=== PATIENT | female | born 1945 | race Caucasian/White ===

== ENCOUNTER 2018-01-13 11:21 | Inpatient (IN) | payer OTHER ==
[2018-01-13] MEDS ORDERED: SODIUM CHLORIDE 0.9% 1000 ML INFUS.BAG IV ONE (11:42)
[2018-01-13] MEDS ORDERED: PANTOPRAZOLE SODIUM 40 MG VIAL ONE (11:52)
[2018-01-13] MEDS: PANTOPRAZOLE SODIUM 80 MG in SODIUM CHLORIDE 100 ML IVPB ONE ×2 (11:54→21:06)
[2018-01-13] MEDS ORDERED: OCTREOTIDE ACETATE 100 MCG/1 ML ONE (11:57)
[2018-01-13] MEDS ORDERED: SODIUM CHLORIDE 250 ML IV STA (12:00)
[2018-01-13] MEDS: OCTREOTIDE ACETATE 50 MCG/1 ML - 1 ML VIAL IVPUSH ONE ×2 (12:02→21:06)
--- NOTE | 2018-01-13 12:08 | PDOC ---
History of Present Illness <Tomasa Davis - Last Filed: 01/13/18 13:15> - General History Source: Patient Exam Limitations: No Limitations - History of Present Illness Initial Comments: 01/13/18 12:08 The patient is a 72F with a PMH of COPD, mitral valve regurgitation, aortic stenosis, and HTN, who presents to the ER with complaints of lightheadedness. The patient is with her grandson's daughter who helps translate. The patient states that she felt lightheaded when she woke up today, similar to an episode 3 -4 months ago where she syncopized. She denies any syncope and near syncope. She denies CP, SOB, palpitations, nausea, and vomiting. <Elliot hCo - Last Filed: 01/14/18 12:15> - General Chief Complaint: Lightheaded Stated Complaint: Lightheaded Time Seen by Provider: 01/13/18 11:30 Past History <Tomasa Davis - Last Filed: 01/13/18 13:15> - Past Medical History Cardiac Disorders: Yes (CAD non obstructive, aortic stenosis) COPD: Yes HTN: Yes Hypercholesterolemia: Yes - Immunization History Immunization Up to Date: No - Suicide/Smoking/Psychosocial Hx Smoking History: Never smoked Have you smoked in the past 12 months: No Information on smoking cessation initiated: No Hx Alcohol Use: No Drug/Substance Use Hx: No Substance Use Type: None <Elliot Cho - Last Filed: 01/14/18 12:15> - Past Medical History Allergies/Adverse Reactions: Allergies Allergy/AdvReac Type Severity Reaction Status Date / Time No Known Allergies Allergy Verified 01/13/18 11:45 Home Medications: Ambulatory Orders Albuterol Sulfate [Proair Respiclick] 90 mcg IH ASDIR 01/13/18 Clonidine HCl [Clonidine HCl ER] 0.1 mg PO DAILY 01/13/18 Fluticasone/Salmeterol [Advair 250-50 Diskus] 1 each IH BID 01/13/18 Meloxicam 15 mg PO DAILY 01/13/18 Nifedipine [Procardia Xl] 30 mg PO DAILY 01/13/18 Aspirin [ASA -] 81 mg PO DAILY 01/14/18 Review of Systems - Review of Systems Able to Perform ROS?: Yes Comments:: 01/13/18 12:20 GENERAL/CONSTITUTIONAL: Positive for weakness and fatigue. No fever or chills. HEAD, EYES, EARS, NOSE AND THROAT: No change in vision. No ear pain or discharge. No sore throat. CARDIOVASCULAR: Positive for lightheadedness. No chest pain or palpitations. RESPIRATORY: No cough, wheezing, shortness of breath, or hemoptysis. GASTROINTESTINAL: No nausea, vomiting, diarrhea, constipation, or abdominal pain. GENITOURINARY: No dysuria, frequency, hematuria, or change in urination. MUSCULOSKELETAL: No joint or muscle swelling or pain. No neck or back pain. SKIN: No rash or lesions. NEUROLOGIC: No headache, numbness, tingling, focal weakness, loss of consciousness, or change in strength/sensation. ENDOCRINE: No increased thirst. No abnormal weight change. HEMATOLOGIC/LYMPHATIC: No anemia, easy bleeding, or history of blood clots. ALLERGIC/IMMUNOLOGIC: No hives or skin allergy. Is the patient limited Nigerien proficient: No <Elliot Cho - Last Filed: 01/14/18 12:15> *Physical Exam - Vital Signs Last Vital Signs Temp Pulse Resp BP Pulse Ox 99.3 F 107 H 16 104/60 100 01/13/18 11:30 01/13/18 11:30 01/13/18 11:30 01/13/18 11:30 01/13/18 11:30 <Tomasa Davis - Last Filed: 01/13/18 13:15> - Vital Signs Last Vital Signs Temp Pulse Resp BP Pulse Ox 99.3 F 107 H 16 104/60 100 01/13/18 11:30 01/13/18 11:30 01/13/18 11:30 01/13/18 11:30 01/13/18 11:30 - Physical Exam Comments: 01/13/18 12:21 GENERAL: Well developed, well nourished. Awake and alert. No acute distress. Pale HEENT: Normocephalic, atraumatic. Hearing grossly normal. Moist mucous membranes. PERRLA, EOMI. Mild conjunctival pallor. Sclera are non-icteric. NECK: Supple. Full ROM. No JVD. CARDIOVASCULAR: Regular rate and rhythm. Systolic murmur appreciated. PULMONARY: No evidence of respiratory distress. Lungs clear to auscultation bilaterally. No wheezing, rales or rhonchi. ABDOMINAL: Soft. Non-tender. Non-distended. No rebound or guarding. GENITOURINARY: No CVA tenderness bilaterally. MUSCULOSKELETAL: Normal range of motion at all joints. No bony deformities or tenderness. EXTREMITIES: No cyanosis. No clubbing. No edema. No calf tenderness or swelling. SKIN: Warm and dry. Normal capillary refill. No rashes. No jaundice. NEUROLOGICAL: Alert, awake, appropriate. Cranial nerves 2-12 intact. Normal speech. Gait is normal without ataxia. PSYCHIATRIC: Cooperative. Good eye contact. Appropriate mood and affect. <Elliot Cho - Last Filed: 01/14/18 12:15> ED Treatment Course - LABORATORY CBC & Chemistry Diagram: 01/13/18 11:50 01/13/18 12:05 - ADDITIONAL ORDERS Additional order review: Laboratory Results 01/13/18 01/13/18 01/13/18 12:10 12:05 12:05 PT with INR INR PTT (Actin FS) VBG pH 7.32 POC VBG pCO2 49.9 POC VBG pO2 32.7 Mixed VBG HCO3 24.8 Sodium 144 Potassium 4.4 Chloride 109 H Carbon Dioxide 27 Anion Gap 8 BUN 60 H Creatinine 0.8 Creat Clearance w eGFR > 60 Random Glucose 117 H Lactic Acid Calcium 7.9 L Magnesium 1.9 Total Bilirubin 0.3 AST 19 ALT 16 Alkaline Phosphatase 71 Creatine Kinase 77 Troponin I 0.02 Total Protein 5.3 L Albumin 2.9 L Stool Occult Blood Positive Crossmatch 01/13/18 01/13/18 01/13/18 12:05 11:56 11:50 PT with INR INR PTT (Actin FS) 28.9 VBG pH POC VBG pCO2 POC VBG pO2 Mixed VBG HCO3 Sodium Potassium Chloride Carbon Dioxide Anion Gap BUN Creatinine Creat Clearance w eGFR Random Glucose Lactic Acid 2.3 H* Calcium Magnesium Total Bilirubin AST ALT Alkaline Phosphatase Creatine Kinase Troponin I Total Protein Albumin Stool Occult Blood Crossmatch See Detail 01/13/18 11:50 PT with INR 12.90 INR 1.14 H PTT (Actin FS) VBG pH POC VBG pCO2 POC VBG pO2 Mixed VBG HCO3 Sodium Potassium Chloride Carbon Dioxide Anion Gap BUN Creatinine Creat Clearance w eGFR Random Glucose Lactic Acid Calcium Magnesium Total Bilirubin AST ALT Alkaline Phosphatase Creatine Kinase Troponin I Total Protein Albumin Stool Occult Blood Crossmatch 01/13/18 11:50 RBC 2.72 L MCV 86.1 MCHC 32.8 RDW 15.6 MPV 9.7 Neutrophils % 64.6 Lymphocytes % 22.9 Monocytes % 9.0 Eosinophils % 2.7 Basophils % 0.8 - Medications Given in the ED: ED Medications Discontinued Medications Generic Name Dose Route Start Last Admin Trade Name Freq PRN Reason Stop Dose Admin Pantoprazole Sodium 80 mg/ 100 mls @ 100 mls/hr 01/13/18 12:15 01/13/18 11:54 Sodium Chloride IVPB 01/13/18 13:14 200 mls/hr ONCE ONE Administration Sodium Chloride 250 mls @ 250 mls/hr 01/13/18 12:00 01/13/18 12:26 Normal Saline - IV 01/13/18 12:59 Not Given ASDIR STA Octreotide Acetate 50 mcg 01/13/18 12:15 01/13/18 12:02 Sandostatin - IVPUSH 01/13/18 12:16 50 mcg ONCE ONE Administration Sodium Chloride 1,000 ml 01/13/18 11:42 01/13/18 11:54 Normal Saline - IV 01/13/18 11:43 1,000 ml ONCE ONE Administration - Consult/PCP Case discussed with consulting physician: Emily Blue (Placed call with her office. Awaiting call back ) <Tomasa Davis - Last Filed: 01/13/18 13:15> - LABORATORY CBC & Chemistry Diagram: 01/14/18 05:30 01/13/18 12:05 - RADIOLOGY Radiology Studies Ordered: Category Date Time Status CHEST X-RAY PORTABLE* [RAD] Stat Radiology 01/13/18 11:42 Ordered - Medications Given in the ED: ED Medications Discontinued Medications Generic Name Dose Route Start Last Admin Trade Name Freq PRN Reason Stop Dose Admin Sodium Chloride 1,000 ml 01/13/18 11:42 01/13/18 11:54 Normal Saline - IV 01/13/18 11:43 1,000 ml ONCE ONE Administration <Elliot Cho - Last Filed: 01/14/18 12:15> Medical Decision Making - Medical Decision Making 01/13/18 12:21 The patient is a 72F with a PMH of HTN, COPD, mitral valve regurg, and aortic stenosis who presents to the ER for lightheadedness. Prior to my evaluation, she vomited dark red blood. She denies any melanotic stool. The patient has a low grade fever and is tachycardic, concerning for sepsis. On review of the patient's medication list, she has been taking meloxicam qD for 2 months for R shoulder pain. She is also on plavix but is not sure why. Concern for UGIB. Will give protonix and octreotide with fluids. Pt is hemodynamically stable. Pending labs and imaging. 01/13/18 13:09 H/H 7.7/23.5. Will give 1 unit. Stool occult +. Ordered [address] Blue paged. 01/13/18 13:57 Dr. Blue paged x 2. I have endorsed the patient to Dr. Zapata for admission. 01/13/18 14:46 I have spoken to Dr. Goldsmith, covering for Dr. Blue, who wants to scope the pt today. Will place NPO order. <Elliot Cho - Last Filed: 01/14/18 12:15> *DC/Admit/Observation/Transfer <Tomasa Davis - Last Filed: 01/13/18 13:15> - Discharge Dispostion Decision to Admit order: Yes <Elliot Cho - Last Filed: 01/14/18 12:15> Diagnosis at time of Disposition: Upper GI bleed - Discharge Dispostion Condition at time of disposition: Guarded
[2018-01-13 12:25] LABS: BASO % 0.8 % (0-2.0); EOS % 2.7 % (0-4.5); HEMATOCRIT 23.5 % (32.4-45.2); HEMOGLOBIN 7.7 GM/dL (10.7-15.3); LYMPH % 22.9 % (8-40); MCH 28.2 pg (25.7-33.7); MCHC 32.8 g/dl (32.0-36.0); MEAN CELL VOLUME 86.1 fl (80-96); MEAN PLT VOLUME 9.7 fl (7.5-11.1); NEUT % 64.6 % (42.8-82.8); PLATELET COUNT 315 K/MM3 (134-434); RBC 2.72 M/mm3 (3.60-5.2); RDW 15.6 % (11.6-15.6); WHITE BLOOD COUNT 7.3 K/mm3 (4.0-10.0)
[2018-01-13 12:27] LABS: VENOUS PC02 49.9 mmHg (38-52); VENOUS PH 7.32 (7.32-7.42); VENOUS PO2 32.7 mmHg (28-48)
[2018-01-13 12:43] LABS: INR 1.14 (0.83-1.09); PROTHROMBIN TIME (PATIENT) 12.9 SEC (9.7-13.0)
--- NOTE | 2018-01-13 12:44 | PDOC ---
Attending Attestation - Resident Resident Name: Rohit Fernandes - ED Attending Attestation I have performed the following: I have examined & evaluated the patient, The case was reviewed & discussed with the resident, I agree w/resident's findings & plan, Exceptions are as noted - HPI HPI: 01/13/18 12:39 72 years old PES medical history significant for COPD mitral valve regurg aortic stenosis hypertension presents with dizziness lightheadedness. Upon arrival to the emergency department patient had an episode of coffee- ground emesis. Symptoms are persistent concent moderate severity exacerbating or relieving factors. ROS: A complete review of 10 out of 10 review of systems is taken and is negative apart from what is previously mentioned below and in the HPI. - Physicial Exam PE: 01/13/18 12:39 Vitals: Triage Vital signs reviewed General Appearance: no acute distress, well nourished well developed, Head: Atraumatic, Neck: Supple;No Nucal rigidity Chest Wall: Nontender Cardiac: Regular rate and rhythym, Lungs: Clear to auscultation bilateral, good air movement bilaterally, Abdomen: Soft, non distended, normal bowel sounds, non tender to palpation Extremities: Full range of motion to all extremities, no cyanosis, clubbing, or edema Skin: Warm and dry, no rashes or lesions, no rash, no petechiae Psych: normal mood, normal affect - Medical Decision Making 01/13/18 12:42 72 years old history examination concerning for upper GI bleed Labs and Protonix ordered Patient noted to be anemic 1 unit PRBCs ordered GI consulted We'll admit to medicine for further management. Heart Score/ECG Review - ECG Impressions Comment:: 01/13/18 12:40 EKG performed at 1137 demonstrates sinus tachycardia [address] elevations or T- wave inversions. Interpreted by me.
[2018-01-13 13:05] LABS: ALBUMIN 2.9 g/dl (3.4-5.0); ANION GAP 8 MMOL/L (8-16); BILIRUBIN,TOTAL 0.3 mg/dL (0.2-1.0); BLOOD UREA NITROGEN 60 mg/dL (7-18); CALCIUM 7.9 mg/dL (8.5-10.1); CHLORIDE 109 mmol/L (98-107); CO2 27 mmol/L (21-32); CREATININE 0.8 mg/dL (0.55-1.3); GLUCOSE,RANDOM 117 mg/dL (74-106); MAGNESIUM 1.9 mg/dL (1.8-2.4); POTASSIUM 4.4 mmol/L (3.5-5.1); SGOT/AST 19 U/L (15-37); SGPT/ALT 16 U/L (13-61); SODIUM 144 mmol/L (136-145); TOT PROT 5.3 g/dl (6.4-8.2)
[2018-01-13 13:08] LABS: ALK PHOS 71 U/L (45-117)
--- NOTE | 2018-01-13 14:29 | EKG ---
Test Reason : Blood Pressure : / mmHG Vent. Rate : 109 BPM Atrial Rate : 109 BPM P-R Int : 126 ms QRS Dur : 108 ms QT Int : 372 ms P-R-T Axes : 059 040 042 degrees QTc Int : 500 ms SINUS TACHYCARDIA INCOMPLETE RIGHT BUNDLE BRANCH BLOCK BORDERLINE ECG NO PREVIOUS ECGS AVAILABLE Confirmed by AGATHA MCGILL MD ([id number]) on 01/13/2018 2:28:49 PM Referred By: Confirmed By:AGATHA MCGILL MD
[2018-01-13] MEDS ORDERED: EPINEPHrine 1:10,000 (P-F SYR) 1 MG/10 ML DISP.SYRIN ONE ×2 (15:04)
--- NOTE | 2018-01-13 16:10 | CON.GI ---
Consult Consult Specialty:: GI Reason for Consultation:: Witnessed hematemesis while in ED - History of Present Illness History of Present Illness: Chart reviewed. ED assessment noted. Medical history noted. - History Source History Provided By: Patient, Family Member, Medical Record - Alcohol/Substance Use Hx Alcohol Use: No - Smoking History Smoking history: Never smoked Have you smoked in the past 12 months: No Home Medications - Allergies Allergies/Adverse Reactions: Allergies Allergy/AdvReac Type Severity Reaction Status Date / Time No Known Allergies Allergy Verified 01/13/18 11:45 - Home Medications Home Medications: Ambulatory Orders Albuterol Sulfate [Proair Respiclick] 90 mcg IH ASDIR 01/13/18 Clonidine HCl [Clonidine HCl ER] 0.1 mg PO DAILY 01/13/18 Fluticasone/Salmeterol [Advair 250-50 Diskus] 1 each IH BID 01/13/18 Meloxicam 15 mg PO DAILY 01/13/18 Nifedipine [Procardia Xl] 30 mg PO DAILY 01/13/18 Family Disease History - Family Disease History Family History: Unremarkable Review of Systems Findings/Remarks: as per HPI, ED, H&P Physical Exam-GI Vital Signs: Vital Signs Temperature 99.3 F 01/13/18 11:30 Pulse Rate 107 H 01/13/18 11:30 Respiratory Rate 16 01/13/18 11:30 Blood Pressure 104/60 01/13/18 11:30 O2 Sat by Pulse Oximetry (%) 100 01/13/18 11:30 Constitutional: Yes: Well Nourished, No Distress, Calm, Pallor Eyes: Yes: Conjunctiva Clear HENT: Yes: Atraumatic Neck: Yes: Supple Cardiovascular: Yes: Regular Rate and Rhythm Respiratory: Yes: Regular Gastrointestinal Inspection: No: Ascites, Distention ...Auscultate: Yes: Normoactive Bowel Sounds ...Palpate: Yes: Soft. No: Firm/Rigid, Guarding, Mass, Tenderness, Tenderness, Epigastium, Tenderness, Rebound Neurological: Yes: Alert, Oriented Labs: CBC, BMP 01/13/18 11:50 01/13/18 12:05 INR, PTT INR 1.14 (0.83-1.09) H 01/13/18 11:50 Laboratory Last Values WBC 7.3 K/mm3 (4.0-10.0) 01/13/18 11:50 RBC 2.72 M/mm3 (3.60-5.2) L 01/13/18 11:50 Hgb 7.7 GM/dL (10.7-15.3) L 01/13/18 11:50 Hct 23.5 % (32.4-45.2) L 01/13/18 11:50 MCV 86.1 fl (80-96) 01/13/18 11:50 MCH 28.2 pg (25.7-33.7) 01/13/18 11:50 MCHC 32.8 g/dl (32.0-36.0) 01/13/18 11:50 RDW 15.6 % (11.6-15.6) 01/13/18 11:50 Plt Count 315 K/MM3 (134-434) 01/13/18 11:50 MPV 9.7 fl (7.5-11.1) 01/13/18 11:50 Absolute Neuts (auto) 4.7 K/mm3 (1.5-8.0) 01/13/18 11:50 Neutrophils % 64.6 % (42.8-82.8) 01/13/18 11:50 Lymphocytes % 22.9 % (8-40) 01/13/18 11:50 Monocytes % 9.0 % (3.8-10.2) 01/13/18 11:50 Eosinophils % 2.7 % (0-4.5) 01/13/18 11:50 Basophils % 0.8 % (0-2.0) 01/13/18 11:50 Nucleated RBC % 0 % (0-0) 01/13/18 11:50 PT with INR 12.90 SEC (9.7-13.0) 01/13/18 11:50 INR 1.14 (0.83-1.09) H 01/13/18 11:50 PTT (Actin FS) 28.9 SECONDS (25.2-36.5) 01/13/18 11:50 VBG pH 7.32 (7.32-7.42) 01/13/18 12:10 POC VBG pCO2 49.9 mmHg (38-52) 01/13/18 12:10 POC VBG pO2 32.7 mmHg (28-48) 01/13/18 12:10 Mixed VBG HCO3 24.8 meq/L (19-25) 01/13/18 12:10 Sodium 144 mmol/L (136-145) 01/13/18 12:05 Potassium 4.4 mmol/L (3.5-5.1) 01/13/18 12:05 Chloride 109 mmol/L (98-107) H 01/13/18 12:05 Carbon Dioxide 27 mmol/L (21-32) 01/13/18 12:05 Anion Gap 8 MMOL/L (8-16) 01/13/18 12:05 BUN 60 mg/dL (7-18) H 01/13/18 12:05 Creatinine 0.8 mg/dL (0.55-1.3) 01/13/18 12:05 Creat Clearance w eGFR > 60 (>60) 01/13/18 12:05 Random Glucose 117 mg/dL (74-106) H 01/13/18 12:05 Lactic Acid 0.9 mmol/L (0.4-2.0) 01/13/18 14:30 Calcium 7.9 mg/dL (8.5-10.1) L 01/13/18 12:05 Magnesium 1.9 mg/dL (1.8-2.4) 01/13/18 12:05 Total Bilirubin 0.3 mg/dL (0.2-1.0) 01/13/18 12:05 AST 19 U/L (15-37) 01/13/18 12:05 ALT 16 U/L (13-61) 01/13/18 12:05 Alkaline Phosphatase 71 U/L (45-117) 01/13/18 12:05 Creatine Kinase 77 IU/L (26-192) 01/13/18 12:05 Troponin I 0.02 ng/ml (0.00-0.05) 01/13/18 12:05 Total Protein 5.3 g/dl (6.4-8.2) L 01/13/18 12:05 Albumin 2.9 g/dl (3.4-5.0) L 01/13/18 12:05 Stool Occult Blood Positive (NEGATIVE) 01/13/18 12:05 Blood Type O POSITIVE 01/13/18 12:05 Antibody Screen Negative 01/13/18 12:05 Crossmatch See Detail 01/13/18 12:05 Problem List - Problems (1) Nausea & vomiting Code(s): R11.2 - NAUSEA WITH VOMITING, UNSPECIFIED (2) Hematemesis Code(s): K92.0 - HEMATEMESIS (3) NSAID long-term use 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 Tachycardic on admission with hypochromic, microcytic anemia however w/o reports of melena,hematochezia, fever, odynophagia , dysphagia, or dyspepsia. No prior episodes of the same. No documented hx of PUD, gastritis, esopahgitis. Never had EGD. EGD was performed this afternoon and the following was found: ESOPHAGUS: Three non-bleeding, round and shallow ulcers ranging between 3-7mm in size with a red spots were found at the gastroesophageal junction. esophagitis. The ulcers were not consisted with Jarad lesions. There were no no evidence of esophageal varices, or significant esophagitis. STOMACH: The mucosa of the stomach appeared normal. Significant amount of clotted blood was found in the fundus and relocated to otherwise normal- appearing proximal small bowel. No lesions, or gastritis were noted in the fundus, or the rest of the stomach. Retroflexed views in the stomach revealed no abnormalities. No biopsies taken this time. DUODENUM: The duodenal mucosa showed no abnormalities in the bulb and second portion of the duodenum. Recommend: ICU x 24 hrs Stop NSAIDs Carafate liquid 1 gm po qid Protonix PO BID x 15 days, then QD x 30 days Soft diet starting tomorrow if no signs of ongoing GI bleeding noted. CBC in AM
--- NOTE | 2018-01-13 17:45 | HP ---
Admitting History and Physical - Primary Care Physician PCP: Juli Zapata - Admission History of Present Illness: A 72F with the above chronic medical issues and NSAID use was admitted with c/o nausea and vomiting blood. Tachycardic on admission with hypochromic, microcytic anemia. PMH of COPD, mitral valve regurgitation, aortic stenosis, and HTN, who presents to the ER with complaints of lightheadedness. The patient is with her grandson' s daughter who helps translate. The patient states that she felt lightheaded when she woke up today, similar to an episode 3-4 months ago where she syncopized. She denies any syncope and near syncope. She denies CP, SOB, palpitations, nausea, and vomiting. - Past Medical History Cardiovascular: Yes: HTN Pulmonary: Yes: COPD - Smoking History Smoking history: Never smoked Have you smoked in the past 12 months: No - Alcohol/Substance Use Hx Alcohol Use: No Home Medications - Allergies Allergies/Adverse Reactions: Allergies Allergy/AdvReac Type Severity Reaction Status Date / Time No Known Allergies Allergy Verified 01/13/18 11:45 - Home Medications Home Medications: Ambulatory Orders Albuterol Sulfate [Proair Respiclick] 90 mcg IH ASDIR 01/13/18 Clonidine HCl [Clonidine HCl ER] 0.1 mg PO DAILY 01/13/18 Fluticasone/Salmeterol [Advair 250-50 Diskus] 1 each IH BID 01/13/18 Nifedipine [Procardia Xl] 30 mg PO DAILY 01/13/18 Aspirin [ASA -] 81 mg PO DAILY 01/14/18 Pantoprazole Sodium [Protonix] 40 mg PO DAILY #30 tablet. 01/14/18 Sucralfate Oral Suspension [Carafate Oral Suspension -] 1 gm PO QID #100 ml Physical Examination Vital Signs: Vital Signs Temperature 97.8 F 01/13/18 16:58 Pulse Rate 95 H 01/13/18 16:58 Respiratory Rate 20 01/13/18 16:58 Blood Pressure 157/94 01/13/18 16:58 O2 Sat by Pulse Oximetry (%) 100 01/13/18 16:58 Constitutional: Yes: No Distress HENT: Yes: Atraumatic Neck: Yes: Supple Cardiovascular: Yes: Regular Rate and Rhythm Respiratory: Yes: CTA Bilaterally Gastrointestinal: Yes: Normal Bowel Sounds Extremities: Yes: WNL Labs: CBC, BMP 01/13/18 11:50 01/13/18 12:05 Problem List - Problems (1) Hematemesis Assessment/Plan: monitor h/h 2 u prbc go consult npo protonix Code(s): K92.0 - HEMATEMESIS (2) NSAID long-term use Assessment/Plan: hold Code(s): Z79.1 - MCFP (CURRENT) USE OF NON-STEROIDAL NON-INFLAM (NSAID) (3) Upper GI bleed Assessment/Plan: resolved had egd report reviewed Code(s): K92.2 - GASTROINTESTINAL HEMORRHAGE, UNSPECIFIED Assessment/Plan Laboratory Tests 01/13/18 01/13/18 01/13/18 11:50 11:50 11:50 WBC 7.3 RBC 2.72 L Hgb 7.7 L Hct 23.5 L MCV 86.1 MCH 28.2 MCHC 32.8 RDW 15.6 Plt Count 315 MPV 9.7 Absolute Neuts (auto) 4.7 Neutrophils % 64.6 Lymphocytes % 22.9 Monocytes % 9.0 Eosinophils % 2.7 Basophils % 0.8 Nucleated RBC % 0 PT with INR 12.90 INR 1.14 H PTT (Actin FS) VBG pH POC VBG pCO2 POC VBG pO2 Mixed VBG HCO3 Sodium Potassium Chloride Carbon Dioxide Anion Gap BUN Creatinine Creat Clearance w eGFR Random Glucose Lactic Acid Calcium Magnesium Total Bilirubin AST ALT Alkaline Phosphatase Creatine Kinase Troponin I Total Protein Albumin Stool Occult Blood Blood Type O POSITIVE Antibody Screen Crossmatch 01/13/18 01/13/18 01/13/18 11:50 11:56 12:05 WBC RBC Hgb Hct MCV MCH MCHC RDW Plt Count MPV Absolute Neuts (auto) Neutrophils % Lymphocytes % Monocytes % Eosinophils % Basophils % Nucleated RBC % PT with INR INR PTT (Actin FS) 28.9 VBG pH POC VBG pCO2 POC VBG pO2 Mixed VBG HCO3 Sodium Potassium Chloride Carbon Dioxide Anion Gap BUN Creatinine Creat Clearance w eGFR Random Glucose Lactic Acid 2.3 H* Calcium Magnesium Total Bilirubin AST ALT Alkaline Phosphatase Creatine Kinase Troponin I Total Protein Albumin Stool Occult Blood Blood Type O POSITIVE Antibody Screen Negative Crossmatch See Detail 01/13/18 01/13/18 01/13/18 12:05 12:05 12:10 WBC RBC Hgb Hct MCV MCH MCHC RDW Plt Count MPV Absolute Neuts (auto) Neutrophils % Lymphocytes % Monocytes % Eosinophils % Basophils % Nucleated RBC % PT with INR INR PTT (Actin FS) VBG pH 7.32 POC VBG pCO2 49.9 POC VBG pO2 32.7 Mixed VBG HCO3 24.8 Sodium 144 Potassium 4.4 Chloride 109 H Carbon Dioxide 27 Anion Gap 8 BUN 60 H Creatinine 0.8 Creat Clearance w eGFR > 60 Random Glucose 117 H Lactic Acid Calcium 7.9 L Magnesium 1.9 Total Bilirubin 0.3 AST 19 ALT 16 Alkaline Phosphatase 71 Creatine Kinase 77 Troponin I 0.02 Total Protein 5.3 L Albumin 2.9 L Stool Occult Blood Positive Blood Type Antibody Screen Crossmatch 01/13/18 14:30 WBC RBC Hgb Hct MCV MCH MCHC RDW Plt Count MPV Absolute Neuts (auto) Neutrophils % Lymphocytes % Monocytes % Eosinophils % Basophils % Nucleated RBC % PT with INR INR PTT (Actin FS) VBG pH POC VBG pCO2 POC VBG pO2 Mixed VBG HCO3 Sodium Potassium Chloride Carbon Dioxide Anion Gap BUN Creatinine Creat Clearance w eGFR Random Glucose Lactic Acid 0.9 Calcium Magnesium Total Bilirubin AST ALT Alkaline Phosphatase Creatine Kinase Troponin I Total Protein Albumin Stool Occult Blood Blood Type Antibody Screen Crossmatch Active Medications Generic Name Dose Route Start Last Admin Trade Name Freq PRN Reason Stop Dose Admin Pantoprazole Sodium 40 mg 01/13/18 22:00 Protonix - PO BID YOEL Sucralfate 1 gm 01/13/18 18:00 Carafate Oral Suspension - PO QID YOEL Active Medications Generic Name Dose Route Start Last Admin Trade Name Freq PRN Reason Stop Dose Admin Sodium Chloride 1,000 mls @ 75 mls/hr 01/13/18 19:00 01/13/18 19:07 Normal Saline - IV 75 mls/hr ASDIR YOEL Administration Non-Formulary Medication 90 mcg 01/13/18 19:30 Albuterol Sulfate [Proair Respiclick] IH ASDIR YOEL Non-Formulary Medication 1 each 01/13/18 22:00 Fluticasone/Salmeterol [Advair 250-50 Diskus] IH BID YOEL Pantoprazole Sodium 40 mg 01/13/18 22:00 Protonix - PO BID YOEL Sucralfate 1 gm 01/13/18 18:00 01/13/18 21:06 Carafate Oral Suspension - PO Not Given QID YOEL cc time 60 min
[2018-01-13 18:05] VITALS: BMI 57.4
--- NOTE | 2018-01-13 18:21 | CONSULT ---
Consultation: REQUESTING PROVIDER: Dr. Goldsmith CONSULT REQUEST: We have been asked to medically evaluate this patient for Dr. Zapata. HISTORY OF PRESENT ILLNESS:. 72 y.o. F w/ PMHx. of COPD(not on home O2), HTN, MR , , chronic NSAID use presents to the ED with dizziness, lightheadedness, nausea and vomiting. Upon evaluation in the ED Pt. had witnessed hematemesis. Pt. had a prior episodes of syncope 3-4 months ago and noted that today felt similar to the prior time. Pt. presents to the ICU receiving 1 unit pRBCs. Pt. at this time denies nausea, vomiting, dizziness, chest pain, shortness of breath or abdominal pain. REVIEW OF SYSTEMS: CONSTITUTIONAL: Absent: fever, chills, diaphoresis CARDIOVASCULAR: Absent: chest pain, syncope, palpitations, lightheadedness, peripheral edema RESPIRATORY: Absent: cough, shortness of breath GASTROINTESTINAL:Absent: abdominal pain, abdominal distension, nausea, vomiting , diarrhea, constipation NEUROLOGIC: Absent: headache, focal weakness or paresthesias, dizziness PHYSICAL EXAMINATION Vital Signs - 24 hr 01/13/18 01/13/18 01/13/18 11:30 13:57 16:07 Temperature 99.3 F 98.6 F 97.8 F Pulse Rate 107 H 95 H 95 H Respiratory 16 20 20 Rate Blood Pressure 104/60 157/94 125/67 O2 Sat by Pulse 100 100 Oximetry (%) 01/13/18 01/13/18 01/13/18 16:22 16:37 16:58 Temperature 97.8 F Pulse Rate 93 H 92 H 95 H Respiratory 20 20 20 Rate Blood Pressure 149/76 162/83 157/94 O2 Sat by Pulse 100 100 100 Oximetry (%) GENERAL: Awake, alert, and fully oriented, in no acute distress. EYES:extraocular movements grossly intact, sclera anicteric, conjunctiva clear. EARS, NOSE, THROAT: Ears normal, nares patent, oropharynx clear without exudates. Moist mucous membranes. LUNGS: Breath sounds equal, clear to auscultation bilaterally. No wheezes, and no crackles. No accessory muscle use. Limited d/t loudness of systolic murmur. HEART: Regular rate and rhythm, normal S1 and S2 with systolic murmur ABDOMEN: Soft, nontender, not distended, normoactive bowel sounds, no guarding, no rebound. UPPER EXTREMITIES: warm, well-perfused. No cyanosis. No clubbing. Cap refill <2 seconds. No peripheral edema. LOWER EXTREMITIES: 2+ dorsal pedal pulses, warm, well-perfused. No calf tenderness. No peripheral edema. NEUROLOGICAL: Normal speech. PSYCHIATRIC: Cooperative. Good eye contact. Appropriate mood and affect. SKIN: Warm, dry, normal turgor. Laboratory Results - last 24 hr 01/13/18 01/13/18 01/13/18 11:50 11:50 11:50 WBC 7.3 RBC 2.72 L Hgb 7.7 L Hct 23.5 L MCV 86.1 MCH 28.2 MCHC 32.8 RDW 15.6 Plt Count 315 MPV 9.7 Absolute Neuts (auto) 4.7 Neutrophils % 64.6 Lymphocytes % 22.9 Monocytes % 9.0 Eosinophils % 2.7 Basophils % 0.8 Nucleated RBC % 0 PT with INR 12.90 INR 1.14 H PTT (Actin FS) VBG pH POC VBG pCO2 POC VBG pO2 Mixed VBG HCO3 Sodium Potassium Chloride Carbon Dioxide Anion Gap BUN Creatinine Creat Clearance w eGFR Random Glucose Lactic Acid Calcium Magnesium Total Bilirubin AST ALT Alkaline Phosphatase Creatine Kinase Troponin I Total Protein Albumin Stool Occult Blood Blood Type O POSITIVE Antibody Screen Crossmatch 01/13/18 01/13/18 01/13/18 11:50 11:56 12:05 WBC RBC Hgb Hct MCV MCH MCHC RDW Plt Count MPV Absolute Neuts (auto) Neutrophils % Lymphocytes % Monocytes % Eosinophils % Basophils % Nucleated RBC % PT with INR INR PTT (Actin FS) 28.9 VBG pH POC VBG pCO2 POC VBG pO2 Mixed VBG HCO3 Sodium Potassium Chloride Carbon Dioxide Anion Gap BUN Creatinine Creat Clearance w eGFR Random Glucose Lactic Acid 2.3 H* Calcium Magnesium Total Bilirubin AST ALT Alkaline Phosphatase Creatine Kinase Troponin I Total Protein Albumin Stool Occult Blood Blood Type O POSITIVE Antibody Screen Negative Crossmatch See Detail 01/13/18 01/13/18 01/13/18 12:05 12:05 12:10 WBC RBC Hgb Hct MCV MCH MCHC RDW Plt Count MPV Absolute Neuts (auto) Neutrophils % Lymphocytes % Monocytes % Eosinophils % Basophils % Nucleated RBC % PT with INR INR PTT (Actin FS) VBG pH 7.32 POC VBG pCO2 49.9 POC VBG pO2 32.7 Mixed VBG HCO3 24.8 Sodium 144 Potassium 4.4 Chloride 109 H Carbon Dioxide 27 Anion Gap 8 BUN 60 H Creatinine 0.8 Creat Clearance w eGFR > 60 Random Glucose 117 H Lactic Acid Calcium 7.9 L Magnesium 1.9 Total Bilirubin 0.3 AST 19 ALT 16 Alkaline Phosphatase 71 Creatine Kinase 77 Troponin I 0.02 Total Protein 5.3 L Albumin 2.9 L Stool Occult Blood Positive Blood Type Antibody Screen Crossmatch 01/13/18 14:30 WBC RBC Hgb Hct MCV MCH MCHC RDW Plt Count MPV Absolute Neuts (auto) Neutrophils % Lymphocytes % Monocytes % Eosinophils % Basophils % Nucleated RBC % PT with INR INR PTT (Actin FS) VBG pH POC VBG pCO2 POC VBG pO2 Mixed VBG HCO3 Sodium Potassium Chloride Carbon Dioxide Anion Gap BUN Creatinine Creat Clearance w eGFR Random Glucose Lactic Acid 0.9 Calcium Magnesium Total Bilirubin AST ALT Alkaline Phosphatase Creatine Kinase Troponin I Total Protein Albumin Stool Occult Blood Blood Type Antibody Screen Crossmatch Active Medications Current Medications Pantoprazole Sodium (Protonix -) 40 mg PO BID YOEL Sucralfate (Carafate Oral Suspension -) 1 gm PO QID YOEL ASSESSMENT/PLAN: 72 y.o. F w/ PMHx. of COPD(not on home O2), HTN, MR, , chronic NSAID use presents to the ED with dizziness, lightheadedness, nausea and vomiting. Pt. had witnessed hematemesis in the ED and was sent for EGD. #Gastroenterology -Upper GI Bleed GI consult(Dr. Goldsmith) appreciated EGD- showed 3 non-bleeding round shallow ulcers 3-7mm in size w/ red spots of GE junction, esophagitis, significant clotted blood in fundus that was relocated to duodenum. No pathology seen in stomach or duodenum. No biopsies taken. Received 1 unit pRBC f/u CBC ordered post transfusion FOBT+ NPO Protonix BID x 14 days and then QID x 30days Sucralfate 1 gm PO QID #Pulmonary -COPD Resume Advair 250-50 diskus Resume Proair respiclick #Cardiovascular -HTN resume home medication in the AM( Clonidine 0.1mg ER, Nifedipine 30 mg ER) Hold Meloxicam # F/E/N -NPO---> soft diet in the AM if bleeding has stopped -NS @ 75ml/hr Dispo: ICU for 24hr monitoring We will continue to follow the patient. Thank you for this consultative opportunity. Visit type - Emergency Visit Emergency Visit: Yes ED Registration Date: 01/13/18 Care time: The patient presented to the Emergency Department on the above date and was hospitalized for further evaluation of their emergent condition. - New Patient This patient is new to me today: Yes Date on this admission: 01/13/18 - Critical Care Critical Care patient: No
[2018-01-13] MEDS ORDERED: SODIUM CHLORIDE 1,000 ML IV SCH (19:00)
[2018-01-13] MEDS ORDERED: PATIENT'S OWN MEDICATION (NON-FORMULARY) (Albuterol Sulfate [Proair Respiclick] 90 MCG) IH SCH (19:30)
[2018-01-13 19:33] LABS: HEMATOCRIT 26.6 % (32.4-45.2); HEMOGLOBIN 8.7 GM/dL (10.7-15.3); MCH 28.2 pg (25.7-33.7); MCHC 32.7 g/dl (32.0-36.0); MEAN CELL VOLUME 86.1 fl (80-96); MEAN PLT VOLUME 9.5 fl (7.5-11.1); PLATELET COUNT 246 K/MM3 (134-434); RDW 15.8 % (11.6-15.6); WHITE BLOOD COUNT 11.1 K/mm3 (4.0-10.0)
[2018-01-13 20:33] LABS: URINE APPEARANCE CLEAR; URINE BILIRUBIN NEGATIVE (<2.0 mg/dL); URINE COLOR LTYELLOW; URINE GLUCOSE (UA) NEGATIVE (NEGATIVE); URINE KETONE NEGATIVE (NEGATIVE); URINE LEUK ESTERASE NEGATIVE (NEGATIVE); URINE NITRITE NEGATIVE (NEGATIVE); URINE PROTEIN NEGATIVE (NEGATIVE); URINE UROBILINOGEN NEGATIVE mg/dL (0.2-1.0)
[2018-01-13] MEDS: SUCRALFATE 1 GM/10 ML UNIT DOSE CUPS PO SCH ×2 (21:06→21:13)
[2018-01-13] MEDS: PANTOPRAZOLE 40 MG TABLET (FP) PO SCH (21:12)
[2018-01-14 06:12] LABS: BASO % 0.2 % (0-2.0); HEMATOCRIT 22.3 % (32.4-45.2); HEMOGLOBIN 7.6 GM/dL (10.7-15.3); LYMPH % 9.1 % (8-40); MCH 28.7 pg (25.7-33.7); MCHC 33.9 g/dl (32.0-36.0); MEAN CELL VOLUME 84.8 fl (80-96); MEAN PLT VOLUME 9.6 fl (7.5-11.1); MONO % 5.6 % (3.8-10.2); NEUT % 85.1 % (42.8-82.8); PLATELET COUNT 232 K/MM3 (134-434); RBC 2.63 M/mm3 (3.60-5.2); RDW 15.4 % (11.6-15.6); WHITE BLOOD COUNT 9.2 K/mm3 (4.0-10.0)
[2018-01-14] MEDS ORDERED: ALBUTEROL SO4 0.083% IH SOL 2.5 MG/3 ML VIAL.NEB. NEB ONE (08:00)
[2018-01-14] MEDS ORDERED: PT OWN MED DRAWER 7, Y5N ONE ×3 (08:32→21:55)
--- NOTE | 2018-01-14 08:38 | PN ---
Progress Note (short form) - Note Progress Note: Anesthesia Post op Pt seen and examined S:Alert and awake O: Vital Signs Temperature 98.9 F 01/14/18 06:00 Pulse Rate 115 H 01/14/18 08:00 Respiratory Rate 14 01/14/18 08:00 Blood Pressure 144/82 01/14/18 08:00 O2 Sat by Pulse Oximetry (%) 100 01/13/18 19:52 CBC, BMP 01/14/18 05:30 01/13/18 12:05 A/P Current Active Problems Hematemesis (Acute) NSAID long-term use (Acute) Nausea & vomiting (Acute) Upper GI bleed (Acute) s/p EGD Guarded condition Continue current care Francis Nova MD
[2018-01-14] MEDS ORDERED: PATIENT'S OWN MEDICATION (NON-FORMULARY) (Clonidine Hcl [Clonidine Hcl Er] 0.1 MG) PO SCH (10:00)
[2018-01-14] MEDS ORDERED: BUDESONIDE/FORMETEROL FUMARATE 80/4.5 mcg INHALER IH SCH (10:00)
[2018-01-14] MEDS: SUCRALFATE 1 GM/10 ML UNIT DOSE CUPS PO SCH ×4 (10:02→21:58)
[2018-01-14] MEDS: PANTOPRAZOLE 40 MG TABLET (FP) PO SCH ×2 (10:02→21:57)
--- NOTE | 2018-01-14 12:24 | PN ---
Physical Exam: SUBJECTIVE: Patient seen and examined. Pt. had 1 non-bloody bowel movement. Pt. sleeps with 2 pillows at home. Pt. endorses difficulty breathing. Pt. denies chest pain, abdominal pain, nausea, vomiting, or hematemesis at this time. OBJECTIVE: Vital Signs Period Temp Pulse Resp BP Sys/[place] Pulse Ox Last 24 Hr 97.8 F-99.3 F 92-124 14-25 125-162/66-94 100-100 GENERAL: The patient is awake, alert, and in moderate respiratory distress. EYES: PERRL, sclera anicteric, conjunctiva clear. No ptosis. ENT: Ears normal, nares patent, oropharynx clear without exudates, moist mucous membranes. NECK: Trachea midline, accessory muscle use observed here LUNGS: diffuse wheezes, prolonged expiration, accessory muscle use. HEART: Regular rate and rhythm, S1, S2 with loud systolic murmur ABDOMEN: Soft, nontender, nondistended, normoactive bowel sounds, no guarding, no rebound EXTREMITIES: 1+ right radial pulse, 1+ b/l dorsal pedal pulses warm, well- perfused, no edema, no calf tendernessm 2< sec capillary refill time. NEUROLOGICAL: Normal speech, gait not observed. PSYCH: Normal mood, normal affect. SKIN: Warm, dry, normal turgor, no rashes or lesions noted Laboratory Results - last 24 hr 01/13/18 01/13/18 01/13/18 11:50 11:50 11:50 WBC 7.3 RBC 2.72 L Hgb 7.7 L Hct 23.5 L MCV 86.1 MCH 28.2 MCHC 32.8 RDW 15.6 Plt Count 315 MPV 9.7 Absolute Neuts (auto) 4.7 Neutrophils % 64.6 Lymphocytes % 22.9 Monocytes % 9.0 Eosinophils % 2.7 Basophils % 0.8 Nucleated RBC % 0 PT with INR 12.90 INR 1.14 H PTT (Actin FS) VBG pH POC VBG pCO2 POC VBG pO2 Mixed VBG HCO3 Sodium Potassium Chloride Carbon Dioxide Anion Gap BUN Creatinine Creat Clearance w eGFR Random Glucose Lactic Acid Calcium Magnesium Total Bilirubin AST ALT Alkaline Phosphatase Creatine Kinase Troponin I Total Protein Albumin Urine Color Urine Appearance Urine pH Ur Specific [place] Urine Protein Urine Glucose (UA) Urine Ketones Urine Blood Urine Nitrite Urine Bilirubin Urine Urobilinogen Ur Leukocyte Esterase Blood Type O POSITIVE Antibody Screen Crossmatch 01/13/18 01/13/18 01/13/18 11:50 11:56 12:05 WBC RBC Hgb Hct MCV MCH MCHC RDW Plt Count MPV Absolute Neuts (auto) Neutrophils % Lymphocytes % Monocytes % Eosinophils % Basophils % Nucleated RBC % PT with INR INR PTT (Actin FS) 28.9 VBG pH POC VBG pCO2 POC VBG pO2 Mixed VBG HCO3 Sodium Potassium Chloride Carbon Dioxide Anion Gap BUN Creatinine Creat Clearance w eGFR Random Glucose Lactic Acid 2.3 H* Calcium Magnesium Total Bilirubin AST ALT Alkaline Phosphatase Creatine Kinase Troponin I Total Protein Albumin Urine Color Urine Appearance Urine pH Ur Specific [place] Urine Protein Urine Glucose (UA) Urine Ketones Urine Blood Urine Nitrite Urine Bilirubin Urine Urobilinogen Ur Leukocyte Esterase Blood Type O POSITIVE Antibody Screen Negative Crossmatch See Detail 01/13/18 01/13/18 01/13/18 12:05 12:10 14:30 WBC RBC Hgb Hct MCV MCH MCHC RDW Plt Count MPV Absolute Neuts (auto) Neutrophils % Lymphocytes % Monocytes % Eosinophils % Basophils % Nucleated RBC % PT with INR INR PTT (Actin FS) VBG pH 7.32 POC VBG pCO2 49.9 POC VBG pO2 32.7 Mixed VBG HCO3 24.8 Sodium 144 Potassium 4.4 Chloride 109 H Carbon Dioxide 27 Anion Gap 8 BUN 60 H Creatinine 0.8 Creat Clearance w eGFR > 60 Random Glucose 117 H Lactic Acid 0.9 Calcium 7.9 L Magnesium 1.9 Total Bilirubin 0.3 AST 19 ALT 16 Alkaline Phosphatase 71 Creatine Kinase 77 Troponin I 0.02 Total Protein 5.3 L Albumin 2.9 L Urine Color Urine Appearance Urine pH Ur Specific [place] Urine Protein Urine Glucose (UA) Urine Ketones Urine Blood Urine Nitrite Urine Bilirubin Urine Urobilinogen Ur Leukocyte Esterase Blood Type Antibody Screen Crossmatch 01/13/18 01/13/18 01/14/18 19:00 19:49 05:30 WBC 11.1 H 9.2 RBC 3.10 L 2.63 L Hgb 8.7 L 7.6 L Hct 26.6 L 22.3 L D MCV 86.1 84.8 MCH 28.2 28.7 MCHC 32.7 33.9 RDW 15.8 H 15.4 Plt Count 246 D 232 MPV 9.5 9.6 Absolute Neuts (auto) 7.8 Neutrophils % 85.1 H D Lymphocytes % 9.1 D Monocytes % 5.6 Eosinophils % 0.0 D Basophils % 0.2 Nucleated RBC % 0 PT with INR INR PTT (Actin FS) VBG pH POC VBG pCO2 POC VBG pO2 Mixed VBG HCO3 Sodium Potassium Chloride Carbon Dioxide Anion Gap BUN Creatinine Creat Clearance w eGFR Random Glucose Lactic Acid Calcium Magnesium Total Bilirubin AST ALT Alkaline Phosphatase Creatine Kinase Troponin I Total Protein Albumin Urine Color Ltyellow Urine Appearance Clear Urine pH 5.0 Ur Specific [place] 1.016 Urine Protein Negative Urine Glucose (UA) Negative Urine Ketones Negative Urine Blood Negative Urine Nitrite Negative Urine Bilirubin Negative Urine Urobilinogen Negative Ur Leukocyte Esterase Negative Blood Type Antibody Screen Crossmatch Active Medications Current Medications Budesonide/Formoterol Fumarate (Symbicort 80/4.5mcg -) 2 puff IH BID YOEL Sodium Chloride (Normal Saline -) 1,000 mls @ 75 mls/hr IV ASDIR [facility] Last Admin: 01/13/18 19:07 Dose: 75 mls/hr Non-Formulary Medication (Albuterol Sulfate [Proair Respiclick]) 90 mcg IH ASDIR [facility] Non-Formulary Medication (Clonidine Hcl [Clonidine Hcl Er]) 0.1 mg PO DAILY YOEL Pantoprazole Sodium (Protonix -) 40 mg PO BID [facility] Last Admin: 01/14/18 10:02 Dose: 40 mg Sucralfate (Carafate Oral Suspension -) 1 gm PO QID [facility] Last Admin: 01/14/18 10:02 Dose: 1 gm ASSESSMENT/PLAN: 72 y.o. F w/ PMHx. of COPD(not on home O2), HTN, MR, , chronic NSAID use presents to the ED with dizziness, lightheadedness, nausea and vomiting. Pt. had witnessed hematemesis in the ED and was sent for EGD. #Gastroenterology -Upper GI Bleed GI consult(Dr. Goldsmith) appreciated EGD- showed 3 non-bleeding round shallow ulcers 3-7mm in size w/ red spots of GE junction, esophagitis, significant clotted blood in fundus that was relocated to duodenum. No pathology seen in stomach or duodenum. No biopsies taken. Received 2nd unit pRBC in the AM- HgB was 7.6( Of note post transfusion CBC did have an adequate response to 8.7, however in the AM it dropped to 7.6) CBC ordered post transfusion FOBT+ NPO Protonix BID x 14 days and then QID x 30days Sucralfate 1 gm PO QID #Pulmonary -COPD Resume Advair 250-50 diskus Resume Proair respiclick Duonebs PRN #Cardiovascular -HTN resume home medication in the AM( Clonidine 0.1mg ER, Nifedipine 30 mg ER) Hold Meloxicam -Anemia 2/2 acute blood loss given 2 units of pRBCs monitor H/H f/u post transfusion CBC @ 14:30 # F/E/N -NPO---> soft diet in the AM if bleeding has stopped -NS @ 75ml/hr Dispo: ICU for 24hr monitoring We will continue to follow the patient. Thank you for this consultative opportunity.
--- NOTE | 2018-01-14 12:27 | PN ---
Teaching Attending Note Name of Resident: Juan David English ATTENDING PHYSICIAN STATEMENT I saw and evaluated the patient. I reviewed the resident's note and discussed the case with the resident. I agree with the resident's findings and plan as documented. SUBJECTIVE: Pt seen and examined in the ICU. s/p EGD showing esophagitis and esophageal ulcers. Receiving PRBC transusion this AM. Feels better today. Denies shortness of breath or chest pain. OBJECTIVE: Vital Signs Period Temp Pulse Resp BP Sys/[place] Pulse Ox Last 24 Hr 97.8 F-99.3 F 92-124 14-25 125-162/66-94 100-100 Intake & Output 01/11/18 01/12/18 01/13/18 01/14/18 23:59 23:59 23:59 23:59 Intake Total 800 900 Balance 800 900 Weight 133.4 kg 59.931 kg Gen: mildly tachypneic at rest Heart: tachycardic, +systolic murmur Lung: decreased breath sounds at the bases Abd: soft, nontender Ext: no edema CBC, BMP 01/14/18 05:30 01/13/18 12:05 Active Medications Budesonide/Formoterol Fumarate (Symbicort 80/4.5mcg -) 2 puff IH BID YOEL Sodium Chloride (Normal Saline -) 1,000 mls @ 75 mls/hr IV [facility]IR [facility] Last Admin: 01/13/18 19:07 Dose: 75 mls/hr Non-Formulary Medication (Albuterol Sulfate [Proair Respiclick]) 90 mcg IH [facility] Non-Formulary Medication (Clonidine Hcl [Clonidine Hcl Er]) 0.1 mg PO DAILY YOEL Pantoprazole Sodium (Protonix -) 40 mg PO BID [facility] Last Admin: 01/14/18 10:02 Dose: 40 mg Sucralfate (Carafate Oral Suspension -) 1 gm PO QID [facility] Last Admin: 01/14/18 10:02 Dose: 1 gm ASSESSMENT AND PLAN: Upper GI Bleed Esophagitis/Esophageal Ulcers Chronic NSAID use COPD Mitral Regurgitation Aortic Stenosis HTN - monitor H/H - transfuse as needed - protonix BID - sucralfate - EKG - echocardiogram - O2 as needed - inhaled bronchodilators - continue IVF - PO per GI - DVT prophylaxis
[2018-01-14] MEDS ORDERED: SODIUM CHLORIDE 1,000 ML IV SCH (15:13)
[2018-01-14] MEDS ORDERED: PATIENT'S OWN MEDICATION (NON-FORMULARY) (Albuterol Sulfate [Proair Respiclick] 90 MCG) IH SCH (15:13)
[2018-01-14 15:47] LABS: BASO % 0.4 % (0-2.0); EOS % 0.2 % (0-4.5); HEMATOCRIT 26.6 % (32.4-45.2); HEMOGLOBIN 8.9 GM/dL (10.7-15.3); MCH 28.1 pg (25.7-33.7); MCHC 33.5 g/dl (32.0-36.0); MEAN CELL VOLUME 83.9 fl (80-96); MONO % 10.6 % (3.8-10.2); NEUT % 74.8 % (42.8-82.8); PLATELET COUNT 239 K/MM3 (134-434); RBC 3.18 M/mm3 (3.60-5.2); RDW 16.3 % (11.6-15.6); WHITE BLOOD COUNT 9.9 K/mm3 (4.0-10.0)
--- NOTE | 2018-01-14 16:16 | EKG ---
Test Reason : Blood Pressure : / mmHG Vent. Rate : 112 BPM Atrial Rate : 112 BPM P-R Int : 144 ms QRS Dur : 114 ms QT Int : 354 ms P-R-T Axes : 061 038 046 degrees QTc Int : 483 ms SINUS TACHYCARDIA INCOMPLETE RIGHT BUNDLE BRANCH BLOCK BORDERLINE ECG WHEN COMPARED WITH ECG OF 13-JAN-2018 11:37, NO SIGNIFICANT CHANGE WAS FOUND Confirmed by Albino Hughes ([id number]) on 01/14/2018 4:16:34 PM Referred By: Soraya FLORES Confirmed By:Albino Hughes
[2018-01-14] MEDS ORDERED: SUCRALFATE 1 GM/10 ML UNIT DOSE CUPS PO SCH (18:00)
--- NOTE | 2018-01-14 18:00 | PN ---
Progress Note, Physician History of Present Illness: doing well - Current Medication List Current Medications: Active Medications Budesonide/Formoterol Fumarate (Symbicort 80/4.5mcg -) 2 puff IH BID YOEL Sodium Chloride (Normal Saline -) 1,000 mls @ 75 mls/hr IV ASDIR [facility] Last Admin: 01/14/18 17:03 Dose: 75 mls/hr Non-Formulary Medication (Albuterol Sulfate [Proair Respiclick]) 90 mcg IH ASDIR [facility] Non-Formulary Medication (Clonidine Hcl [Clonidine Hcl Er]) 0.1 mg PO DAILY YOEL Pantoprazole Sodium (Protonix -) 40 mg PO BID YOEL Sucralfate (Carafate Oral Suspension -) 1 gm PO ACHS YOEL Last Admin: 01/14/18 16:57 Dose: 1 gm - Objective Vital Signs: Vital Signs Temperature 98.4 F 01/14/18 16:10 Pulse Rate 108 H 01/14/18 16:10 Respiratory Rate 20 01/14/18 16:10 Blood Pressure 150/89 01/14/18 16:10 O2 Sat by Pulse Oximetry (%) 97 01/14/18 09:00 Constitutional: Yes: No Distress HENT: Yes: Atraumatic Neck: Yes: Supple Cardiovascular: Yes: Regular Rate and Rhythm Respiratory: Yes: CTA Bilaterally Gastrointestinal: Yes: Normal Bowel Sounds Extremities: Yes: WNL Neurological: Yes: Alert, Oriented Labs: CBC, BMP 01/14/18 15:15 01/13/18 12:05 INR, PTT INR 1.14 (0.83-1.09) H 01/13/18 11:50 Problem List - Problems (1) Hematemesis Assessment/Plan: no more endoscopy report reviewed Code(s): K92.0 - HEMATEMESIS (2) NSAID long-term use Code(s): Z79.1 - MCC (CURRENT) USE OF NON-STEROIDAL NON-INFLAM (NSAID) (3) Upper GI bleed Assessment/Plan: resolved Code(s): K92.2 - GASTROINTESTINAL HEMORRHAGE, UNSPECIFIED Assessment/Plan will start soft diet h/h stable dc planning
--- NOTE | 2018-01-14 18:38 | DS ---
Physical Examination Vital Signs: Vital Signs Temperature 98.4 F 01/14/18 16:10 Pulse Rate 108 H 01/14/18 16:10 Respiratory Rate 20 01/14/18 16:10 Blood Pressure 150/89 01/14/18 16:10 O2 Sat by Pulse Oximetry (%) 97 01/14/18 09:00 Labs: CBC, BMP 01/14/18 15:15 01/13/18 12:05 Discharge Summary Reason For Visit: UPPER GASTROINTESTINAL HEMORRHAGE Current Active Problems Esophageal ulcer with bleeding (Acute) Esophagitis (Acute) Hematemesis (Acute) NSAID long-term use (Acute) Nausea & vomiting (Acute) Upper GI bleed (Acute) Condition: Guarded - Instructions - Home Medications Comprehensive Discharge Medication List: Ambulatory Orders Albuterol Sulfate [Proair Respiclick] 90 mcg IH ASDIR 01/13/18 Clonidine HCl [Clonidine HCl ER] 0.1 mg PO DAILY 01/13/18 Fluticasone/Salmeterol [Advair 250-50 Diskus] 1 each IH BID 01/13/18 Nifedipine [Procardia Xl] 30 mg PO DAILY 01/13/18 Aspirin [ASA -] 81 mg PO DAILY 01/14/18 Pantoprazole Sodium [Protonix] 40 mg PO DAILY #30 tablet. 01/14/18 Sucralfate Oral Suspension [Carafate Oral Suspension -] 1 gm PO QID #100 ml co home
[2018-01-14] MEDS: BUDESONIDE/FORMETEROL FUMARATE 80/4.5 mcg INHALER IH SCH (21:59)
[2018-01-15] MEDS ORDERED: PT OWN MED DRAWER 7, Y5N ONE ×3 (05:55→07:18)
[2018-01-15] MEDS: SUCRALFATE 1 GM/10 ML UNIT DOSE CUPS PO SCH ×2 (06:02→13:23)
[2018-01-15] MEDS: BUDESONIDE/FORMETEROL FUMARATE 80/4.5 mcg INHALER IH SCH ×2 (07:20→09:13)
[2018-01-15 07:51] LABS: BASO % 0.5 % (0-2.0); EOS % 2.1 % (0-4.5); HEMATOCRIT 25.6 % (32.4-45.2); HEMOGLOBIN 8.5 GM/dL (10.7-15.3); LYMPH % 16.9 % (8-40); MCH 27.9 pg (25.7-33.7); MEAN CELL VOLUME 84.5 fl (80-96); MEAN PLT VOLUME 8.9 fl (7.5-11.1); MONO % 9.1 % (3.8-10.2); NEUT % 71.4 % (42.8-82.8); PLATELET COUNT 226 K/MM3 (134-434); RBC 3.03 M/mm3 (3.60-5.2); RDW 16.7 % (11.6-15.6); WHITE BLOOD COUNT 8.7 K/mm3 (4.0-10.0)
[2018-01-15 08:13] LABS: ALBUMIN 2.9 g/dl (3.4-5.0); ANION GAP 7 MMOL/L (8-16); BLOOD UREA NITROGEN 22 mg/dL (7-18); CALCIUM 7.7 mg/dL (8.5-10.1); CHLORIDE 114 mmol/L (98-107); CO2 25 mmol/L (21-32); CREATININE 0.7 mg/dL (0.55-1.3); GLUCOSE,RANDOM 96 mg/dL (74-106); POTASSIUM 3.5 mmol/L (3.5-5.1); SGOT/AST 22 U/L (15-37); SGPT/ALT 17 U/L (13-61); SODIUM 146 mmol/L (136-145)
[2018-01-15 08:15] LABS: ALK PHOS 62 U/L (45-117); BILIRUBIN,TOTAL 0.5 mg/dL (0.2-1); TOT PROT 5.3 g/dl (6.4-8.2)
[2018-01-15] MEDS: PANTOPRAZOLE 40 MG TABLET (FP) PO SCH (09:13)
[2018-01-15] MEDS ORDERED: PATIENT'S OWN MEDICATION (NON-FORMULARY) (Clonidine Hcl [Clonidine Hcl Er] 0.1 MG) PO SCH (10:00)
--- NOTE | 2018-01-15 11:51 | PN ---
Progress Note (short form) - Note Progress Note: Comfortable. No acute events. No stigmata of ongoing GI bleeding. No dysohagia, odynophagia, dyspepsia, melena. HGB remains stable. Continue current GI care. Discussed with the PT and her daughter Problem List - Problems (1) Nausea & vomiting Code(s): R11.2 - NAUSEA WITH VOMITING, UNSPECIFIED (2) Hematemesis Code(s): K92.0 - HEMATEMESIS (3) NSAID long-term use Code(s): Z79.1 - [employer] (CURRENT) USE OF NON-STEROIDAL NON-INFLAM (NSAID)
[2018-01-15 14:37] VITALS: BP 129/75; PULSE 106; TEMP 99.2
--- NOTE | 2018-01-15 15:54 | DS ---
Physical Examination Vital Signs: Vital Signs Temperature 99.2 F 01/15/18 14:35 Pulse Rate 106 H 01/15/18 14:35 Respiratory Rate 20 01/15/18 14:35 Blood Pressure 129/75 01/15/18 14:35 O2 Sat by Pulse Oximetry (%) 97 01/15/18 09:00 Constitutional: Yes: No Distress HENT: Yes: Atraumatic Neck: Yes: Supple Cardiovascular: Yes: Regular Rate and Rhythm Respiratory: Yes: CTA Bilaterally Gastrointestinal: Yes: Normal Bowel Sounds Extremities: Yes: WNL Neurological: Yes: Alert, Oriented Labs: CBC, BMP 01/15/18 07:10 01/15/18 07:10 Discharge Summary Reason For Visit: UPPER GASTROINTESTINAL HEMORRHAGE Current Active Problems Esophageal ulcer with bleeding (Acute) Esophagitis (Acute) Hematemesis (Acute) NSAID long-term use (Acute) Nausea & vomiting (Acute) Upper GI bleed (Acute) Condition: Guarded - Instructions Referrals: Moses Ponce MD [Staff Physician] - Juli Zapata MD [Staff Physician] - Elliot Fernando MD [Staff Physician] - - Home Medications Comprehensive Discharge Medication List: Ambulatory Orders Albuterol Sulfate [Proair Respiclick] 90 mcg IH ASDIR 01/13/18 Clonidine HCl [Clonidine HCl ER] 0.1 mg PO DAILY 01/13/18 Fluticasone/Salmeterol [Advair 250-50 Diskus] 1 each IH BID 01/13/18 Nifedipine [Procardia Xl] 30 mg PO DAILY 01/13/18 Aspirin [ASA -] 81 mg PO DAILY 01/14/18 Pantoprazole Sodium [Protonix] 40 mg PO DAILY #30 tablet. 01/14/18 Sucralfate Oral Suspension [Carafate Oral Suspension -] 1 gm PO QID #100 ml oh home
== END 2018-01-15 16:35 | disposition home or self-care (01) | DRG 381 ==
LOC: JER 11:21 → INTOOBSV 13:57 → UNDOADMOB 13:57 → JERBED 13:57 → JICU 17:03 → JERBED 17:03 → JICU 18:33 → OBSVTOIN 01-14 12:00 → J8W 01-14 15:55
PROVIDERS: ADMIT Internal Medicine; ATTEND Internal Medicine
PROC: 30233N1 Transfusion of Nonautologous Red Blood Cells into Peripheral Vein, Percutaneous Approach (ICD-10-PCS; 2018-01-13)
PROC: 0DJ08ZZ Inspection of Upper Intestinal Tract, Via Natural or Artificial Opening Endoscopic (ICD-10-PCS; principal; 2018-01-13 14:45)
DX: K22.11 Ulcer of esophagus with bleeding (principal); D62 Acute posthemorrhagic anemia; J44.9 Chronic obstructive pulmonary disease, unspecified; I34.0 Nonrheumatic mitral (valve) insufficiency; I35.0 Nonrheumatic aortic (valve) stenosis; I10 Essential (primary) hypertension; D64.9 Anemia, unspecified; Z79.1 Long term (current) use of non-steroidal anti-inflammatories (NSAID)
CPT/HCPCS: 36415; 36430; 71045-TC-FY; 80053; 81003; 82272; 82550; 82803; 83605; 83735; 84484; 85025; 85027; 85610; 85730; 86850; 86900; 86901; 86922; 87040; 87086; 93005; 93010; 94640; 99284-25; G0378; J7030; P9038; P9058

== ENCOUNTER 2018-01-23 11:36 | Emergency (ER) | payer OTHER ==
[2018-01-23 12:00] VITALS: BP 152/87; PULSE 101; BMI 23.4
[2018-01-23] MEDS ORDERED: ALBUTEROL SO4 2.5/IPRATROPIUM 0.5 INH SOL 3 ML VIAL.NEB. NEB ONE ×2 (12:30→13:18)
--- NOTE | 2018-01-23 12:52 | PDOC ---
History of Present Illness - General Chief Complaint: Back Pain Stated Complaint: LOW BACK PAIN Time Seen by Provider: 01/23/18 11:45 History Source: Family (daughter) Exam Limitations: Language Barrier - History of Present Illness Initial Comments: 01/23/18 12:53 *pt is Lao speaking only. Daughter translated Pt is a 72yo f with PMH of asthma, PUD, htn, aortic stenosis, mvp presenting to ED with 1 day history of lower back pain. Yesterday pt was sitting down and when she got up she felt the pain across her lower back. Pain is only in the lower back, stronger on the sides, does not radiate 9/10 relieved with sitting, worse with standing or laying down. Daughter gave pt extra strength Tylenol but it did not help. Pt feels short of breath due to the pain and is experiencing hot flashes. Denies fever, urinary retention, urinary incontinence, bowel incontinence, numbness/tingling in the groin, Past History - Past Medical History Allergies/Adverse Reactions: Allergies Allergy/AdvReac Type Severity Reaction Status Date / Time No Known Allergies Allergy Verified 01/13/18 11:45 Home Medications: Ambulatory Orders Albuterol Sulfate Inhaler - [Ventolin Hfa Inhaler -] 1 - 2 inh PO Q4H 01/23/18 Clonidine HCl 0.1 mg PO DAILY 01/23/18 Nifedipine ER [Procardia Xl -] 30 mg PO DAILY 01/23/18 Pantoprazole Sodium [Protonix] 40 mg PO DAILY 01/23/18 Anemia: No Asthma: Yes Cancer: No Cardiac Disorders: Yes (CAD non obstructive, aortic stenosis) COPD: Yes HTN: Yes Hypercholesterolemia: Yes - Immunization History Immunization Up to Date: No - Suicide/Smoking/Psychosocial Hx Smoking History: Former smoker Have you smoked in the past 12 months: No Information on smoking cessation initiated: No Hx Alcohol Use: No Drug/Substance Use Hx: No Substance Use Type: None *Physical Exam - Vital Signs Last Vital Signs Temp Pulse Resp BP Pulse Ox 99.1 F 101 H 20 152/87 97 01/23/18 11:42 01/23/18 11:42 01/23/18 11:42 01/23/18 11:42 01/23/18 11:42 ED Treatment Course - LABORATORY CBC & Chemistry Diagram: 01/23/18 12:53 01/23/18 12:53 - RADIOLOGY Radiology Studies Ordered: Category Date Time Status CHEST X-RAY PORTABLE* [RAD] Stat Radiology 01/23/18 12:07 Taken Medical Decision Making - Medical Decision Making 01/23/18 13:02 Rectal 99.6 *DC/Admit/Observation/Transfer Diagnosis at time of Disposition: Back pain Qualifiers: Back pain location: low back pain Chronicity: acute Back pain laterality: bilateral Sciatica presence: without sciatica Qualified Code(s): M54.5 - Low back pain - Discharge Dispostion Disposition: HOME Condition at time of disposition: Improved Decision to Admit order: No - Referrals Referrals: Lula Moore MD [Primary Care Provider] - - Patient Instructions Printed Discharge Instructions: DI for Low Back Pain Additional Instructions: You were seen here today for lower back pain. The lab tests and CT scan was normal. Please follow up with Dr. Moore for further evaluation. And make an apppointment with Dr. Fernando within the next few days. I recommend making an appointment within a week. Try to rest your back, do not lift heavy objects. You have a prescription for tramadol, a pain medication at your pharmacy. Please come back to the emergency room if: your pain gets worse, you develop pain in your legs, you have urinary or bowel incontinence, you develop fever, you develop chest pain, you feel more short of breath, or if any new concerning symptom develops. Thank you Print Language: THAI - Post Discharge Activity
[2018-01-23 12:58] VITALS: TEMP 99.4
[2018-01-23] MEDS ORDERED: ACETAMINOPHEN 500 MG TABLET (FP) PO ONE (13:01)
[2018-01-23 13:05] LABS: BASO % 0.9 % (0-2.0); EOS % 1.4 % (0-4.5); HEMATOCRIT 25.4 % (32.4-45.2); HEMOGLOBIN 8.3 GM/dL (10.7-15.3); MCH 27.8 pg (25.7-33.7); MCHC 32.4 g/dl (32.0-36.0); MEAN CELL VOLUME 85.9 fl (80-96); MEAN PLT VOLUME 8.5 fl (7.5-11.1); MONO % 6.6 % (3.8-10.2); NEUT % 85.1 % (42.8-82.8); PLATELET COUNT 505 K/MM3 (134-434); RBC 2.96 M/mm3 (3.60-5.2); RDW 16.2 % (11.6-15.6); WHITE BLOOD COUNT 9.8 K/mm3 (4.0-10.0)
[2018-01-23 13:12] LABS: VENOUS PC02 46.7 mmHg (38-52); VENOUS PH 7.37 (7.32-7.42); VENOUS PO2 27.9 mmHg (28-48)
[2018-01-23 13:22] LABS: INR 1.09 (0.83-1.09); PROTHROMBIN TIME (PATIENT) 12.3 SEC (9.7-13.0)
[2018-01-23 13:24] LABS: ACTIVATED PTT 25.2 SECONDS (25.2-36.5)
[2018-01-23 13:43] LABS: ALK PHOS 95 U/L (45-117); ANION GAP 7 MMOL/L (8-16); BILIRUBIN,TOTAL 0.3 mg/dL (0.2-1); BLOOD UREA NITROGEN 11 mg/dL (7-18); CALCIUM 8.2 mg/dL (8.5-10.1); CHLORIDE 107 mmol/L (98-107); CO2 26 mmol/L (21-32); CREATININE 0.8 mg/dL (0.55-1.3); GLUCOSE,RANDOM 150 mg/dL (74-106); POTASSIUM 4.4 mmol/L (3.5-5.1); SGOT/AST 20 U/L (15-37); SGPT/ALT 17 U/L (13-61); SODIUM 140 mmol/L (136-145); TOT PROT 6.2 g/dl (6.4-8.2)
[2018-01-23] MEDS ORDERED: ACETAMINOPHEN 1000 MG/100 ML VIAL (NON FORMULARY) IVPB ONE (14:23)
--- NOTE | 2018-01-23 14:29 | EKG ---
Test Reason : Blood Pressure : / mmHG Vent. Rate : 099 BPM Atrial Rate : 099 BPM P-R Int : 130 ms QRS Dur : 114 ms QT Int : 392 ms P-R-T Axes : 047 007 037 degrees QTc Int : 503 ms SINUS RHYTHM WITH PREMATURE ATRIAL COMPLEXES INCOMPLETE RIGHT BUNDLE BRANCH BLOCK PROLONGED QT ABNORMAL ECG WHEN COMPARED WITH ECG OF 14-JAN-2018 11:43, PREMATURE ATRIAL COMPLEXES ARE NOW PRESENT Confirmed by LEROY RICHARDSON MD ([id number]) on 01/23/2018 2:29:13 PM Referred By: Confirmed By:LEROY RICHARDSON MD
[2018-01-23] MEDS ORDERED: SODIUM CHLORIDE 1,000 ML IV STA (14:32)
[2018-01-23 14:53] LABS: URINE APPEARANCE CLEAR; URINE BILIRUBIN NEGATIVE (<2.0 mg/dL); URINE GLUCOSE (UA) NEGATIVE (NEGATIVE); URINE KETONE NEGATIVE (NEGATIVE); URINE LEUK ESTERASE TRACE (NEGATIVE); URINE NITRITE NEGATIVE (NEGATIVE); URINE PROTEIN NEGATIVE (NEGATIVE)
[2018-01-23 14:56] LABS: URINE COLOR DK YELLOW
[2018-01-23 14:58] LABS: EPI CELLS RARE /HPF (FEW); URINE HYALINE CAST 1 /lpf; URINE MUCUS RARE
--- NOTE | 2018-01-23 15:31 | PDOC ---
Attending Attestation - HPI HPI: 01/23/18 15:36 The patient is a 72 year old female, with a significant PMH of asthma, peptic ulcer disease, aortic stenosis, mitral valve prolapse, who presents to the emergency department with lower back pain for one day. The patient denies any recent injuries or trauma. The patient states the lower back pain began after standing up from sitting down yesterday. The patient states the lower back pain is rated 9/10, non radiating, worsened while standing and alleviated while sitting. The patient states she has taken extra strength Tylenol for the pain with minimal relief. The patient denies any recent numbness, weakness or loss of sensation. Denies any recent bowel or bladder incontinence. The patent endorses shortness of breath secondary to the lower back pain. The patient denies chest pain,headache and dizziness. Denies fever, chills, nausea, vomit, diarrhea and constipation. Denies dysuria, frequency, urgency and hematuria. Allergies: NKA - Physicial Exam PE: 01/23/18 15:36 Vitals: Triage vital signs reviewed General Appearance: No acute distress, well nourished, well developed Head: Atraumatic Neck: Supple; No nuchal rigidity Chest Wall: Nontender Cardiac: Regular rate and rhythm, no murmurs, no rubs, no gallops Lungs: Clear to auscultation bilateral, good air movement bilaterally Abdomen: (+) Mild suprapubic discomfort. No rebound or guarding. Soft, nondistended, normal bowel sounds. Back: (+) Tenderness to palpation lower back. Rectal: Exam deferred Extremities: Full range of motion to all extremities, no cyanosis, clubbing, or edema Skin: Warm and dry, no rashes or lesions, no rash, no petechiae Neuro: AOX3; Cranial Nerves 2-12 grossly intact, Strength intact to all extremities, Sensation intact to all extremities. Psych: Normal mood, normal affect - Medical Decision Making 01/23/18 15:38 Patient is a 72 year old female, with history of asthma, peptic ulcer disease, aortic stenosis, mitral valve prolapse, presents to the emergency department with lower back pain for one day. Plan: Labs/ Blood work, Meds, EKG, Abdomen and Pelvis CT. <Hugo Gonzalez - Last Filed: 01/23/18 15:35> - Resident Resident Name: Elaina Murillo - ED Attending Attestation I have performed the following: I have examined & evaluated the patient, The case was reviewed & discussed with the resident, I agree w/resident's findings & plan, Exceptions are as noted - Medical Decision Making Well appearing no apparent distress dyspnea on exertion but known aortic stenosis is scheduled follow-up with cardiology for possible aortic valve replacement EKG is nonischemic troponin negative chest x-ray immunopathology patient feels better after pain medication we'll discharge home a short course of tramadol she 'll follow-up with cardiology in 2-3 days she'll return to emergency department for severe worsening symptoms or for any concerns. CT with no acute findings. <Moe Vaz - Last Filed: 01/23/18 18:09> Heart Score/ECG Review - ECG Impressions Comment:: 01/23/18 18:09 EKG performed at 1217 demonstrates sinus rhythm no ST elevations complete right bundle-branch block. <Moe Vaz - Last Filed: 01/23/18 18:09> Attestations - Attestations 01/23/18 15:38 Documentation prepared by Hugo Gonzalez, acting as medical device sales representative for Moe Vaz MD. <Hugo Gonzalez - Last Filed: 01/23/18 15:35>
== END 2018-01-23 18:46 | disposition home or self-care (01) ==
LOC: JER 11:36
PROC: 3E0F7GC Introduction of Other Therapeutic Substance into Respiratory Tract, Via Natural or Artificial Opening (ICD-10-PCS; principal; 2018-01-23)
PROC: 3E0337Z Introduction of Electrolytic and Water Balance Substance into Peripheral Vein, Percutaneous Approach (ICD-10-PCS; 2018-01-23)
PROC: 3E033NZ Introduction of Analgesics, Hypnotics, Sedatives into Peripheral Vein, Percutaneous Approach (ICD-10-PCS; 2018-01-23)
DX: M54.5 Low back pain (principal); J45.909 Unspecified asthma, uncomplicated; J44.9 Chronic obstructive pulmonary disease, unspecified; I10 Essential (primary) hypertension; E78.00 Pure hypercholesterolemia, unspecified; I35.0 Nonrheumatic aortic (valve) stenosis
CPT/HCPCS: 36415; 71045-TC-FY; 74177-TC; 80053; 81003; 81015; 82550; 82803; 83605; 84484; 85025; 85610; 85730; 87086; 93005; 93010; 99283-25; J0131; J7030; J7620

== ENCOUNTER 2018-02-18 12:55 | Inpatient (IN) | payer OTHER ==
[2018-02-18 15:16] LABS: BASO % 0.5 % (0-2.0); EOS % 0.1 % (0-4.5); HEMATOCRIT 26.3 % (32.4-45.2); HEMOGLOBIN 8.3 GM/dL (10.7-15.3); LYMPH % 1.7 % (8-40); MCH 24.9 pg (25.7-33.7); MCHC 31.7 g/dl (32.0-36.0); MEAN CELL VOLUME 78.7 fl (80-96); MEAN PLT VOLUME 7.9 fl (7.5-11.1); MONO % 2.8 % (3.8-10.2); NEUT % 94.9 % (42.8-82.8); PLATELET COUNT 426 K/MM3 (134-434); RBC 3.34 M/mm3 (3.60-5.2); RDW 18.2 % (11.6-15.6); WHITE BLOOD COUNT 12.4 K/mm3 (4.0-10.0)
[2018-02-18] MEDS ORDERED: methylPREDNISolone NA SUCC 125 MG/2 ML VIAL IVPUSH ONE (15:19)
[2018-02-18] MEDS ORDERED: ALBUTEROL SO4 2.5/IPRATROPIUM 0.5 INH SOL 3 ML VIAL.NEB. NEB ONE ×4 (15:47→21:04)
[2018-02-18 15:50] LABS: URINE APPEARANCE CLEAR; URINE BILIRUBIN NEGATIVE (<2.0 mg/dL); URINE COLOR LTYELLOW; URINE GLUCOSE (UA) NEGATIVE (NEGATIVE); URINE KETONE NEGATIVE (NEGATIVE); URINE LEUK ESTERASE 2+ (NEGATIVE); URINE NITRITE NEGATIVE (NEGATIVE); URINE PROTEIN NEGATIVE (NEGATIVE); URINE UROBILINOGEN NEGATIVE mg/dL (0.2-1.0)
[2018-02-18] MEDS: ALBUTEROL SO4 2.5/IPRATROPIUM 0.5 INH SOL 3 ML VIAL.NEB. NEB SCH ×4 (15:50→21:19)
[2018-02-18 16:04] LABS: EPI CELLS RARE /HPF (FEW)
[2018-02-18] MEDS ORDERED: SODIUM CHLORIDE 0.9% 500 ML INFUS.BAG IV ONE (16:10)
[2018-02-18] MEDS ORDERED: AZITHROMYCIN 500 MG TABLET PO ONE (16:10)
[2018-02-18] MEDS ORDERED: CEFTRIAXONE 1,000 MG in DEXTROSE 5%-WATER - 50 ML IVPB ONE (16:10)
--- NOTE | 2018-02-18 16:11 | PDOC ---
History of Present Illness - General History Source: Patient Exam Limitations: No Limitations - History of Present Illness Initial Comments: 02/18/18 17:12 Giuliana Spears is a 72-year-old female, with a significant PMH of asthma, CHF, COPD , CAD, peptic ulcer disease, aortic stenosis, mitral valve prolapse presenting with hypertension x 3 days, a/w nonproductive cough and wheezing. SBPs in 150s, up to 170s. Patient states she has been using her asthma medications with no relief of her symptoms. No f/c, n/v/d, constipation, urinary sx. No leg swelling. Allergies: NKA Social History: None reported. Surgical History: None reported. <Naty Brewster - Last Filed: 02/18/18 17:39> - General History Source: Patient Exam Limitations: No Limitations - History of Present Illness Initial Comments: Telisma setswana interpretation utilized. 02/18/18 19:53 <Ramya Key - Last Filed: 02/18/18 19:53> - General Chief Complaint: Shortness of Breath Stated Complaint: ASTHMA Time Seen by Provider: 02/18/18 13:38 Past History <Naty Brewster - Last Filed: 02/18/18 17:39> - Past Medical History Anemia: No Asthma: Yes Cancer: No Cardiac Disorders: Yes (CAD non obstructive, aortic stenosis) COPD: Yes CHF: Yes HTN: Yes Hypercholesterolemia: Yes - Immunization History Immunization Up to Date: No - Suicide/Smoking/Psychosocial Hx Smoking History: Unknown if ever smoked Have you smoked in the past 12 months: No Information on smoking cessation initiated: No Hx Alcohol Use: No Drug/Substance Use Hx: No Substance Use Type: None <Ramya Key - Last Filed: 02/18/18 19:53> - Past Medical History Allergies/Adverse Reactions: Allergies Allergy/AdvReac Type Severity Reaction Status Date / Time No Known Allergies Allergy Verified 02/18/18 13:28 Home Medications: Ambulatory Orders Albuterol Sulfate Inhaler - [Ventolin Hfa Inhaler -] 1 - 2 inh PO Q4H 01/23/18 Clonidine HCl 0.1 mg PO DAILY 01/23/18 Pantoprazole Sodium [Protonix] 40 mg PO DAILY 01/23/18 Budesonide/Formeterol Fumarate [SYMBICORT 160/4.5mcg -] 1 inh PO DAILY 02/18/18 Verapamil HCl [Verapamil ER] 240 mg PO DAILY 02/18/18 Review of Systems - Review of Systems Able to Perform ROS?: Yes Comments:: 02/18/18 17:13 GENERAL/CONSTITUTIONAL: No fever or chills. No weakness. no sweats. HEAD, EYES, EARS, NOSE AND THROAT: No change in vision or hearing. No ear pain or discharge. No sore throat or mouth pain. No difficulty swallowing. No congestion. CARDIOVASCULAR: No chest pain or palpitations, syncope or edema. RESPIRATORY: (+)Shortness of breath and wheezing. No cough, or hemoptysis. GASTROINTESTINAL No nausea/vomiting. No diarrhea or constipation. No bloody stools. GENITOURINARY: No hematuria, dysuria, frequency, urgency or other changes. MUSCULOSKELETAL: No joint or muscle swelling or pain. No neck or back pain. SKIN: No rash or changes in skin color or lesions. NEUROLOGIC: No headache, vertigo, loss of consciousness, or change in strength/ sensation. No gait instability. HEMATOLOGIC/LYMPHATIC: No anemia, easy bruising/bleeding, or history of blood clots. ALLERGIC/IMMUNOLOGIC: No allergies All other systems reviewed and negative, or as documented in HPI. <Naty Brewster - Last Filed: 02/18/18 17:39> *Physical Exam - Vital Signs Last Vital Signs Temp Pulse Resp BP Pulse Ox 98.2 F 97 H 16 155/93 100 02/18/18 13:26 02/18/18 13:26 02/18/18 13:26 02/18/18 13:26 02/18/18 13:26 - Physical Exam Comments: 02/18/18 17:13 General: Well appearing, awake and alert, NAD. HEENT: NCAT, PERRL, EOMI, clear conjunctiva, anicteric, moist mucus membranes, clear oropharynx, no oral lesions.. Neck: neck supple, FROM, no JVD. Resp: (+)Diffusely wheezing. No respiratory distress CVS: RRR, no murmurs, 2+ peripheral pulses throughout, no peripheral edema Abdomen: soft, NTND, no peritoneal signs. Back: nontender, normal inspection and ROM MSK: no edema, RETANA x4, ROM intact. No clubbing or cyanosis. normal bulk and tone. No calf tenderness. Neuro: alert, oriented appropriately; no focal neurologic deficits Skin: warm and well perfused, cap refill <2 sec, normal color <Herrera Brewsterie - Last Filed: 02/18/18 17:39> - Vital Signs Last Vital Signs Temp Pulse Resp BP Pulse Ox 98.2 F 97 H 16 155/93 100 02/18/18 13:26 02/18/18 13:26 02/18/18 13:26 02/18/18 13:26 02/18/18 13:26 <Ramya Key - Last Filed: 02/18/18 19:53> Heart Score/ECG Review - ECG Impressions Normal ECG: Yes Comment:: 02/18/18 17:54 EKG normal sinus rhythm, no interval abnormalities, narrow QRS, ST and T wave segments and morphology normal. Nonspecific T wave abnormalities, PACs present <Ramya Key - Last Filed: 02/18/18 19:53> ED Treatment Course - LABORATORY CBC & Chemistry Diagram: 02/18/18 15:07 02/18/18 15:07 - ADDITIONAL ORDERS Additional order review: Laboratory Results 02/18/18 02/18/18 15:40 15:07 Sodium 140 Potassium 3.8 Chloride 105 Carbon Dioxide 28 Anion Gap 7 L BUN 23 H Creatinine 0.9 Creat Clearance w eGFR > 60 Random Glucose 116 H Calcium 8.8 Total Bilirubin 0.3 AST 37 ALT 61 Alkaline Phosphatase 110 Creatine Kinase 64 Troponin I < 0.02 B-Natriuretic Peptide 2870.3 H Total Protein 6.6 Albumin 3.6 Urine Color Ltyellow Urine Appearance Clear Urine pH 6.0 Ur Specific Roach 1.009 L Urine Protein Negative Urine Glucose (UA) Negative Urine Ketones Negative Urine Blood Negative Urine Nitrite Negative Urine Bilirubin Negative Urine Urobilinogen Negative Ur Leukocyte Esterase 2+ H Urine WBC (Auto) 10 Urine RBC (Auto) 1 Ur Epithelial Cells Rare 02/18/18 15:07 RBC 3.34 L MCV 78.7 L MCHC 31.7 L RDW 18.2 H MPV 7.9 Neutrophils % 94.9 H Lymphocytes % 1.7 L D Monocytes % 2.8 L Eosinophils % 0.1 D Basophils % 0.5 - Medications Given in the ED: ED Medications Discontinued Medications Generic Name Dose Route Start Last Admin Trade Name Freq PRN Reason Stop Dose Admin Albuterol/Ipratropium 1 amp 02/18/18 15:30 02/18/18 15:56 Duoneb - NEB 02/18/18 16:16 1 amp Q15M YOEL Administration Methylprednisolone Sodium Succinate 125 mg 02/18/18 15:19 02/18/18 15:23 Solu-Medrol - IVPUSH 02/18/18 15:20 Not Given ONCE ONE <Naty Brewster - Last Filed: 02/18/18 17:39> - LABORATORY CBC & Chemistry Diagram: 02/18/18 15:07 02/18/18 15:07 - ADDITIONAL ORDERS Additional order review: Laboratory Results 02/18/18 02/18/18 15:40 15:07 WBC 12.4 H RBC 3.34 L Hgb 8.3 L Hct 26.3 L MCV 78.7 L MCH 24.9 L D MCHC 31.7 L RDW 18.2 H Plt Count 426 MPV 7.9 Absolute Neuts (auto) 11.8 H Total Counted 100 Neutrophils % 94.9 H Neutrophils % (Manual) 97.0 H* Band Neutrophils % 0.0 Lymphocytes % 1.7 L D Lymphocytes % (Manual) 3.0 L Monocytes % 2.8 L Eosinophils % 0.1 D Basophils % 0.5 Nucleated RBC % 0 Urine Color Ltyellow Urine Appearance Clear Urine pH 6.0 Ur Specific Roach 1.009 L Urine Protein Negative Urine Glucose (UA) Negative Urine Ketones Negative Urine Blood Negative Urine Nitrite Negative Urine Bilirubin Negative Urine Urobilinogen Negative Ur Leukocyte Esterase 2+ H Urine WBC (Auto) 10 Urine RBC (Auto) 1 Ur Epithelial Cells Rare 02/18/18 15:07 RBC 3.34 L MCV 78.7 L MCHC 31.7 L RDW 18.2 H MPV 7.9 Neutrophils % 94.9 H Lymphocytes % 1.7 L D Monocytes % 2.8 L Eosinophils % 0.1 D Basophils % 0.5 - Medications Given in the ED: ED Medications Discontinued Medications Generic Name Dose Route Start Last Admin Trade Name Jane PRN Reason Stop Dose Admin Methylprednisolone Sodium Succinate 125 mg 02/18/18 15:19 02/18/18 15:23 Solu-Medrol - IVPUSH 02/18/18 15:20 Not Given ONCE ONE <Ramya Key - Last Filed: 02/18/18 19:53> Medical Decision Making - Medical Decision Making 02/18/18 17:39 Dr. Espinoza was paged and notified via phone service. <Naty Brewster - Last Filed: 02/18/18 17:39> - Medical Decision Making 02/18/18 16:11 Giuliana Spears is a 72-year-old female, with a significant PMH of asthma, peptic ulcer disease, aortic stenosis, mitral valve prolapse presenting with hypertension x 3 days, a/w nonproductive cough. SBPs in 150s, up to 170s. did receive dexamethasone and duonebs x 2 in the field. No f/c, n/v/d, constipation, urinary sx. No leg swelling. Vital signs with +tachycardia, no fevers, normotensive and normal sats. HR improved with treatments and hydration Diff diagnosis includes asthma exacerbation, pneumonia, pleurisy, pericarditis, myocarditis, URI, viral syndrome, dehydration, bronchitis, electrolyte/ metabolic derangements. labs and lytes remarkable for leukcytosis, changed from prior, with neutrophilic shift. did get large dose of steroids [employer], so possible etiology CXR without focal infiltrate, interstitial markings noted. Influenza swab_negative for both strains IV ceftriaxone and azithromycin for CAP coverage. UA incidentally with +WBCs, leuk esterase, no UTI sx, but ceftriaxone covers. EKG normal sinus rhythm, no interval abnormalities, narrow QRS, ST and T wave segments and morphology normal. Nonspecific T wave abnormalities, PACs present remains comfortable, NAD. on supp O2 for comfort, improved pulm cs with Dr. Ponce, will follow pmd Dr. Garcia, thus admit to hospitalist for further care, respiratory support, nebs and abx, continued supportive care. 02/18/18 19:52 <Ramya Key - Last Filed: 02/18/18 19:53> *DC/Admit/Observation/Transfer - Attestations Scribe Attestion: 02/18/18 17:14 Documentation prepared by Naty Brewster, acting as manager of medical for Ramya Key MD. <Naty Brewster - Last Filed: 02/18/18 17:39> - Discharge Dispostion Decision to Admit order: Yes Decision to Admit order Date/Time: 02/18/18 17:16 Decision to Admit Order Category Date Time Status Decision to Admit to Hospital Routine Admission 02/18/18 17:15 Ordered <Ramya Key - Last Filed: 02/18/18 19:53> Diagnosis at time of Disposition: Asthma exacerbation, Pneumonia - Discharge Dispostion Condition at time of disposition: Guarded
[2018-02-18 16:14] LABS: ALBUMIN 3.6 g/dl (3.4-5.0); ALK PHOS 110 U/L (45-117); ANION GAP 7 MMOL/L (8-16); BILIRUBIN,TOTAL 0.3 mg/dL (0.2-1); BLOOD UREA NITROGEN 23 mg/dL (7-18); CALCIUM 8.8 mg/dL (8.5-10.1); CHLORIDE 105 mmol/L (98-107); CO2 28 mmol/L (21-32); CREATININE 0.9 mg/dL (0.55-1.3); GLUCOSE,RANDOM 116 mg/dL (74-106); N-TERMINAL BNP 2870.3 pg/ml (5-125); POTASSIUM 3.8 mmol/L (3.5-5.1); SGOT/AST 37 U/L (15-37); SGPT/ALT 61 U/L (13-61); SODIUM 140 mmol/L (136-145); TOT PROT 6.6 g/dl (6.4-8.2)
[2018-02-18] MEDS ORDERED: CEFTRIAXONE 1 GM/50 ML BAG ONE (16:41)
--- NOTE | 2018-02-18 17:49 | HP ---
CHIEF COMPLAINT: HTN and SOB PCP: [facility] HISTORY OF PRESENT ILLNESS: 72-year-old female, with a significant PMH of asthma, CHF, COPD, CAD, peptic ulcer disease, aortic stenosis, mitral valve prolapse presenting with hypertension x 3 days, a/w nonproductive cough and wheezing. SBPs in 150s, up to 170s. Patient states she has been using her asthma medications with no relief of her symptoms. she reports productive cough of white and then green sputum , table spoon in amount . No f/c, n/v/d, constipation, denies urinary sx. No leg swelling. ER course was notable for: (1)CBC, CMP (2)DUOneb , ABX (3) CXR Recent Travel:denies PAST MEDICAL HISTORY: HTN, Asthma , COPD, , MVP, PUD , CHF, CAD PAST SURGICAL HISTORY: R eye cataract, Cholecystectomy , Hysterectomy 30 years ago Social History: Smokin PPD as teenage Alcohol:denies Drugs: denies Family History: Mother with HTN and bladder cancer diedt at age 83 . Allergies No Known Allergies Allergy (Verified 02/18/18 13:28) HOME MEDICATIONS: Home Medications Medication Instructions Recorded Albuterol Sulfate Inhaler - 1 - 2 inh PO Q4H 01/23/18 [Ventolin Hfa Inhaler -] Clonidine HCl 0.1 mg PO DAILY 01/23/18 Pantoprazole Sodium [Protonix] 40 mg PO DAILY 01/23/18 Budesonide/Formeterol Fumarate 1 inh PO DAILY 02/18/18 [SYMBICORT 160/4.5mcg -] Verapamil HCl [Verapamil ER] 240 mg PO DAILY 02/18/18 REVIEW OF SYSTEMS SOB, Cough productive , Anxiety , palpitation, PHYSICAL EXAMINATION Vital Signs - 24 hr 02/18/18 13:26 Temperature 98.2 F Pulse Rate 97 H Respiratory 16 Rate Blood Pressure 155/93 O2 Sat by Pulse 100 Oximetry (%) GENERAL: AAOx3 in NAD HEAD: NC/AT EYES: EOMI, Conjunctiva clear, sclera anicteric ENT: moist mucous membrane NECK: Supple, no JVD LUNGS: diffuse B/ inspiratory and expiratory wheezing with poor inspiratory effort , no crackles no accessory muscle use. HEART:Sinus tachy ,, normal s1, s2, murmur no M/R/G ABDOMEN: Soft, ND, NT, +BS 4 Q, no CVA Tenderness LOWER EXTREMITIES: no edema, +2DP pulse, NEUROLOGICAL: No focal deficit. Normal speech. gait not observed. PSYCHIATRIC: Cooperative. Good eye contact. Appropriate mood and affect. SKIN: Warm, dry, Laboratory Results - last 24 hr 02/18/18 02/18/18 02/18/18 15:07 15:07 15:40 WBC 12.4 H RBC 3.34 L Hgb 8.3 L Hct 26.3 L MCV 78.7 L MCH 24.9 L D MCHC 31.7 L RDW 18.2 H Plt Count 426 MPV 7.9 Absolute Neuts (auto) 11.8 H Total Counted 100 Neutrophils % 94.9 H Neutrophils % (Manual) 97.0 H* Band Neutrophils % 0.0 Lymphocytes % 1.7 L D Lymphocytes % (Manual) 3.0 L Monocytes % 2.8 L Eosinophils % 0.1 D Basophils % 0.5 Nucleated RBC % 0 Sodium 140 Potassium 3.8 Chloride 105 Carbon Dioxide 28 Anion Gap 7 L BUN 23 H Creatinine 0.9 Creat Clearance w eGFR > 60 Random Glucose 116 H Calcium 8.8 Total Bilirubin 0.3 AST 37 ALT 61 Alkaline Phosphatase 110 Creatine Kinase 64 Troponin I < 0.02 B-Natriuretic Peptide 2870.3 H Total Protein 6.6 Albumin 3.6 Urine Color Ltyellow Urine Appearance Clear Urine pH 6.0 Ur Specific [place] 1.009 L Urine Protein Negative Urine Glucose (UA) Negative Urine Ketones Negative Urine Blood Negative Urine Nitrite Negative Urine Bilirubin Negative Urine Urobilinogen Negative Ur Leukocyte Esterase 2+ H Urine WBC (Auto) 10 Urine RBC (Auto) 1 Ur Epithelial Cells Rare CBC, BMP 02/18/18 15:07 02/18/18 15:07 ASSESSMENT/PLAN: 72 year old white female with pmhx of COPD/Asthma, , CAD, CHF presented with 3 days history of uncontrolled HTN , SOB and productive cough was admitted to obs for asthma exacerbation. #Acute asthma exacerbation * CXR with no acute pathology * ABG pending * DUO neb scheduled and PRN * ABX ceftriaxone and azithromycin * Solu metrol * Insentive spirometry * daily PEF * repeat lab in Am # HTN * 155/93 , monitor * cotine home meds verapamil #Anemia * recent admission for Upper GI bleed * monitor H/H * transfuse if hgb below 7 #CHF * no signs of exacerbation, stable #/MVP * stable, F/U put pt #FEN * F: oral * E: monitor * N: low sodium diet #Proph * DVTS: Hep SQ #Dispo * Admit to obs Visit type - Emergency Visit Emergency Visit: Yes ED Registration Date: 02/18/18 Care time: The patient presented to the Emergency Department on the above date and was hospitalized for further evaluation of their emergent condition. - New Patient This patient is new to me today: Yes Date on this admission: 02/18/18 - Critical Care Critical Care patient: No
[2018-02-18 17:54] LABS: VENOUS PC02 35.9 mmHg (38-52); VENOUS PH 7.46 (7.32-7.42); VENOUS PO2 55.4 mmHg (28-48)
[2018-02-18] MEDS ORDERED: ALBUTEROL SO4 2.5/IPRATROPIUM 0.5 INH SOL 3 ML VIAL.NEB. NEB PRN (18:33)
--- NOTE | 2018-02-18 18:38 | PN ---
Teaching Attending Note Name of Resident: Tj Sutherland ATTENDING PHYSICIAN STATEMENT I saw and evaluated the patient. I reviewed the resident's note and discussed the case with the resident. I agree with the resident's findings and plan as documented. SUBJECTIVE:72yo F [facility] iwth COPD not on home O2, UGI bleed, CHF, CAD, , MVP and HTN presented to the ER with cough and wheezing. states it started several days ago with productive cough of yellow sputum and for the past 2 days has been non productive. assoc with difficulty breathing and unable to ambulate because of dyspnea. never been hospitalized or had a flare of her COPD in the past. Unclear if she has had formal PFT testing in the past. states her grandchild is currently sick with similar symptoms. they do not go to school or daycare. denies CP, Fever, chills, N/V/C/D, dysuria, urinary frequency only recent change to her medications was verapamil dose was increased. claims compliance to inhalers and medications. OBJECTIVE: Last Vital Signs Temp Pulse Resp BP Pulse Ox 98.2 F 92 H 24 H 132/71 94 L 02/18/18 13:26 02/18/18 16:45 02/18/18 16:45 02/18/18 16:45 02/18/18 18:14 General NAD CV S1 S2 RRR + murmur no rub/gallop Lungs diffuse wheezing, decreased breath sounds. poor inspiratory effort abdomen soft NT/ND no suprapubic tenderness/pain extremities no pedal edema ASSESSMENT AND PLAN: 72yo F [facility] iwth COPD not on home O2, UGI bleed, CHF, CAD, , MVP and HTN presented to the ER with cough and wheezing and was admitted for acute COPD exacerbation 1. Acute COPD exacerbation-medicine admission. saturating 96% on RA. will start solumedrol 40mg Q6H, azithromycin, ceftriaoxone, nebs RTC and prn. cont inhlaers. pulmonary consulted. will need formal PFT outpatient. Flu swab negative 2. +UA- is not symptomatic. does not require treatment 3. Anemia- Hgb stable from previous admission. check iron studies. no indication for transfusion. 4. UGI bleed- due to gastric ulcers. cont PPI while on steroids 5. CHF- no signs of volume overload. not on lasix 6. 7. MVP 8. HTN- controlled. cont home medications 9. DVT ppx- lovenox
--- NOTE | 2018-02-18 20:10 | PN ---
Progress Note (short form) - Note Progress Note: PULMONARY 'CONSULTATION DICTATED 02/18/18 IMP ACUTE RESPIRATORY DISTRESS ACUTE ASTHMA/COPD EXACERBATION LIKELY SECONDARY TO URI AORTIC STENOSIS HTN CHF ASHD PLAN IV STEROIDS INHALED BRONCHODILATORS SUPPLEMENTAL O2 ABX SPUTUM C+S ECHO DAILY PEAK FLOW DR WHALEN Problem List - Problems (1) Asthma exacerbation Code(s): J45.901 - UNSPECIFIED ASTHMA WITH (ACUTE) EXACERBATION (2) Aortic stenosis Code(s): I35.0 - NONRHEUMATIC AORTIC (VALVE) STENOSIS (3) H/O: GI bleed Code(s): Z87.19 - PERSONAL HISTORY OF OTHER DISEASES OF THE DIGESTIVE SYSTEM (4) MVP (mitral valve prolapse) Code(s): I34.1 - NONRHEUMATIC MITRAL (VALVE) PROLAPSE (5) Asthma-COPD overlap syndrome Code(s): J44.9 - CHRONIC OBSTRUCTIVE PULMONARY DISEASE, UNSPECIFIED
--- NOTE | 2018-02-18 20:32 | CONS ---
DATE OF CONSULTATION: 02/18/2018 PULMONARY CONSULTATION REFERRING PHYSICIAN: Dr. Key HISTORY OF PRESENT ILLNESS: The patient is a 72-year-old female known to me from previous office visits with past medical history of chronic asthma,copd. congestive heart failure, ASHD, peptic ulcer disease, aortic stenosis, mitral valve prolapse, as well as hypertension, admitted to [facility] with increasing shortness of breath, cough, bronchospasm, and systolic blood pressures between 150 and 170s. Patient states she recently had been having some URI symptoms. She has been using her asthma inhalers without any significant improvement, at which time she presented to the emergency room. In the ER she is noted to have increased moderate respiratory distress. She was treated with inhaled bronchodilators and steroids with some clinical improvement. She denies any chest pain, palpitations. She denies any nausea, vomiting, or diaphoresis. Denies hemoptysis. She has h/o smoking quit 30yrs ago. There is no history of occupational exposures to chemicals or fumes. She is born in the [place] and moved to the [place] greater than 30 years ago. PAST MEDICAL HISTORY: Again includes asthma, hypertension, CHF, ASHD, peptic ulcer disease, and aortic stenosis, mitral valve prolapse. REVIEW OF SYSTEMS: Positive shortness of breath. Positive cough. Positive wheezing. No fever, no chills, no hemoptysis, no chest pain, no palpitations, no abdominal pain. MEDICATION: Prior to admission include albuterol, clonidine, pantoprazole, Symbicort 160/4.5, and verapamil. CURRENT MEDICATIONS: Include Symbicort 160/4.5, Solu-Medrol 40 q.6, Zithromax, ceftriaxone, Lovenox, DuoNeb, Calan, Catapres, and pantoprazole. PHYSICAL EXAMINATION: GENERAL: The patient is an elderly female, awake and alert, mildly dyspneic but in no acute distress. VITAL SIGNS: She is currently afebrile. Blood pressure is 132/71, respiratory rate 24, and O2 saturation is 94% on 2 L. HEENT: Normocephalic, atraumatic. NECK: Supple. HEART: Regular S1, S2. CHEST: Diffuse bilateral wheezes. ABDOMEN: Soft, bowel sounds positive. EXTREMITIES: No cyanosis, edema. LABORATORY: WBC 12.4, hemoglobin 8.3, hematocrit 26.3, with a platelet count of 426,000. There are 97 polys and lymphs 3 and 2 monocytes. BNP is 2870. BUN 23 , creatinine 0.9. Chest x-ray reveals mildly cardiomegaly, increased interstitial markings bilaterally. IMPRESSION: 1. Acute respiratory distress secondary to acute asthma,copd exacerbation probably secondary to upper respiratory infection. 2. Possible mild congestive heart failure as noted by mild elevated BNP. 3. Aortic stenosis. 4. Hypertension. PLAN: Continue IV steroids and inhaled bronchodilators. Supplemental O2. Follow up chest x-ray. Monitor peak flow. Echocardiogram. Monitor blood pressure. YO WHALEN M.D. [id number] MTDD
[2018-02-18] MEDS ORDERED: methylPREDNISolone NA SUCC 40 MG/1 ML VIAL ONE (21:04)
[2018-02-18] MEDS: methylPREDNISolone NA SUCC 40 MG/1 ML VIAL IVPUSH SCH (21:18)
[2018-02-18] MEDS ORDERED: methylPREDNISolone NA SUCC 40 MG/1 ML VIAL IVPUSH SCH (22:00)
[2018-02-19] MEDS: methylPREDNISolone NA SUCC 40 MG/1 ML VIAL IVPUSH SCH ×4 (03:09→20:55)
[2018-02-19] MEDS ORDERED: methylPREDNISolone NA SUCC 40 MG/1 ML VIAL ONE (03:11)
[2018-02-19 06:52] LABS: HEMATOCRIT 25.2 % (32.4-45.2); HEMOGLOBIN 7.9 GM/dL (10.7-15.3); LYMPH % 3.2 % (8-40); MCH 24.7 pg (25.7-33.7); MCHC 31.4 g/dl (32.0-36.0); MEAN CELL VOLUME 78.8 fl (80-96); MEAN PLT VOLUME 8.2 fl (7.5-11.1); MONO % 1.3 % (3.8-10.2); NEUT % 95.5 % (42.8-82.8); PLATELET COUNT 353 K/MM3 (134-434); RBC 3.19 M/mm3 (3.60-5.2); RDW 18.6 % (11.6-15.6); WHITE BLOOD COUNT 4.8 K/mm3 (4.0-10.0)
[2018-02-19 07:31] LABS: ANION GAP 6 MMOL/L (8-16); BLOOD UREA NITROGEN 23 mg/dL (7-18); CALCIUM 8.5 mg/dL (8.5-10.1); CHLORIDE 108 mmol/L (98-107); CO2 27 mmol/L (21-32); CREATININE 0.9 mg/dL (0.55-1.3); GLUCOSE,RANDOM 148 mg/dL (74-106); MAGNESIUM 2.3 mg/dL (1.8-2.4); N-TERMINAL BNP 2721.8 pg/ml (5-125); PHOSPHOROUS 3.8 mg/dL (2.5-4.9); POTASSIUM 4.2 mmol/L (3.5-5.1); SODIUM 141 mmol/L (136-145)
[2018-02-19] MEDS: ALBUTEROL SO4 2.5/IPRATROPIUM 0.5 INH SOL 3 ML VIAL.NEB. NEB SCH ×4 (08:15→20:25)
[2018-02-19 09:35] LABS: ANISOCYTOSIS 1+; MACROCYTOSIS 0; PLATELET ESTIMATE NORMAL
[2018-02-19] MEDS ORDERED: CEFTRIAXONE 1 GM in DEXTROSE 5%-WATER - 50 ML IVPB ONE (10:00)
[2018-02-19] MEDS ORDERED: BUDESONIDE/FORMETEROL FUMARATE 160/4.5 mcg INHALER IH SCH (10:00)
[2018-02-19] MEDS ORDERED: VERAPAMIL HCL 240 MG PO SCH (10:00)
--- NOTE | 2018-02-19 10:25 | EKG ---
Test Reason : Blood Pressure : / mmHG Vent. Rate : 088 BPM Atrial Rate : 088 BPM P-R Int : 130 ms QRS Dur : 082 ms QT Int : 394 ms P-R-T Axes : 047 030 008 degrees QTc Int : 476 ms SINUS RHYTHM WITH PREMATURE ATRIAL COMPLEXES OTHERWISE NORMAL ECG WHEN COMPARED WITH ECG OF 23-JAN-2018 12:17, INCOMPLETE RIGHT BUNDLE BRANCH BLOCK IS NO LONGER PRESENT Confirmed by CHOLO ZAVALA, STEPHANIE ([id number]) on 02/19/2018 10:24:24 AM Referred By: Confirmed By:STEPHANIE EMMANUEL MD
--- NOTE | 2018-02-19 10:36 | PN ---
Progress Note, Physician History of Present Illness: PULMONARY ALERT,STILL CONGESTED,+ COUGH,MINIMAL IMPROVEMENT - Current Medication List Current Medications: Active Medications Albuterol/Ipratropium (Duoneb -) 1 amp NEB RQID [facility] Last Admin: 02/18/18 21:19 Dose: Not Given Albuterol/Ipratropium (Duoneb -) 1 amp NEB Q6H PRN PRN Reason: SHORT OF BREATH/WHEEZING Azithromycin (Azithromycin) 500 mg PO DAILY [facility] Stop: 02/21/18 10:01 Budesonide/Formoterol Fumarate (Symbicort 160/4.5mcg -) 2 puff IH BID [facility] Clonidine (Catapres -) 0.1 mg PO DAILY [facility] Enoxaparin Sodium (Lovenox -) 30 mg SQ DAILY [facility] Methylprednisolone Sodium Succinate (Solu-Medrol -) 40 mg IVPUSH Q6H-IV [facility] Last Admin: 02/19/18 03:09 Dose: 40 mg Pantoprazole Sodium (Protonix -) 40 mg PO DAILY [facility] Verapamil HCl (Calan Sr -) 240 mg PO DAILY [facility] - Objective Vital Signs: Vital Signs Temperature 97.8 F 02/19/18 04:52 Pulse Rate 82 02/19/18 04:52 Respiratory Rate 18 02/19/18 04:52 Blood Pressure 146/83 02/19/18 04:52 O2 Sat by Pulse Oximetry (%) 98 02/18/18 21:17 Constitutional: Yes: Well Nourished, Calm Eyes: Yes: WNL HENT: Yes: WNL Neck: Yes: WNL Cardiovascular: Yes: Regular Rate and Rhythm, S1, S2 Respiratory: Yes: Wheezes (BILATERAL WHEEZES) Gastrointestinal: Yes: Normal Bowel Sounds, Soft Extremities: Yes: WNL Edema: No Labs: CBC, BMP 02/19/18 06:00 02/19/18 06:00 Problem List - Problems (1) Asthma exacerbation Code(s): J45.901 - UNSPECIFIED ASTHMA WITH (ACUTE) EXACERBATION (2) Aortic stenosis Code(s): I35.0 - NONRHEUMATIC AORTIC (VALVE) STENOSIS (3) H/O: GI bleed Code(s): Z87.19 - PERSONAL HISTORY OF OTHER DISEASES OF THE DIGESTIVE SYSTEM (4) MVP (mitral valve prolapse) Code(s): I34.1 - NONRHEUMATIC MITRAL (VALVE) PROLAPSE (5) Asthma-COPD overlap syndrome Code(s): J44.9 - CHRONIC OBSTRUCTIVE PULMONARY DISEASE, UNSPECIFIED Assessment/Plan IMP ACUTE RESPIRATORY DISTRESS ACUTE ASTHMA/COPD EXACERBATION LIKELY SECONDARY TO URI AORTIC STENOSIS HTN CHF ASHD PLAN IV STEROIDS INCREASE TO [id number] INHALED BRONCHODILATORS SUPPLEMENTAL O2 ABX SPUTUM C+S ECHO DAILY PEAK FLOW DR WHALEN Problem List - Problems (1) Asthma exacerbation Code(s): J45.901 - UNSPECIFIED ASTHMA WITH (ACUTE) EXACERBATION (2) Aortic stenosis Code(s): I35.0 - NONRHEUMATIC AORTIC (VALVE) STENOSIS (3) H/O: GI bleed Code(s): Z87.19 - PERSONAL HISTORY OF OTHER DISEASES OF THE DIGESTIVE SYSTEM (4) MVP (mitral valve prolapse) Code(s): I34.1 - NONRHEUMATIC MITRAL (VALVE) PROLAPSE (5) Asthma-COPD overlap syndrome Code(s): J44.9 - CHRONIC OBSTRUCTIVE PULMONARY DISEASE, UNSPECIFIED
[2018-02-19] MEDS: VERAPAMIL HCL 240 MG E.R. TABLET (FP) PO SCH (10:39)
[2018-02-19] MEDS: AZITHROMYCIN 500 MG TABLET PO SCH (10:39)
[2018-02-19] MEDS: ENOXAPARIN NA (PORCINE) 30 MG/0.3 ML DISP.SYRIN SQ SCH (10:40)
[2018-02-19] MEDS: cloNIDine HCL 0.1 MG TABLET PO SCH (10:40)
[2018-02-19] MEDS: PANTOPRAZOLE 40 MG TABLET (FP) PO SCH (10:40)
[2018-02-19] MEDS: BUDESONIDE/FORMETEROL FUMARATE 160/4.5 mcg INHALER IH SCH ×2 (13:12→21:02)
[2018-02-19 16:31] VITALS: BMI 27.7
--- NOTE | 2018-02-19 17:00 | PN ---
Teaching Attending Note Name of Resident: Neal Salomon ATTENDING PHYSICIAN STATEMENT I saw and evaluated the patient. I reviewed the resident's note and discussed the case with the resident. I agree with the resident's findings and plan as documented. SUBJECTIVE:states breathing at rest is improved. can not take more than several steps due to dyspnea. cough resolved. denies CP, fever, chills, N/V/c/D OBJECTIVE: Last Vital Signs Temp Pulse Resp BP Pulse Ox 98.0 F 111 H 18 133/77 99 02/19/18 15:20 02/19/18 15:20 02/19/18 15:20 02/19/18 15:20 02/19/18 16:36 General NAD Lungs diffuse wheezing, decreased breath sounds. improved inspiratory effort ASSESSMENT AND PLAN: 72yo F wtih PMH iwth COPD not on home O2, UGI bleed, CHF, CAD, , MVP and HTN presented to the ER with cough and wheezing and was admitted for acute COPD exacerbation 1. Acute COPD exacerbation-minimal improvement since yesterday. saturating 99% on 2L NC. cont medrol same dose. azithro and ceftriaxone day 2. nebs and inhlaers. pulmonary consulted. will need formal PFT outpatient. Flu swab negative 2. +UA- is not symptomatic. does not require treatment 3. Anemia- Hgb stable from previous admission. check iron studies. no indication for transfusion. 4. UGI bleed- due to gastric ulcers. cont PPI while on steroids 5. CHF- no signs of volume overload. not on lasix 6. 7. MVP 8. HTN- controlled. cont home medications 9. DVT ppx- lovenox
--- NOTE | 2018-02-19 21:02 | PN ---
Physical Exam: SUBJECTIVE: Patient seen and examined at bedside. Endorses SOB has improved at rest. Becomes short of breath when mobile. Denies cough, chest pain, fever, or chills. OBJECTIVE: Vital Signs Period Temp Pulse Resp BP Sys/[place] Pulse Ox Last 24 Hr 97.8 F-98.8 F 82-115 18-20 126-170/77-83 98-99 GENERAL: AAOx3, NAD HEAD: NC/AT EYES: perrla, eomi ENT: MMM NECK: Trachea midline, full range of motion, supple. LUNGS: B/L expiratory wheezing HEART: RRR no MRG S1S2 ABDOMEN: ND NT No HSM EXTREMITIES: No CCE NEUROLOGICAL: Cn 2-12 intact PSYCH: Normal mood, normal affect. SKIN: No rashes or lesions appreciated Laboratory Results - last 24 hr 02/19/18 02/19/18 06:00 06:00 WBC 4.8 RBC 3.19 L Hgb 7.9 L Hct 25.2 L MCV 78.8 L MCH 24.7 L MCHC 31.4 L RDW 18.6 H Plt Count 353 MPV 8.2 Absolute Neuts (auto) 4.6 Neutrophils % 95.5 H Neutrophils % (Manual) 96.0 H Band Neutrophils % 0.0 Lymphocytes % 3.2 L D Lymphocytes % (Manual) 3.0 L Monocytes % 1.3 L Monocytes % (Manual) 1 L Eosinophils % 0.0 D Eosinophils % (Manual) 0.0 Basophils % 0.0 Basophils % (Manual) 0.0 Myelocytes % (Man) 0 Promyelocytes % (Man) 0 Blast Cells % (Manual) 0 Nucleated RBC % 0 Metamyelocytes 0 Hypochromia 1+ Platelet Estimate Normal Polychromasia 1+ Poikilocytosis 0 Anisocytosis 1+ Microcytosis 1+ Macrocytosis 0 Sodium 141 Potassium 4.2 Chloride 108 H Carbon Dioxide 27 Anion Gap 6 L BUN 23 H Creatinine 0.9 Creat Clearance w eGFR > 60 Random Glucose 148 H Calcium 8.5 Phosphorus 3.8 Magnesium 2.3 B-Natriuretic Peptide 2721.8 H Active Medications Generic Name Dose Route Start Last Admin Trade Name Freq PRN Reason Stop Dose Admin Albuterol/Ipratropium 1 amp 02/18/18 20:00 02/19/18 15:20 Duoneb - NEB 1 amp RQID [facility] Administration Albuterol/Ipratropium 1 amp 02/18/18 18:33 Duoneb - NEB Q6H PRN SHORT OF BREATH/WHEEZING Azithromycin 500 mg 02/19/18 10:00 02/19/18 10:39 Azithromycin PO 02/21/18 10:01 500 mg DAILY [facility] Administration Budesonide/Formoterol Fumarate 2 puff 02/19/18 10:00 02/19/18 13:12 Symbicort 160/4.5mcg - IH 2 puff BID [facility] Administration Clonidine 0.1 mg 02/19/18 10:00 02/19/18 10:40 Catapres - PO 0.1 mg DAILY [facility] Administration Enoxaparin Sodium 30 mg 02/19/18 10:00 02/19/18 10:40 Lovenox - SQ 30 mg DAILY [facility] Administration Methylprednisolone Sodium Succinate 40 mg 02/18/18 19:15 02/19/18 15:11 Solu-Medrol - IVPUSH 40 mg Q6H-IV YOEL Administration Pantoprazole Sodium 40 mg 02/19/18 10:00 02/19/18 10:40 Protonix - PO 40 mg DAILY [facility] Administration Verapamil HCl 240 mg 02/19/18 10:00 02/19/18 10:39 Calan Sr - PO 240 mg DAILY [facility] Administration ASSESSMENT/PLAN: 72 y/o lady with PMH of COPD not on home O2, UGI bleed, CHF, CAD, , MVP and HTN presented to the ER with cough and wheezing and was admitted for acute COPD exacerbation #Acute asthma exacerbation * CXR with no acute pathology * ABG --> VBG ph 7.46, VBG pco2 35.9, VBG po2 55.4, mixed vbg hco3 25.2 * Duoneb scheduled and PRN * Azithromycin 500 mg po daily, Rocephin 1 gm today * Solu metrol 40 mg ivpush q6h * Incentive spirometry * Pulmonology, Dr Ponce, on board. recommends following---> Daily peak flow, Sputum cultures/Sensitivity, Echo # HTN * SBP up to 170's in ED * Continue home Verapamil #Anemia * recent admission for Upper GI bleed * monitor H/H * transfuse if hgb below 7 #CHF * no signs of exacerbation, stable #Aortic Stenosis/MVP -Continue to follow. Echo pending #FEN No Fluids Monitor Electrolytes Sodium Controlled Diet #Proph Hep SQ TID #Dispo * Admit to obs Visit type - Emergency Visit Emergency Visit: Yes ED Registration Date: 02/18/18 Care time: The patient presented to the Emergency Department on the above date and was hospitalized for further evaluation of their emergent condition. - New Patient This patient is new to me today: Yes Date on this admission: 02/19/18 - Critical Care Critical Care patient: No - Discharge Referral Referred to [facility] Med P.C.: No
[2018-02-20] MEDS: methylPREDNISolone NA SUCC 40 MG/1 ML VIAL IVPUSH SCH ×3 (02:04→18:32)
[2018-02-20 07:02] LABS: HEMATOCRIT 26.1 % (32.4-45.2); HEMOGLOBIN 8.3 GM/dL (10.7-15.3); MCHC 31.7 g/dl (32.0-36.0); MEAN PLT VOLUME 8.5 fl (7.5-11.1); PLATELET COUNT 367 K/MM3 (134-434); RBC 3.31 M/mm3 (3.60-5.2); RDW 18.6 % (11.6-15.6)
[2018-02-20 07:40] LABS: ANION GAP 11 MMOL/L (8-16); BLOOD UREA NITROGEN 30 mg/dL (7-18); CALCIUM 8.4 mg/dL (8.5-10.1); CHLORIDE 109 mmol/L (98-107); CO2 24 mmol/L (21-32); CREATININE 0.9 mg/dL (0.55-1.3); GLUCOSE,RANDOM 148 mg/dL (74-106); POTASSIUM 4.2 mmol/L (3.5-5.1); SODIUM 144 mmol/L (136-145)
[2018-02-20] MEDS: ALBUTEROL SO4 2.5/IPRATROPIUM 0.5 INH SOL 3 ML VIAL.NEB. NEB SCH ×4 (07:42→20:54)
[2018-02-20] MEDS ORDERED: PT OWN MED DRAWER 7, Y5N ONE (08:41)
[2018-02-20] MEDS: ENOXAPARIN NA (PORCINE) 30 MG/0.3 ML DISP.SYRIN SQ SCH (10:16)
[2018-02-20] MEDS: cloNIDine HCL 0.1 MG TABLET PO SCH (10:17)
[2018-02-20] MEDS: PANTOPRAZOLE 40 MG TABLET (FP) PO SCH (10:17)
[2018-02-20] MEDS: AZITHROMYCIN 500 MG TABLET PO SCH (10:18)
[2018-02-20] MEDS: VERAPAMIL HCL 240 MG E.R. TABLET (FP) PO SCH (10:18)
[2018-02-20] MEDS: BUDESONIDE/FORMETEROL FUMARATE 160/4.5 mcg INHALER IH SCH ×2 (10:19→22:30)
--- NOTE | 2018-02-20 11:00 | PN ---
Progress Note (short form) - Note Progress Note: PULMONARY States breathing slightly improved but still with cough and wheezing. +dyspneic with exertion. Vital Signs Period Temp Pulse Resp BP Sys/[place] Pulse Ox Last 24 Hr 97.8 F-98.8 F 88-111 18-20 126-140/77-93 98-99 Intake & Output 02/17/18 02/18/18 02/19/18 02/20/18 23:59 23:59 23:59 23:59 Intake Total 200 100 Balance 200 100 Weight 57.153 kg 58.196 kg 57.833 kg Gen: mildly tachypneic with speaking Heart: RRR Lung: bilateral rhonchi, wheezes Abd: soft, nontender Ext: no edema CBC, BMP 02/20/18 05:30 02/20/18 05:30 Active Medications Albuterol/Ipratropium (Duoneb -) 1 amp NEB RQID [facility] Last Admin: 02/20/18 07:42 Dose: 1 amp Albuterol/Ipratropium (Duoneb -) 1 amp NEB Q6H PRN PRN Reason: SHORT OF BREATH/WHEEZING Azithromycin (Azithromycin) 500 mg PO DAILY [facility] Stop: 02/21/18 10:01 Last Admin: 02/20/18 10:18 Dose: 500 mg Budesonide/Formoterol Fumarate (Symbicort 160/4.5mcg -) 2 puff IH BID [facility] Last Admin: 02/20/18 10:19 Dose: 2 puff Clonidine (Catapres -) 0.1 mg PO DAILY [facility] Last Admin: 02/20/18 10:17 Dose: 0.1 mg Enoxaparin Sodium (Lovenox -) 30 mg SQ DAILY [facility] Last Admin: 02/20/18 10:16 Dose: 30 mg Methylprednisolone Sodium Succinate (Solu-Medrol -) 40 mg IVPUSH Q6H-IV [facility] Last Admin: 02/20/18 10:16 Dose: 40 mg Pantoprazole Sodium (Protonix -) 40 mg PO DAILY [facility] Last Admin: 02/20/18 10:17 Dose: 40 mg Verapamil HCl (Calan Sr -) 240 mg PO DAILY [facility] Last Admin: 02/20/18 10:18 Dose: 240 mg A/P Acute Asthma Exacerbation Aortic Stenosis CAD CHF HTN - will change medrol to 60mg q8h - inhaled bronchodilators standing and PRN - monitor peak flow - on empiric antibiotics - O2 to keep SpO2 >90% - DVT prophylaxis
[2018-02-20] MEDS ORDERED: ALBUTEROL SO4 0.083% IH SOL 2.5 MG/3 ML VIAL.NEB. NEB PRN (11:01)
--- NOTE | 2018-02-20 11:44 | PN ---
Teaching Attending Note Name of Resident: Neal Salomon ATTENDING PHYSICIAN STATEMENT I saw and evaluated the patient. I reviewed the resident's note and discussed the case with the resident. I agree with the resident's findings and plan as documented. SUBJECTIVE:breathing is improved. some dyspnea on exertion but better than yesterday. denies CP, SOB, fever, chills, N/V/C/D OBJECTIVE: Last Vital Signs Temp Pulse Resp BP Pulse Ox 97.8 F 104 H 20 140/93 98 02/20/18 04:00 02/20/18 04:00 02/20/18 04:00 02/20/18 04:00 02/19/18 22:00 General NAD Lungs diffuse wheezing, decreased breath sounds. improved inspiratory effort ASSESSMENT AND PLAN: 72yo F wtih PMH iwth COPD not on home O2, UGI bleed, CHF, CAD, , MVP and HTN presented to the ER with cough and wheezing and was admitted for acute COPD exacerbation 1. Acute COPD exacerbation-clinically feels better. will reduce medrol to Q8H dosing. on azithro and ceftriaxone day 3. nebs and inhlaers. pulmonary consulted. will need formal PFT outpatient. Flu swab negative 2. +UA- is not symptomatic. does not require treatment 3. Anemia- Hgb stable from previous admission. iron studies pending. no indication for transfusion. 4. UGI bleed- due to gastric ulcers. cont PPI while on steroids 5. CHF- no signs of volume overload. not on lasix 6. 7. MVP 8. HTN- controlled. cont home medications 9. DVT ppx- lovenox
--- NOTE | 2018-02-20 12:42 | ECHO ---
Name: CHARISSE PATRICK Exam:Adult Echocardiogram Study Date: 02/20/2018 08:40 AM Age: 72 yrs Reason For Study: SOB Height: 57 in Weight: 126 lb BSA: 1.5 m2 MMode/2D Measurements & Calculations IVSd: 0.98 cm Ao root diam: 2.3 cm LVIDd: 3.0 cm LA dimension: 4.4 cm LVIDs: 2.2 cm LVPWd: 1.2 cm EDV(Teich): 35.4 ml LVOT diam: 1.8 cm ESV(Teich): 15.3 ml Doppler Measurements & Calculations Ao V2 max: 317.0 cm/sec MVA(VTI): 1.3 cm2 Ao max P.8 mmHg MV V2 max: 250.4 cm/sec Ao V2 mean: 279.4 cm/sec MV max P.3 mmHg Ao mean P.0 mmHg MV V2 mean: 184.0 cm/sec Ao V2 VTI: 73.4 cm MV mean P.7 mmHg MV V2 VTI: 47.9 cm ANDREA(I,D): 0.84 cm2 ANDREA(V,D): 0.94 cm2 LV V1 max P.6 mmHg MR max brenton: 603.8 cm/sec LV V1 mean P.0 mmHg MR max P.8 mmHg LV V1 max: 118.0 cm/sec LV V1 mean: 85.2 cm/sec LV V1 VTI: 24.6 cm SV(LVOT): 61.9 ml TR max brenton: 379.1 cm/sec TR max P.7 mmHg Med Peak E' Brenton: 5.8 cm/sec Lat Peak E' Brenton: 10.0 cm/sec Procedure A complete two-dimensional transthoracic echocardiogram was performed (2D, M-mode, Doppler and color flow Doppler). Left Ventricle The left ventricular size, thickness and function are normal. The left ventricular ejection fraction is normal. Ejection Fraction = 65-70%. The left ventricular wall motion is normal. Right Ventricle The right ventricle is normal in size and function. Atria The left atrium is moderately dilated. The right atrium is mildly dilated. Mitral Valve There is mild mitral annular calcification. There is moderate mitral regurgitation. Tricuspid Valve There is moderate to severe tricuspid regurgitation. There is moderate pulmonary hypertension. Aortic Valve Moderate valvular aortic stenosis. No aortic regurgitation is present. Pulmonic Valve There is no pulmonic valvular regurgitation. Great Vessels The aortic root is normal size. Pericardium/Pleura There is no pericardial effusion. Interpretation Summary The left ventricular size, thickness and function are normal The right ventricle is normal in size and function. The left atrium is moderately dilated. The right atrium is mildly dilated. There is moderate mitral regurgitation. There is moderate to severe tricuspid regurgitation. There is moderate pulmonary hypertension. Moderate valvular aortic stenosis. MD Moe Serrano 02/20/2018 12:41 PM
--- NOTE | 2018-02-20 15:30 | PN ---
Physical Exam: SUBJECTIVE: Patient seen and examined at bedside. Endorses wheezing and sob when mobile. No acute evnts overnight. Denies chest pain, fever, or chills. OBJECTIVE: Vital Signs Period Temp Pulse Resp BP Sys/[place] Pulse Ox Last 24 Hr 97.8 F-98.8 F 88-104 20-20 126-140/70-93 98-99 GENERAL: AAOx3, NAD HEAD: NC/AT EYES: EOMI, PERRLA ENT: MMM NECK: Trachea midline, full range of motion, supple. LUNGS: Expiratory wheezing HEART: RRR No MRG S1S2 ABDOMEN: NT ND No HSM EXTREMITIES:No CCE NEUROLOGICAL: CN 2-12 intact PSYCH: Normal mood, normal affect. SKIN: Warm, dry, normal turgor, no rashes or lesions noted Laboratory Results - last 24 hr 02/20/18 02/20/18 02/20/18 05:30 05:30 05:30 WBC 7.0 RBC 3.31 L Hgb 8.3 L Hct 26.1 L MCV 79.0 L MCH 25.0 L MCHC 31.7 L RDW 18.6 H Plt Count 367 MPV 8.5 Sodium 144 Cancelled Potassium 4.2 Cancelled Chloride 109 H Cancelled Carbon Dioxide 24 Cancelled Anion Gap 11 Cancelled BUN 30 H Cancelled Creatinine 0.9 Cancelled Creat Clearance w eGFR > 60 Cancelled Random Glucose 148 H Cancelled Calcium 8.4 L Cancelled Ferritin 24.1 Active Medications Current Medications Albuterol Sulfate (Ventolin 0.083% Nebulizer Soln -) 1 amp NEB Q4H PRN PRN Reason: SHORT OF BREATH/WHEEZING Albuterol/Ipratropium (Duoneb -) 1 amp NEB RQID [facility] Last Admin: 02/20/18 16:41 Dose: 1 amp Azithromycin (Azithromycin) 500 mg PO DAILY [facility] Stop: 02/21/18 10:01 Last Admin: 02/20/18 10:18 Dose: 500 mg Budesonide/Formoterol Fumarate (Symbicort 160/4.5mcg -) 2 puff IH BID [facility] Last Admin: 02/20/18 10:19 Dose: 2 puff Clonidine (Catapres -) 0.1 mg PO DAILY [facility] Last Admin: 02/20/18 10:17 Dose: 0.1 mg Enoxaparin Sodium (Lovenox -) 30 mg SQ DAILY [facility] Last Admin: 02/20/18 10:16 Dose: 30 mg Methylprednisolone Sodium Succinate (Solu-Medrol -) 60 mg IVPUSH Q8H-IV [facility] Pantoprazole Sodium (Protonix -) 40 mg PO DAILY [facility] Last Admin: 02/20/18 10:17 Dose: 40 mg Verapamil HCl (Calan Sr -) 240 mg PO DAILY [facility] Last Admin: 02/20/18 10:18 Dose: 240 mg Home Medications Medication Instructions Recorded Albuterol Sulfate Inhaler - 1 - 2 inh PO Q4H 01/23/18 [Ventolin Hfa Inhaler -] Clonidine HCl 0.1 mg PO DAILY 01/23/18 Pantoprazole Sodium [Protonix] 40 mg PO DAILY 01/23/18 Budesonide/Formeterol Fumarate 1 inh PO DAILY 02/18/18 [SYMBICORT 160/4.5mcg -] Verapamil HCl [Verapamil ER] 240 mg PO DAILY 02/18/18 ASSESSMENT/PLAN: 72 y/o lady with PMH of COPD not on home O2, UGI bleed, CHF, CAD, , MVP and HTN presented to the ER with cough and wheezing and was admitted for acute COPD exacerbation #Acute asthma exacerbation * CXR with no acute pathology * ABG 02/18 --> VBG ph 7.46, VBG pco2 35.9, VBG po2 55.4, mixed vbg hco3 25.2 * Duoneb scheduled and PRN * Azithromycin 500 mg po Rocephin day 3 * Reduce medrol to Q8H dosing * Incentive spirometry * Pulmonology, Dr Ponce, on board. recommends following---> Daily peak flow, Sputum cultures/Sensitivity, Echo # HTN * SBP up to 170's in ED * Continue home Verapamil #Anemia * recent admission for Upper GI bleed * monitor H/H * transfuse if hgb below 7 #CHF * no signs of exacerbation, stable #Aortic Stenosis/MVP Echo 02/20--> Mild dilation R atrium, L atrium moderately dilated, moderate mitral regurg, moderate to severe tricuspid regurg, moderate pulmonary hypertension, moderate valvular aortic stenosis. #FEN No Fluids Monitor Electrolytes Sodium Controlled Diet #Proph Hep SQ TID #Dispo * Admit to obs Visit type - Emergency Visit Emergency Visit: Yes ED Registration Date: 02/20/18 Care time: The patient presented to the Emergency Department on the above date and was hospitalized for further evaluation of their emergent condition. - New Patient This patient is new to me today: No - Critical Care Critical Care patient: No - Discharge Referral Referred to [facility] Med P.C.: No
[2018-02-21] MEDS: methylPREDNISolone NA SUCC 40 MG/1 ML VIAL IVPUSH SCH ×3 (01:16→17:07)
--- NOTE | 2018-02-21 03:27 | HOSP ---
Subjective - Review of Symptoms Events since last encounter: Was paged by nurse for concern of tachycardia to 122 bpm. STAT EKG ordered showing probable new onset Afib when compared to prior EKG from 02/18/2018. Patient admits slight palpitations. Denies chest pain, shortness of breath, abdominal pain, nausea, vomiting, diarrhea, constipation. Cardiovascular: Yes: Palpitations Physical Examination Vital Signs: Vital Signs Temperature 98.2 F 02/21/18 01:00 Pulse Rate 122 H 02/21/18 01:00 Respiratory Rate 24 H 02/21/18 02:00 Blood Pressure 149/76 02/21/18 01:00 O2 Sat by Pulse Oximetry (%) 98 02/21/18 02:00 Constitutional: Yes: No Distress Eyes: Yes: Conjunctiva Clear, EOM Intact HENT: Yes: Atraumatic, Normocephalic Neck: Yes: Supple Cardiovascular: Yes: Pulse Irregular, Murmur (holosystolic, without radiation to carotids b/l), S1, S2 Respiratory: Yes: CTA Bilaterally Gastrointestinal: Yes: Normal Bowel Sounds, Soft, Abdomen, Obese Peripheral Pulses: Left Radial: 2+, Right Radial: 2+, Left Doralis Pedis: 2+, Right Dorsalis Pedis: 2+ Labs: CBC, BMP 02/20/18 05:30 02/20/18 05:30 Hospitalist Encounter Assessment: Assessment: Patient is a 72 year old female with history of COPD, hypertension, mitral valve prolapse, congestive heart failure, coronary artery disease, aortic stenosis, admitted for COPD exacerbation. Possible new onset Afib noted on EKG done today, not seen on prior study. Plan: Cardiac monitoring NOW Lopressor 5mg Transfer to telemetry floor Repeat EKG after lopressor Visit type - Emergency Visit Emergency Visit: Yes ED Registration Date: 02/20/18 Care time: The patient presented to the Emergency Department on the above date and was hospitalized for further evaluation of their emergent condition. - New Patient This patient is new to me today: Yes Date on this admission: 02/21/18 - Critical Care Critical Care patient: No
[2018-02-21] MEDS ORDERED: METOPROLOL TARTRATE 5 MG/5 ML VIAL IVPUSH ONE (03:47)
[2018-02-21] MEDS ORDERED: ALBUTEROL SO4 0.083% IH SOL 2.5 MG/3 ML VIAL.NEB. NEB PRN (04:41)
[2018-02-21] MEDS ORDERED: DILTIAZEM INJECTION 125 MG in SODIUM CHLORIDE 100 ML IVPB SCH ×2 (05:15→11:17)
[2018-02-21 06:06] LABS: SERUM IRON SATURATION 3 % (15-55); TOTAL IRON BINDING CAPACITY 361 ug/dL (250-450); UIBC 351 ug/dL (118-369)
[2018-02-21 07:08] LABS: BASO % 0.1 % (0-2.0); HEMATOCRIT 26.6 % (32.4-45.2); HEMOGLOBIN 8.4 GM/dL (10.7-15.3); LYMPH % 2.4 % (8-40); MCH 24.7 pg (25.7-33.7); MCHC 31.6 g/dl (32.0-36.0); MEAN CELL VOLUME 78.2 fl (80-96); MONO % 1.8 % (3.8-10.2); NEUT % 95.7 % (42.8-82.8); PLATELET COUNT 388 K/MM3 (134-434); RBC 3.41 M/mm3 (3.60-5.2); RDW 18.7 % (11.6-15.6); WHITE BLOOD COUNT 7.3 K/mm3 (4.0-10.0)
[2018-02-21 07:42] LABS: ANION GAP 10 MMOL/L (8-16); BLOOD UREA NITROGEN 37 mg/dL (7-18); CALCIUM 8.2 mg/dL (8.5-10.1); CHLORIDE 107 mmol/L (98-107); CO2 26 mmol/L (21-32); GLUCOSE,RANDOM 156 mg/dL (74-106); POTASSIUM 4.1 mmol/L (3.5-5.1); SODIUM 143 mmol/L (136-145)
[2018-02-21] MEDS ORDERED: ALBUTEROL SO4 2.5/IPRATROPIUM 0.5 INH SOL 3 ML VIAL.NEB. NEB SCH (08:00)
[2018-02-21] MEDS ORDERED: PT OWN MED DRAWER 7, Y5N ONE (09:33)
[2018-02-21] MEDS: BUDESONIDE/FORMETEROL FUMARATE 160/4.5 mcg INHALER IH SCH ×2 (09:36→21:50)
[2018-02-21] MEDS: cloNIDine HCL 0.1 MG TABLET PO SCH (09:37)
[2018-02-21] MEDS: PANTOPRAZOLE 40 MG TABLET (FP) PO SCH (09:37)
[2018-02-21] MEDS: ENOXAPARIN NA (PORCINE) 30 MG/0.3 ML DISP.SYRIN SQ SCH (09:37)
[2018-02-21] MEDS ORDERED: ALBUTEROL SO4 2.5/IPRATROPIUM 0.5 INH SOL 3 ML VIAL.NEB. NEB PRN (09:48)
[2018-02-21] MEDS ORDERED: predniSONE 20 MG TABLET (UD) PO SCH (10:00)
[2018-02-21] MEDS ORDERED: VERAPAMIL HCL 240 MG E.R. TABLET (FP) PO SCH (10:00)
[2018-02-21] MEDS ORDERED: methylPREDNISolone NA SUCC 40 MG/1 ML VIAL IVPUSH SCH (10:00)
[2018-02-21] MEDS ORDERED: AZITHROMYCIN 500 MG TABLET PO SCH (10:00)
[2018-02-21 11:01] LABS: MAGNESIUM 2.4 mg/dL (1.8-2.4)
--- NOTE | 2018-02-21 11:26 | CON.CARD ---
Cardiology Consult (text) - Consultation Consultation Note: cc: sob hpi: 72 f hx copd, htn, , mr, here with sob, cough, wheeze. No cp palps dizzy loc pnd orthopnea le edema. Admitted and treated for copd, feeling better. Last night had new onset afib with rvr. Sees cardio in [facility] for valve issues. No hx mi or cad per daughter and pt. 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, hematuria dysuria wt loss muscle pain meds: Home Medications Medication Instructions Recorded Albuterol Sulfate Inhaler - 1 - 2 inh PO Q4H 01/23/18 [Ventolin Hfa Inhaler -] Clonidine HCl 0.1 mg PO DAILY 01/23/18 Pantoprazole Sodium [Protonix] 40 mg PO DAILY 01/23/18 Budesonide/Formeterol Fumarate 1 inh PO DAILY 02/18/18 [SYMBICORT 160/4.5mcg -] Verapamil HCl [Verapamil ER] 240 mg PO DAILY 02/18/18 pe: Vital Signs Period Temp Pulse Resp BP Sys/[place] Pulse Ox Last 24 Hr 97.5 F-98.6 F 70-136 20-24 126-166/56-106 98-98 nad no jvd irreg, tachy, s1s2 +as murmur cta bl nl eff aaox3 no le e/c/c abd nt nd pos bs no jaundice diaphoresis pos dp pt no carotid bruits Laboratory Last Values WBC 7.3 K/mm3 (4.0-10.0) 02/21/18 06:50 RBC 3.41 M/mm3 (3.60-5.2) L 02/21/18 06:50 Hgb 8.4 GM/dL (10.7-15.3) L 02/21/18 06:50 Hct 26.6 % (32.4-45.2) L 02/21/18 06:50 MCV 78.2 fl (80-96) L 02/21/18 06:50 MCH 24.7 pg (25.7-33.7) L 02/21/18 06:50 MCHC 31.6 g/dl (32.0-36.0) L 02/21/18 06:50 RDW 18.7 % (11.6-15.6) H 02/21/18 06:50 Plt Count 388 K/MM3 (134-434) 02/21/18 06:50 MPV 8.0 fl (7.5-11.1) 02/21/18 06:50 Absolute Neuts (auto) 7.0 K/mm3 (1.5-8.0) 02/21/18 06:50 Total Counted 100 02/18/18 15:07 Neutrophils % 95.7 % (42.8-82.8) H 02/21/18 06:50 Neutrophils % (Manual) 96.0 % (42.8-82.8) H 02/19/18 06:00 Band Neutrophils % 0.0 % 02/19/18 06:00 Lymphocytes % 2.4 % (8-40) L D 02/21/18 06:50 Lymphocytes % (Manual) 3.0 % (8-40) L 02/19/18 06:00 Monocytes % 1.8 % (3.8-10.2) L 02/21/18 06:50 Monocytes % (Manual) 1 % (3.8-10.2) L 02/19/18 06:00 Eosinophils % 0.0 % (0-4.5) 02/21/18 06:50 Eosinophils % (Manual) 0.0 % (0-4.5) 02/19/18 06:00 Basophils % 0.1 % (0-2.0) D 02/21/18 06:50 Basophils % (Manual) 0.0 % (0-2.0) 02/19/18 06:00 Myelocytes % (Man) 0 % (0-2) 02/19/18 06:00 Promyelocytes % (Man) 0 % (0-2) 02/19/18 06:00 Blast Cells % (Manual) 0 % (0-0) 02/19/18 06:00 Nucleated RBC % 0 % (0-0) 02/21/18 06:50 Metamyelocytes 0 % (0-2) 02/19/18 06:00 Hypochromia 1+ 02/19/18 06:00 Platelet Estimate Normal 02/19/18 06:00 Polychromasia 1+ 02/19/18 06:00 Poikilocytosis 0 02/19/18 06:00 Anisocytosis 1+ 02/19/18 06:00 Microcytosis 1+ 02/19/18 06:00 Macrocytosis 0 02/19/18 06:00 VBG pH 7.46 (7.32-7.42) H 02/18/18 17:45 POC VBG pCO2 35.9 mmHg (38-52) L D 02/18/18 17:45 POC VBG pO2 55.4 mmHg (28-48) H D 02/18/18 17:45 Mixed VBG HCO3 25.2 meq/L (19-25) H 02/18/18 17:45 Sodium 143 mmol/L (136-145) 02/21/18 06:50 Potassium 4.1 mmol/L (3.5-5.1) 02/21/18 06:50 Chloride 107 mmol/L (98-107) 02/21/18 06:50 Carbon Dioxide 26 mmol/L (21-32) 02/21/18 06:50 Anion Gap 10 MMOL/L (8-16) 02/21/18 06:50 BUN 37 mg/dL (7-18) H 02/21/18 06:50 Creatinine 1.0 mg/dL (0.55-1.3) 02/21/18 06:50 Creat Clearance w eGFR 54.20 (>60) 02/21/18 06:50 Random Glucose 156 mg/dL (74-106) H 02/21/18 06:50 Calcium 8.2 mg/dL (8.5-10.1) L 02/21/18 06:50 Phosphorus 3.8 mg/dL (2.5-4.9) 02/19/18 06:00 Magnesium 2.4 mg/dL (1.8-2.4) 02/21/18 06:50 Iron 10 ug/dL (27-139) L 02/20/18 05:30 TIBC 361 ug/dL (250-450) 02/20/18 05:30 Iron Saturation 3 % (15-55) L 02/20/18 05:30 Ferritin 24.1 ng/ml (8-388) 02/20/18 05:30 Total Bilirubin 0.3 mg/dL (0.2-1) 02/18/18 15:07 AST 37 U/L (15-37) 02/18/18 15:07 ALT 61 U/L (13-61) 02/18/18 15:07 Alkaline Phosphatase 110 U/L (45-117) 02/18/18 15:07 Creatine Kinase 64 IU/L (26-192) 02/18/18 15:07 Troponin I < 0.02 ng/ml (0.00-0.05) 02/18/18 15:07 B-Natriuretic Peptide 2721.8 pg/ml (5-125) H 02/19/18 06:00 Total Protein 6.6 g/dl (6.4-8.2) 02/18/18 15:07 Albumin 3.6 g/dl (3.4-5.0) 02/18/18 15:07 Urine Color Ltyellow 02/18/18 15:40 Urine Appearance Clear 02/18/18 15:40 Urine pH 6.0 (5.0-8.0) 02/18/18 15:40 Ur Specific [place] 1.009 (1.010-1.035) L 02/18/18 15:40 Urine Protein Negative (NEGATIVE) 02/18/18 15:40 Urine Glucose (UA) Negative (NEGATIVE) 02/18/18 15:40 Urine Ketones Negative (NEGATIVE) 02/18/18 15:40 Urine Blood Negative (NEGATIVE) 02/18/18 15:40 Urine Nitrite Negative (NEGATIVE) 02/18/18 15:40 Urine Bilirubin Negative (<2.0 mg/dL) 02/18/18 15:40 Urine Urobilinogen Negative mg/dL (0.2-1.0) 02/18/18 15:40 Ur Leukocyte Esterase 2+ (NEGATIVE) H 02/18/18 15:40 Urine WBC (Auto) 10 /hpf (3-5) 02/18/18 15:40 Urine RBC (Auto) 1 /hpf (0-3) 02/18/18 15:40 Ur Epithelial Cells Rare /HPF (FEW) 02/18/18 15:40 tele: afib, vr 120s echo 01/2018: nl lv/rv, lesvia, mod mr, mod-sev tr, mod phtn, mod as cxr: clear lungs ecg: sr, nl intervals, no ischemic changes, pac a/p: 72 f hx copd, htn, , mr, here with sob, cough, wheeze. sob, copd: -on iv steroids, abx, pulm following. sxs improving. htn: -cont clonidine , mr, tr: -chronic issues, following with cardio in [facility] -no signs chf here -stable on current echo, outpt f/u afib: -new onset afib with rvr here -on dilt gtt, will start dilt 120 bid po and titrate gtt off as hr improves, cont tele -[facility] warrants ac but she had UGIB last month and egd showed esophagitis/ ulcers so would not start AC unless ok by GI
[2018-02-21 12:20] LABS: ANISOCYTOSIS 2+; MACROCYTOSIS 0; OVALOCYTE 1+; PLATELET ESTIMATE NORMAL; TARGET CELLS 1+
--- NOTE | 2018-02-21 12:36 | PN ---
Progress Note, Physician History of Present Illness: PULMONARY ALERT,LESS DYSPNEIC,+ WHEEZES - Current Medication List Current Medications: Active Medications Albuterol Sulfate (Ventolin 0.083% Nebulizer Soln -) 1 amp NEB Q4H PRN PRN Reason: SHORT OF BREATH/WHEEZING Albuterol/Ipratropium (Duoneb -) 1 amp NEB RQID PRN PRN Reason: SHORTNESS OF BREATH Budesonide/Formoterol Fumarate (Symbicort 160/4.5mcg -) 2 puff IH BID [facility] Last Admin: 02/21/18 09:36 Dose: 2 puff Clonidine (Catapres -) 0.1 mg PO DAILY [facility] Last Admin: 02/21/18 09:37 Dose: 0.1 mg Diltiazem HCl (Cardizem Cd -) 120 mg PO BID [facility] Enoxaparin Sodium (Lovenox -) 30 mg SQ DAILY [facility] Last Admin: 02/21/18 09:37 Dose: 30 mg Diltiazem HCl 125 mg/ Sodium (Chloride) 125 mls @ 5 mls/hr IVPB TITR [facility]; Protocol Pantoprazole Sodium (Protonix -) 40 mg PO DAILY [facility] Last Admin: 02/21/18 09:37 Dose: 40 mg Prednisone (Deltasone -) 60 mg PO DAILY [facility] Last Admin: 02/21/18 11:16 Dose: 60 mg - Objective Vital Signs: Vital Signs Temperature 97.5 F L 02/21/18 08:00 Pulse Rate 87 02/21/18 11:33 Respiratory Rate 22 H 02/21/18 09:52 Blood Pressure 141/73 02/21/18 09:52 O2 Sat by Pulse Oximetry (%) 98 02/21/18 11:33 Constitutional: Yes: Well Nourished, Calm Eyes: Yes: WNL HENT: Yes: WNL Neck: Yes: WNL Cardiovascular: Yes: Pulse Irregular, S1, S2 Respiratory: Yes: Wheezes (BILATERAL WHEEZES) Gastrointestinal: Yes: Normal Bowel Sounds, Soft Extremities: Yes: WNL Edema: No Labs: CBC, BMP 02/21/18 06:50 02/21/18 06:50 Problem List - Problems (1) Asthma exacerbation Code(s): J45.901 - UNSPECIFIED ASTHMA WITH (ACUTE) EXACERBATION (2) Aortic stenosis Code(s): I35.0 - NONRHEUMATIC AORTIC (VALVE) STENOSIS (3) H/O: GI bleed Code(s): Z87.19 - PERSONAL HISTORY OF OTHER DISEASES OF THE DIGESTIVE SYSTEM (4) MVP (mitral valve prolapse) Code(s): I34.1 - NONRHEUMATIC MITRAL (VALVE) PROLAPSE (5) Asthma-COPD overlap syndrome Code(s): J44.9 - CHRONIC OBSTRUCTIVE PULMONARY DISEASE, UNSPECIFIED Assessment/Plan IMP ACUTE RESPIRATORY DISTRESS ACUTE ASTHMA/COPD EXACERBATION LIKELY SECONDARY TO URI AORTIC STENOSIS NEW ONSET AFIB MODERATE PULMONARY HTN HTN CHF ASHD PLAN SOLUMEDROL INHALED BRONCHODILATORS SUPPLEMENTAL O2 ABX DAILY PEAK FLOW DR WHALEN Problem List - Problems (1) Asthma exacerbation Code(s): J45.901 - UNSPECIFIED ASTHMA WITH (ACUTE) EXACERBATION (2) Aortic stenosis Code(s): I35.0 - NONRHEUMATIC AORTIC (VALVE) STENOSIS (3) H/O: GI bleed Code(s): Z87.19 - PERSONAL HISTORY OF OTHER DISEASES OF THE DIGESTIVE SYSTEM (4) MVP (mitral valve prolapse) Code(s): I34.1 - NONRHEUMATIC MITRAL (VALVE) PROLAPSE (5) Asthma-COPD overlap syndrome Code(s): J44.9 - CHRONIC OBSTRUCTIVE PULMONARY DISEASE, UNSPECIFIED
--- NOTE | 2018-02-21 15:39 | PN ---
Teaching Attending Note Name of Resident: Neal Salomon ATTENDING PHYSICIAN STATEMENT I saw and evaluated the patient. I reviewed the resident's note and discussed the case with the resident. I agree with the resident's findings and plan as documented. CC:shortness of breath, nw Afib, HX of UGIB and esophagitis. SUBJECTIVE: She is in no distress, states that has intermittent palpitations, she was found to be tachycardic and in Afib yesterday and transfered to tele. stated on cardizem drip, Evaluated by card today. OBJECTIVE: she is in no distress;l talks in full sentences, no use of accessory muscles at this time Has end expiratory wheezing, MMM CVS:S1S2, Irreulary irregular ABd: B+ NT/ND ext: No edema Labs: TTE:(02/20/2018) NL LV, EF 65-70% moderate RA / LA enlargement, mof MR, MO-SEVERE TR, Mod PHTN, MOD aortic stenosis CBCD WBC 7.3 K/mm3 (4.0-10.0) 02/21/18 06:50 RBC 3.41 M/mm3 (3.60-5.2) L 02/21/18 06:50 Hgb 8.4 GM/dL (10.7-15.3) L 02/21/18 06:50 Hct 26.6 % (32.4-45.2) L 02/21/18 06:50 MCV 78.2 fl (80-96) L 02/21/18 06:50 MCHC 31.6 g/dl (32.0-36.0) L 02/21/18 06:50 RDW 18.7 % (11.6-15.6) H 02/21/18 06:50 Plt Count 388 K/MM3 (134-434) 02/21/18 06:50 MPV 8.0 fl (7.5-11.1) 02/21/18 06:50 CMP Sodium 143 mmol/L (136-145) 02/21/18 06:50 Potassium 4.1 mmol/L (3.5-5.1) 02/21/18 06:50 Chloride 107 mmol/L (98-107) 02/21/18 06:50 Carbon Dioxide 26 mmol/L (21-32) 02/21/18 06:50 Anion Gap 10 MMOL/L (8-16) 02/21/18 06:50 BUN 37 mg/dL (7-18) H 02/21/18 06:50 Creatinine 1.0 mg/dL (0.55-1.3) 02/21/18 06:50 Creat Clearance w eGFR 54.20 (>60) 02/21/18 06:50 Calcium 8.2 mg/dL (8.5-10.1) L 02/21/18 06:50 Total Bilirubin 0.3 mg/dL (0.2-1) 02/18/18 15:07 AST 37 U/L (15-37) 02/18/18 15:07 ALT 61 U/L (13-61) 02/18/18 15:07 Alkaline Phosphatase 110 U/L (45-117) 02/18/18 15:07 Total Protein 6.6 g/dl (6.4-8.2) 02/18/18 15:07 Albumin 3.6 g/dl (3.4-5.0) 02/18/18 15:07 Current Medications Generic Name Dose Route Start Last Admin Trade Name Freq PRN Reason Stop Dose Admin Albuterol Sulfate 1 amp 02/21/18 04:41 Ventolin 0.083% Nebulizer Soln - NEB Q4H PRN SHORT OF BREATH/WHEEZING Albuterol/Ipratropium 1 amp 02/21/18 09:48 Duoneb - NEB RQID PRN SHORTNESS OF BREATH Budesonide/Formoterol Fumarate 2 puff 02/21/18 10:00 02/21/18 09:36 Symbicort 160/4.5mcg - IH 2 puff BID YOEL Administration Clonidine 0.1 mg 02/21/18 10:00 02/21/18 09:37 Catapres - PO 0.1 mg DAILY YOEL Administration Diltiazem HCl 120 mg 02/21/18 11:30 02/21/18 12:51 Cardizem Cd - PO 120 mg BID YOEL Administration Enoxaparin Sodium 30 mg 02/21/18 10:00 02/21/18 09:37 Lovenox - SQ 30 mg DAILY YOEL Administration Diltiazem HCl 125 mg/ Sodium 125 mls @ 5 mls/hr 02/21/18 11:17 02/21/18 12:51 Chloride IVPB 5 mg/hr TITR YOEL 5 mls/hr Administration Protocol 5 MG/HR Methylprednisolone Sodium Succinate 40 mg 02/21/18 12:45 02/21/18 12:51 Solu-Medrol - IVPUSH 40 mg Q8H-IV YOEL Administration Pantoprazole Sodium 40 mg 02/21/18 10:00 02/21/18 09:37 Protonix - PO 40 mg DAILY YOEL Administration ASSESSMENT AND PLAN: Asthma exacerbation: now improved, with no respiratory distress, Will DC Iv solu medrol, start on prednisone 40 mg po daily C.W albutrol/atrovents nebs PRN. Can hold off on Xymbacort while on systemc steroids. Check PF NEW AFib:Still tachy, evaluated by cardio, their recs appreciated. C/W tele. AC: carter UGLILIAM Multiple valvular disease: per cardiology note she F/U with her breaker off, can consider sending her to the clinic [facility] for possible valve replacement and EP intervention for her at the same time. Anemia: microcycitic, hypochromic, most likley Iron deficiecy, can consider ending retic count and iron studies. will restart on Iron supplements. PUD PPX in the patient on high sode steroids:She is on PPI in the setting of carter GIB Dispo: hoe in 3 days.
--- NOTE | 2018-02-21 18:01 | PN ---
Physical Exam: SUBJECTIVE: Patient seen and examined at bedside. Went into atrial fibrillation overnight. Cardizem drip started. OBJECTIVE: Vital Signs Period Temp Pulse Resp BP Sys/[place] Pulse Ox Last 24 Hr 97.5 F-98.6 F 70-136 20-24 126-166/56-106 98-100 GENERAL: AAOx3, NAD HEAD: NC/AT. EYES:EOMI PERRLA ENT: MMM LUNGS: Diffuse expiratory wheezing HEART: Irregularly irregular ABDOMEN: Soft, nontender, no hsm EXTREMITIES: No CCE NEUROLOGICAL: CN 2-12 intact PSYCH: Normal mood, normal affect. SKIN: Warm, dry, normal turgor, no rashes or lesions noted Laboratory Results - last 24 hr 02/20/18 02/21/18 02/21/18 05:30 06:50 06:50 WBC 7.3 RBC 3.41 L Hgb 8.4 L Hct 26.6 L MCV 78.2 L MCH 24.7 L MCHC 31.6 L RDW 18.7 H Plt Count 388 MPV 8.0 Absolute Neuts (auto) 7.0 Neutrophils % 95.7 H Neutrophils % (Manual) 94.1 H Band Neutrophils % 3.2 Lymphocytes % 2.4 L D Lymphocytes % (Manual) 2.7 L Monocytes % 1.8 L Monocytes % (Manual) 0 L D Eosinophils % 0.0 Eosinophils % (Manual) 0.0 Basophils % 0.1 D Basophils % (Manual) 0.0 Myelocytes % (Man) 0 Promyelocytes % (Man) 0 Blast Cells % (Manual) 0 Nucleated RBC % 0 Metamyelocytes 0 Hypochromia 0 Platelet Estimate Normal Polychromasia 2+ Poikilocytosis 1+ Basophilic Stippling 1+ Anisocytosis 2+ Microcytosis 2+ Macrocytosis 0 Target Cells 1+ Ovalocytes 1+ Celeste Cells 1+ Fragmented RBCs 1+ Sodium 143 Potassium 4.1 Chloride 107 Carbon Dioxide 26 Anion Gap 10 BUN 37 H Creatinine 1.0 Creat Clearance w eGFR 54.20 Random Glucose 156 H Calcium 8.2 L Magnesium 2.4 Iron 10 L TIBC 361 Iron Saturation 3 L Active Medications Generic Name Dose Route Start Last Admin Trade Name Freq PRN Reason Stop Dose Admin Albuterol Sulfate 1 amp 02/21/18 04:41 Ventolin 0.083% Nebulizer Soln - NEB Q4H PRN SHORT OF BREATH/WHEEZING Albuterol/Ipratropium 1 amp 02/21/18 09:48 Duoneb - NEB RQID PRN SHORTNESS OF BREATH Budesonide/Formoterol Fumarate 2 puff 02/21/18 10:00 02/21/18 09:36 Symbicort 160/4.5mcg - IH 2 puff BID YOEL Administration Clonidine 0.1 mg 02/21/18 10:00 02/21/18 09:37 Catapres - PO 0.1 mg DAILY YOEL Administration Diltiazem HCl 120 mg 02/21/18 11:30 02/21/18 12:51 Cardizem Cd - PO 120 mg BID YOEL Administration Enoxaparin Sodium 30 mg 02/21/18 10:00 02/21/18 09:37 Lovenox - SQ 30 mg DAILY YOEL Administration Methylprednisolone Sodium Succinate 40 mg 02/21/18 12:45 02/21/18 17:07 Solu-Medrol - IVPUSH 40 mg Q8H-IV YOEL Administration Pantoprazole Sodium 40 mg 02/21/18 10:00 02/21/18 09:37 Protonix - PO 40 mg DAILY YOEL Administration ASSESSMENT/PLAN: 72 y/o lady with PMH of COPD not on home O2, UGI bleed, CHF, CAD, , MVP and HTN presented to the ER with cough and wheezing and was admitted for acute COPD exacerbation #Acute asthma exacerbation * CXR with no acute pathology * ABG 02/18 --> VBG ph 7.46, VBG pco2 35.9, VBG po2 55.4, mixed vbg hco3 25.2 * Duoneb scheduled and PRN * Incentive spirometry * Pulmonology, Dr Ponce, on board. Recommends Solu-Medrol IV Q8H. # Atrial Fibrillation-Now onset -New onset afib with rvr here -Cardiology on board- Dr Serrano - Currently on Cardizem gtt @ 5 mcg/hr d/c'ed -Cardizem 120 mg po bid daily per cardiology -Per cardiology, No AC though [id number] recommends it due to h/o UGIbleed # HTN -Catapres 0.1 mg po daily #Anemia * recent admission for Upper GI bleed * monitor H/H * transfuse if hgb below 7 * -Iron supplements * - Vit C #CHF * no signs of exacerbation, stable #Aortic Stenosis/MVP Echo 02/20--> Mild dilation R atrium, L atrium moderately dilated, moderate mitral regurg, moderate to severe tricuspid regurg, moderate pulmonary hypertension, moderate valvular aortic stenosis. -Consider sending p to [facility] for possible valve replacement and EP intervention per cardiology #FEN No Fluids Monitor Electrolytes Sodium Controlled Diet #DVT ppx Lovenox 30 mg SQ Daily #Dispo * Telemetry Visit type - Emergency Visit Emergency Visit: Yes ED Registration Date: 02/20/18 Care time: The patient presented to the Emergency Department on the above date and was hospitalized for further evaluation of their emergent condition. - New Patient This patient is new to me today: No - Critical Care Critical Care patient: No
[2018-02-22] MEDS: methylPREDNISolone NA SUCC 40 MG/1 ML VIAL IVPUSH SCH ×2 (02:10→10:03)
[2018-02-22 07:46] LABS: HEMATOCRIT 27.2 % (32.4-45.2); HEMOGLOBIN 8.8 GM/dL (10.7-15.3); MCH 25.2 pg (25.7-33.7); MCHC 32.2 g/dl (32.0-36.0); MEAN CELL VOLUME 78.2 fl (80-96); MEAN PLT VOLUME 8.5 fl (7.5-11.1); PLATELET COUNT 465 K/MM3 (134-434); RBC 3.48 M/mm3 (3.60-5.2); RDW 18.5 % (11.6-15.6); WHITE BLOOD COUNT 6.7 K/mm3 (4.0-10.0)
--- NOTE | 2018-02-22 08:34 | PN ---
Physical Exam: SUBJECTIVE: Patient seen and examined at bedside. No current complaints. Reports breathing has significantly improved. Denies chest pain or shortness of breath. OBJECTIVE: Vital Signs Period Temp Pulse Resp BP Sys/[place] Pulse Ox Last 24 Hr 97.2 F-98.4 F 86-135 18-22 126-153/60-96 97-100 GENERAL: The patient is awake, alert, and fully oriented, in no acute distress. HEAD: Normal with no signs of trauma. LUNGS: Breath sounds equal, clear to auscultation bilaterally, no wheezes, no crackles, no accessory muscle use. HEART: tachycardic, irregular rhythm, harsh systolic murmur appreciated ABDOMEN: Soft, nontender, nondistended, normoactive bowel sounds, no guarding, no rebound, no hepatosplenomegaly, no masses. EXTREMITIES: 2+ pulses, warm, well-perfused, no edema. NEUROLOGICAL: Cranial nerves II through XII grossly intact. Normal speech, gait not observed. PSYCH: Normal mood, normal affect. SKIN: Warm, dry, normal turgor, no rashes or lesions noted Laboratory Results - last 24 hr 02/21/18 02/21/18 02/22/18 06:50 06:50 06:35 WBC 6.7 RBC 3.48 L Hgb 8.8 L Hct 27.2 L MCV 78.2 L MCH 25.2 L MCHC 32.2 RDW 18.5 H Plt Count 465 H MPV 8.5 Neutrophils % (Manual) 94.1 H Band Neutrophils % 3.2 Lymphocytes % (Manual) 2.7 L Monocytes % (Manual) 0 L D Eosinophils % (Manual) 0.0 Basophils % (Manual) 0.0 Myelocytes % (Man) 0 Promyelocytes % (Man) 0 Blast Cells % (Manual) 0 Metamyelocytes 0 Hypochromia 0 Platelet Estimate Normal Polychromasia 2+ Poikilocytosis 1+ Basophilic Stippling 1+ Anisocytosis 2+ Microcytosis 2+ Macrocytosis 0 Target Cells 1+ Ovalocytes 1+ [place]este Cells 1+ Fragmented RBCs 1+ Sodium 143 Potassium 4.1 Chloride 107 Carbon Dioxide 26 Anion Gap 10 BUN 37 H Creatinine 1.0 Creat Clearance w eGFR 54.20 Random Glucose 156 H Calcium 8.2 L Magnesium 2.4 Active Medications Generic Name Dose Route Start Last Admin Trade Name Freq PRN Reason Stop Dose Admin Albuterol Sulfate 1 amp 02/21/18 04:41 Ventolin 0.083% Nebulizer Soln - NEB Q4H PRN SHORT OF BREATH/WHEEZING Albuterol/Ipratropium 1 amp 02/21/18 09:48 Duoneb - NEB RQID PRN SHORTNESS OF BREATH Ascorbic Acid 500 mg 02/22/18 10:00 Vitamin C - PO DAILY YOEL Budesonide/Formoterol Fumarate 2 puff 02/21/18 10:00 02/21/18 21:50 Symbicort 160/4.5mcg - IH 2 puff BID YOEL Administration Clonidine 0.1 mg 02/21/18 10:00 02/21/18 09:37 Catapres - PO 0.1 mg DAILY YOEL Administration Diltiazem HCl 120 mg 02/21/18 11:30 02/21/18 21:50 Cardizem Cd - PO 120 mg BID YOEL Administration Enoxaparin Sodium 30 mg 02/21/18 10:00 02/21/18 09:37 Lovenox - SQ 30 mg DAILY YOEL Administration Ferrous Sulfate 325 mg 02/22/18 10:00 Feosol - PO DAILY YOEL Methylprednisolone Sodium Succinate 40 mg 02/21/18 12:45 02/22/18 02:10 Solu-Medrol - IVPUSH 40 mg Q8H-IV YOEL Administration Pantoprazole Sodium 40 mg 02/21/18 10:00 02/21/18 09:37 Protonix - PO 40 mg DAILY YOEL Administration Polyethylene Glycol 17 gm 02/22/18 10:00 Miralax (For Daily Use) - PO DAILY YOEL ASSESSMENT/PLAN: 72 y/o lady with PMH of COPD not on home O2, UGI bleed, CHF, CAD, , MVP and HTN presented to the ER with cough and wheezing and was admitted for acute COPD exacerbation #COPD exacerbation: improving, no longer wheezing as much on exam and O2 saturation is 98% on 2L NC -will do O2 sat on room air -start prednisone 20mg tomorrow -duoneb PRN -encourage use of Incentive spirometry -pulm consult appreciated #Atrial Fibrillation: new in onset, HR now at 107 average since 2am, improving -cards consult appreciated -on cardizem 120mg PO BID, one time dose of 60mg now to assess HR and if cardizem needs to be -d/w cards, hold AC due to recent hx of GI bleed, would get opinion of GI -consult GI Dr. Segal for recommendations about restarting AC #Hypertension -continue home clonidine 0.1 mg po daily #Anemia: stable, hgb is at 8.8 today -patient is not having melena or BRBPR -transfusion thresholds < 7 -ferrous sulfate ordered with vitamin C supplementation for increased absorption -miralax for constipation is ordered #Aortic Stenosis/Mitral Valve Prolapse: chronic -will need to discuss with cards if these abnormalities warrant EP evaluation as an outpatient as possible causes of her atrial fibrillation -Echo 02/20--> Mild dilation R atrium, L atrium moderately dilated, moderate mitral regurg, moderate to severe tricuspid regurg, moderate pulmonary hypertension, moderate valvular aortic stenosis. #FEN No Fluids Monitor Electrolytes Sodium Controlled Diet #Prophylaxis -Lovenox 30 mg SQ Daily #Disposition -Continue to monitor on telemetry Visit type - Emergency Visit Emergency Visit: No - New Patient This patient is new to me today: No - Critical Care Critical Care patient: No
[2018-02-22 08:46] LABS: ANION GAP 8 MMOL/L (8-16); BLOOD UREA NITROGEN 33 mg/dL (7-18); CALCIUM 8.1 mg/dL (8.5-10.1); CHLORIDE 107 mmol/L (98-107); CO2 26 mmol/L (21-32); CREATININE 0.9 mg/dL (0.55-1.3); GLUCOSE,RANDOM 167 mg/dL (74-106); MAGNESIUM 2.4 mg/dL (1.8-2.4); PHOSPHOROUS 3.6 mg/dL (2.5-4.9); POTASSIUM 4.7 mmol/L (3.5-5.1); SODIUM 140 mmol/L (136-145)
--- NOTE | 2018-02-22 09:07 | PN ---
Progress Note, Physician Chief Complaint: sob History of Present Illness: sob better, as is wheezing. "sometimes" feels palpitations no cp remote cigs - Current Medication List Current Medications: Active Medications Albuterol Sulfate (Ventolin 0.083% Nebulizer Soln -) 1 amp NEB Q4H PRN PRN Reason: SHORT OF BREATH/WHEEZING Albuterol/Ipratropium (Duoneb -) 1 amp NEB RQID PRN PRN Reason: SHORTNESS OF BREATH Ascorbic Acid (Vitamin C -) 500 mg PO DAILY [facility] Budesonide/Formoterol Fumarate (Symbicort 160/4.5mcg -) 2 puff IH BID [facility] Last Admin: 02/21/18 21:50 Dose: 2 puff Clonidine (Catapres -) 0.1 mg PO DAILY [facility] Last Admin: 02/21/18 09:37 Dose: 0.1 mg Diltiazem HCl (Cardizem Cd -) 120 mg PO BID [facility] Last Admin: 02/21/18 21:50 Dose: 120 mg Enoxaparin Sodium (Lovenox -) 30 mg SQ DAILY [facility] Last Admin: 02/21/18 09:37 Dose: 30 mg Ferrous Sulfate (Feosol -) 325 mg PO DAILY [facility] Methylprednisolone Sodium Succinate (Solu-Medrol -) 40 mg IVPUSH Q8H-IV [facility] Last Admin: 02/22/18 02:10 Dose: 40 mg Pantoprazole Sodium (Protonix -) 40 mg PO DAILY [facility] Last Admin: 02/21/18 09:37 Dose: 40 mg Polyethylene Glycol (Miralax (For Daily Use) -) 17 gm PO DAILY [facility] - Objective Vital Signs: Vital Signs Temperature 98.1 F 02/22/18 05:00 Pulse Rate 101 H 02/22/18 05:00 Respiratory Rate 18 02/22/18 05:00 Blood Pressure 136/74 02/22/18 05:00 O2 Sat by Pulse Oximetry (%) 98 02/22/18 05:00 Constitutional: Yes: No Distress, Calm Eyes: No: Sclera Icterus HENT: No: Nasal Congestion Cardiovascular: Yes: Pulse Irregular (decr intensity), Murmur (2/6 DORIE, no S2 split heard), S1, S2, Other (PMI non diplaced). No: JVD, Gallop Respiratory: Yes: CTA Bilaterally, Wheezes (faint, bilat). No: Accessory Muscle Use, Rales Gastrointestinal: Yes: Normal Bowel Sounds, Soft. No: Tenderness Musculoskeletal: Yes: Other (No kyphosis) Extremities: No: Cyanosis Edema: No Integumentary: No: Jaundice Neurological: Yes: Alert, Oriented (x3) Psychiatric: No: Agitated Labs: CBC, BMP 02/22/18 06:35 02/22/18 06:35 Assessment/Plan echo 01/2018: nl lv/rv, lesvia, mod , mod mr, mod-sev tr, mod phtn cxr: clear lungs ecg: sr, nl intervals, no ischemic changes, pac tele: afib 100s-140s bpm a/p: 72 f hx copd, htn, , mr, here with sob, cough, wheeze. sob, copd: -on iv steroids: watch for fluid retention --cont abx, BDs per pulm afib: -new onset afib with rvr here -HRs remain poorly controlled, on diltiazem 120 bid (? a.e. copd sx's +/- steroids contributing to tachycardia) -increase diltiazem to 180 am, 120 pm. add low dose metoprolol (25 qd)--watch for worsening sob/wheeze -chadsvasc 3 warrants ac but she had UGIB last month and egd showed esophagitis/ ulcers -needs GI input regarding safety of initiating AC (worked up and treated by dr rosa here last month) , mr, tr: -chronic issues, following with cardio in [facility] -no signs chf here -stable on current echo, outpt f/u htn: -bp controlled -cont clonidine 0.1 qd as doing--low threshold stop this if bp's trend down on afib AVN ирина regimen
[2018-02-22] MEDS: FERROUS SO4 325 MG TABLET (FP) PO SCH (10:02)
[2018-02-22] MEDS: PANTOPRAZOLE 40 MG TABLET (FP) PO SCH (10:02)
[2018-02-22] MEDS: cloNIDine HCL 0.1 MG TABLET PO SCH (10:02)
[2018-02-22] MEDS: ASCORBIC ACID 500 MG TABLET (FP) PO SCH (10:02)
[2018-02-22] MEDS: ENOXAPARIN NA (PORCINE) 30 MG/0.3 ML DISP.SYRIN SQ SCH (10:02)
[2018-02-22] MEDS: BUDESONIDE/FORMETEROL FUMARATE 160/4.5 mcg INHALER IH SCH ×2 (10:03→22:23)
[2018-02-22] MEDS: POLYETHYLENE GLYCOL 3350 119 GM BTL PO SCH (10:04)
[2018-02-22] MEDS ORDERED: dilTIAZem HCL 60 MG TABLET (FP) PO ONE (10:33)
[2018-02-22] MEDS: FUROSEMIDE 20 MG TABLET (FP) PO SCH (10:53)
--- NOTE | 2018-02-22 11:29 | PN ---
Teaching Attending Note Name of Resident: Francis Martinez ATTENDING PHYSICIAN STATEMENT I saw and evaluated the patient. I reviewed the resident's note and discussed the case with the resident. I agree with the resident's findings and plan as documented. SUBJECTIVE: no overnight events, tele reviewed: still tachy her rate is 120s with activity and 90-100s at sleep. has a new B/L 2+ pitting edema up to the knees B/L which she states is new for her. OBJECTIVE: vs Last Vital Signs Temp Pulse Resp BP Pulse Ox 98.1 F 101 H 18 136/74 98 02/22/18 05:00 02/22/18 05:00 02/22/18 05:00 02/22/18 05:00 02/22/18 05:00 in no distress, has no respiratory distress and no wheezing. CTAB Abd:BS+, NT/ND Ext: 2+ pitting edema B/L up to the knees Laboratory Tests 02/20/18 05:30 Iron 10 L TIBC 361 Iron Saturation 3 L Current Medications Generic Name Dose Route Start Last Admin Trade Name Freq PRN Reason Stop Dose Admin Albuterol Sulfate 1 amp 02/21/18 04:41 Ventolin 0.083% Nebulizer Soln - NEB Q4H PRN SHORT OF BREATH/WHEEZING Albuterol/Ipratropium 1 amp 02/21/18 09:48 Duoneb - NEB RQID PRN SHORTNESS OF BREATH Ascorbic Acid 500 mg 02/22/18 10:00 02/22/18 10:02 Vitamin C - PO 500 mg DAILY [facility] Administration Budesonide/Formoterol Fumarate 2 puff 02/21/18 10:00 02/22/18 10:03 Symbicort 160/4.5mcg - IH 2 puff BID [facility] Administration Clonidine 0.1 mg 02/21/18 10:00 02/22/18 10:02 Catapres - PO 0.1 mg DAILY [facility] Administration Diltiazem HCl 120 mg 02/22/18 10:33 Cardizem Cd - PO BID [facility] Enoxaparin Sodium 30 mg 02/21/18 10:00 02/22/18 10:02 Lovenox - SQ 30 mg DAILY [facility] Administration Ferrous Sulfate 325 mg 02/22/18 10:00 02/22/18 10:02 Feosol - PO 325 mg DAILY [facility] Administration Furosemide 20 mg 02/22/18 10:30 02/22/18 10:53 Lasix - PO 20 mg DAILY [facility] Administration Pantoprazole Sodium 40 mg 02/21/18 10:00 02/22/18 10:02 Protonix - PO 40 mg DAILY [facility] Administration Polyethylene Glycol 17 gm 02/22/18 10:00 02/22/18 10:04 Miralax (For Daily Use) - PO 17 gm DAILY [facility] Administration Prednisone 20 mg 02/23/18 10:00 Deltasone - PO 02/23/18 10:01 ONCE ONE ASSESSMENT AND PLAN: Asthma exacerbation: now improved, with no respiratory distress, Will DC Iv solu medrol, start on prednison 20 mg po daily from tomorrow C.W albutrol/atrovents nebs PRN. Can hold off on symbacort while on systemic steroids. Check PF hse is on no home O2 will discus with nursing to DC the O2 nc Will have her walk and evaluate her HR as well as respiratory condition NEW AFib:Still tachy, will increase the dose to 180 mg BID and monitor for response, her rate is 120s with activity and 90-100s at sleep,evaluated by cardio, their recs appreciated. C/W tele. 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 Will start her on lasix 20 ,g po daily and will reevaluate her urine out put Anemia: microcycitic, hypochromic, iron deficiency anemia with iron sat 3%. was started on Iron supplements. PUD PPX in the patient on high dose steroids:She is on PPI in the setting of recent GIB Dispo: home in 3 days.
[2018-02-22] MEDS: metoPROLOL SUCCINATE 25 MG TAB.SR.24H (FP) PO SCH (14:06)
--- NOTE | 2018-02-22 14:37 | PN ---
Progress Note (short form) - Note Progress Note: PULMONARY Breathing continues to improve. Episodes of rapid afib. Vital Signs Period Temp Pulse Resp BP Sys/[place] Pulse Ox Last 24 Hr 97.2 F-98.2 F 95-120 18-20 126-136/74-92 97-98 Gen: less tachypneic Heart: RRR Lung: decreased breath sounds at the bases Abd: soft, nontender Ext: + edema CBC, BMP 02/22/18 06:35 02/22/18 06:35 Active Medications Albuterol Sulfate (Ventolin 0.083% Nebulizer Soln -) 1 amp NEB Q4H PRN PRN Reason: SHORT OF BREATH/WHEEZING Albuterol/Ipratropium (Duoneb -) 1 amp NEB RQID PRN PRN Reason: SHORTNESS OF BREATH Ascorbic Acid (Vitamin C -) 500 mg PO DAILY [facility] Last Admin: 02/22/18 10:02 Dose: 500 mg Budesonide/Formoterol Fumarate (Symbicort 160/4.5mcg -) 2 puff IH BID [facility] Last Admin: 02/22/18 10:03 Dose: 2 puff Clonidine (Catapres -) 0.1 mg PO DAILY [facility] Last Admin: 02/22/18 10:02 Dose: 0.1 mg Diltiazem HCl (Cardizem Cd -) 120 mg PO DAILY [facility] Diltiazem HCl (Cardizem Cd -) 180 mg PO DAILY [facility] Enoxaparin Sodium (Lovenox -) 30 mg SQ DAILY [facility] Last Admin: 02/22/18 10:02 Dose: 30 mg Ferrous Sulfate (Feosol -) 325 mg PO DAILY [facility] Last Admin: 02/22/18 10:02 Dose: 325 mg Furosemide (Lasix -) 20 mg PO DAILY [facility] Last Admin: 02/22/18 10:53 Dose: 20 mg Metoprolol Succinate (Toprol Xl -) 25 mg PO DAILY [facility] Last Admin: 02/22/18 14:06 Dose: 25 mg Pantoprazole Sodium (Protonix -) 40 mg PO DAILY [facility] Last Admin: 02/22/18 10:02 Dose: 40 mg Polyethylene Glycol (Miralax (For Daily Use) -) 17 gm PO DAILY [facility] Last Admin: 02/22/18 10:04 Dose: 17 gm Prednisone (Deltasone -) 20 mg PO ONCE ONE Stop: 02/23/18 10:01 A/P Acute Asthma Exacerbation improved New Onset Atrial Fibrillation with RVR Aortic Stenosis CAD CHF HTN - agree with PO steroids - inhaled bronchodilators standing and PRN - monitor peak flow - rate control - anticoagulation - O2 to keep SpO2 >90% - DVT prophylaxis
--- NOTE | 2018-02-22 15:06 | EKG ---
Test Reason : Blood Pressure : / mmHG Vent. Rate : 122 BPM Atrial Rate : 115 BPM P-R Int : 000 ms QRS Dur : 088 ms QT Int : 334 ms P-R-T Axes : 000 055 029 degrees QTc Int : 475 ms ATRIAL FIBRILLATION WITH RAPID VENTRICULAR RESPONSE ABNORMAL ECG WHEN COMPARED WITH ECG OF 18-FEB-2018 16:28, ATRIAL FIBRILLATION HAS REPLACED SINUS RHYTHM Confirmed by MD Aruna, Griffin ([id number]) on 02/22/2018 3:06:07 PM Referred By: Confirmed By:Griffin Valdovinos MD
[2018-02-22] MEDS ORDERED: HEPARIN NA (PORCINE) 5,000 UNITS/ML 1ML VIAL IVPUSH PRN ×2 (15:10)
[2018-02-22] MEDS: HEPARIN INFUSION - 25,000 UNITS/500 ML INFUS.BAG IVPB SCH (15:46)
[2018-02-22 17:10] LABS: INR 1.07 (0.83-1.09); PROTHROMBIN TIME (PATIENT) 12.6 SEC (9.7-13.0)
[2018-02-23 07:34] LABS: HEMATOCRIT 26.6 % (32.4-45.2); HEMOGLOBIN 8.5 GM/dL (10.7-15.3); MCH 24.6 pg (25.7-33.7); MCHC 31.8 g/dl (32.0-36.0); MEAN CELL VOLUME 77.3 fl (80-96); MEAN PLT VOLUME 8.1 fl (7.5-11.1); PLATELET COUNT 431 K/MM3 (134-434); RBC 3.44 M/mm3 (3.60-5.2); RDW 18.4 % (11.6-15.6); WHITE BLOOD COUNT 7.7 K/mm3 (4.0-10.0)
[2018-02-23 08:52] LABS: ANION GAP 10 MMOL/L (8-16); BLOOD UREA NITROGEN 32 mg/dL (7-18); CALCIUM 7.8 mg/dL (8.5-10.1); CHLORIDE 103 mmol/L (98-107); CO2 27 mmol/L (21-32); CREATININE 0.9 mg/dL (0.55-1.3); GLUCOSE,RANDOM 164 mg/dL (74-106); POTASSIUM 3.9 mmol/L (3.5-5.1); SODIUM 140 mmol/L (136-145)
[2018-02-23] MEDS ORDERED: PT OWN MED DRAWER 7, Y5N ONE (09:55)
[2018-02-23] MEDS ORDERED: predniSONE 20 MG TABLET (UD) PO ONE (10:00)
[2018-02-23] MEDS: FERROUS SO4 325 MG TABLET (FP) PO SCH (10:10)
[2018-02-23] MEDS: PANTOPRAZOLE 40 MG TABLET (FP) PO SCH (10:10)
[2018-02-23] MEDS: cloNIDine HCL 0.1 MG TABLET PO SCH (10:11)
[2018-02-23] MEDS: metoPROLOL SUCCINATE 25 MG TAB.SR.24H (FP) PO SCH (10:11)
[2018-02-23] MEDS: ASCORBIC ACID 500 MG TABLET (FP) PO SCH (10:11)
[2018-02-23] MEDS: FUROSEMIDE 20 MG TABLET (FP) PO SCH (10:12)
[2018-02-23] MEDS: BUDESONIDE/FORMETEROL FUMARATE 160/4.5 mcg INHALER IH SCH ×2 (10:12→21:22)
[2018-02-23] MEDS: POLYETHYLENE GLYCOL 3350 119 GM BTL PO SCH (10:13)
--- NOTE | 2018-02-23 11:09 | PN ---
Progress Note, Physician Chief Complaint: sob History of Present Illness: sob and wheeze stable. palpitations better. no cp, syncope - Current Medication List Current Medications: Active Medications Albuterol Sulfate (Ventolin 0.083% Nebulizer Soln -) 1 amp NEB Q4H PRN PRN Reason: SHORT OF BREATH/WHEEZING Albuterol/Ipratropium (Duoneb -) 1 amp NEB RQID PRN PRN Reason: SHORTNESS OF BREATH Ascorbic Acid (Vitamin C -) 500 mg PO DAILY [facility] Last Admin: 02/23/18 10:11 Dose: 500 mg Budesonide/Formoterol Fumarate (Symbicort 160/4.5mcg -) 2 puff IH BID [facility] Last Admin: 02/23/18 10:12 Dose: 2 puff Clonidine (Catapres -) 0.1 mg PO DAILY [facility] Last Admin: 02/23/18 10:11 Dose: 0.1 mg Diltiazem HCl (Cardizem Cd -) 120 mg PO DAILY [facility] Last Admin: 02/22/18 17:18 Dose: 120 mg Diltiazem HCl (Cardizem Cd -) 180 mg PO DAILY [facility] Last Admin: 02/23/18 10:11 Dose: 180 mg Ferrous Sulfate (Feosol -) 325 mg PO DAILY [facility] Last Admin: 02/23/18 10:10 Dose: 325 mg Furosemide (Lasix -) 20 mg PO DAILY [facility] Last Admin: 02/23/18 10:12 Dose: 20 mg Heparin Sodium (Porcine) (Heparin -) 1,000 unit IVPUSH PRN PRN PRN Reason: Heparin Heparin Sodium (Porcine) (Heparin -) 5,000 unit IVPUSH PRN PRN PRN Reason: Heparin Last Admin: 02/22/18 17:57 Dose: 5,000 unit Heparin Sodium/Dextrose (Heparin Infusion -) 25,000 units in 500 mls @ 16 mls/ hr IVPB TITR [facility]; Protocol Last Titration: 02/22/18 17:57 Dose: 950 units/hr, 19 mls/hr Metoprolol Succinate (Toprol Xl -) 25 mg PO DAILY [facility] Last Admin: 02/23/18 10:11 Dose: 25 mg Pantoprazole Sodium (Protonix -) 40 mg PO DAILY [facility] Last Admin: 02/23/18 10:10 Dose: 40 mg Polyethylene Glycol (Miralax (For Daily Use) -) 17 gm PO DAILY [facility] Last Admin: 02/23/18 10:13 Dose: 17 gm - Objective Vital Signs: Vital Signs Temperature 98.1 F 02/23/18 06:00 Pulse Rate 89 02/23/18 06:00 Respiratory Rate 20 02/23/18 06:00 Blood Pressure 130/89 02/23/18 06:00 O2 Sat by Pulse Oximetry (%) 96 02/22/18 21:00 Constitutional: Yes: Well Nourished, No Distress, Calm Cardiovascular: Yes: Pulse Irregular, Murmur (soft sounds, 2/6 DORIE lusb), S1, S2. No: JVD, Gallop Respiratory: Yes: Regular, Wheezes (diffusely). No: Accessory Muscle Use Extremities: No: Cold Edema: No Neurological: Yes: Alert, Oriented Psychiatric: No: Agitated Labs: CBC, BMP 02/23/18 06:50 02/23/18 06:50 INR, PTT INR 1.07 (0.83-1.09) 02/22/18 15:40 Assessment/Plan echo 01/2018: nl lv/rv, lesvia, mod , mod mr, mod-sev tr, mod phtn cxr: clear lungs ecg: sr, nl intervals, no ischemic changes, pac tele: afib 70s-130s bpm a/p: 72 f hx copd, htn, , mr, here with sob, cough, wheeze. sob, a.e. copd: -on iv steroids: watch for fluid retention -ongoing signif wheezing though pt reports symptomatic improvement -cont abx, BDs per pulm afib: -new onset afib with rvr here -02/22: HRs remain poorly controlled, on diltiazem 120 bid (? a.e. copd sx's +/ - steroids contributing to tachycardia). increase diltiazem to 180 am, 120 pm. add low dose metoprolol (25 qd)--watch for worsening sob/wheeze -02/23: HR tachy still at times, however overall HR trend much improved. same meds (highly unlikely low dose b1-selective BB is exacerbating wheezing) -chanvasc 3 warrants ac but she had UGIB last month and egd showed esophagitis/ ulcers -needs GI input regarding safety of initiating AC (worked up and treated by dr rosa here last month) , mr, tr: -chronic issues, following with cardio in [facility] -no signs chf here -stable on current echo, outpt f/u htn: -bp controlled -cont clonidine 0.1 qd as doing--low threshold stop this if bp's trend down on afib AVN ирина regimen
--- NOTE | 2018-02-23 11:42 | PN ---
Progress Note (short form) - Note Progress Note: Please call hair or beauty salon assistant GI for this consultation, thank you
--- NOTE | 2018-02-23 11:48 | PN ---
Progress Note (short form) - Note Progress Note: c/o palpitations and difficulty breathing when ambulating. asymptomatic at rest. denies Cp, fever, chills, N//C/D Current Medications Generic Name Dose Route Start Last Admin Trade Name Freq PRN Reason Stop Dose Admin Albuterol Sulfate 1 amp 02/21/18 04:41 Ventolin 0.083% Nebulizer Soln - NEB Q4H PRN SHORT OF BREATH/WHEEZING Albuterol/Ipratropium 1 amp 02/21/18 09:48 Duoneb - NEB RQID PRN SHORTNESS OF BREATH Ascorbic Acid 500 mg 02/22/18 10:00 02/23/18 10:11 Vitamin C - PO 500 mg DAILY [facility] Administration Budesonide/Formoterol Fumarate 2 puff 02/21/18 10:00 02/23/18 10:12 Symbicort 160/4.5mcg - IH 2 puff BID [facility] Administration Clonidine 0.1 mg 02/21/18 10:00 02/23/18 10:11 Catapres - PO 0.1 mg DAILY [facility] Administration Diltiazem HCl 180 mg 02/23/18 10:00 02/23/18 10:11 Cardizem Cd - PO 180 mg DAILY [facility] Administration Diltiazem HCl 120 mg 02/23/18 11:12 Cardizem Cd - PO DAILY@1800 [facility] Ferrous Sulfate 325 mg 02/22/18 10:00 02/23/18 10:10 Feosol - PO 325 mg DAILY [facility] Administration Furosemide 20 mg 02/22/18 10:30 02/23/18 10:12 Lasix - PO 20 mg DAILY [facility] Administration Heparin Sodium (Porcine) 1,000 unit 02/22/18 15:10 Heparin - IVPUSH PRN PRN Heparin Heparin Sodium (Porcine) 5,000 unit 02/22/18 15:10 02/22/18 17:57 Heparin - IVPUSH 5,000 unit PRN PRN Administration Heparin Heparin Sodium/Dextrose 25,000 units in 500 mls @ 16 mls/hr 02/22/18 15:15 17:57 Heparin Infusion - IVPB 950 units/hr TITR [facility] 19 mls/hr Titration Protocol 800 UNITS/HR Metoprolol Succinate 25 mg 02/22/18 13:15 02/23/18 10:11 Toprol Xl - PO 25 mg DAILY [facility] Administration Pantoprazole Sodium 40 mg 02/21/18 10:00 02/23/18 10:10 Protonix - PO 40 mg DAILY [facility] Administration Polyethylene Glycol 17 gm 02/22/18 10:00 02/23/18 10:13 Miralax (For Daily Use) - PO 17 gm DAILY [facility] Administration Last Vital Signs Temp Pulse Resp BP Pulse Ox 98.1 F 89 20 130/89 96 02/23/18 06:00 02/23/18 06:00 02/23/18 06:00 02/23/18 06:00 02/22/18 21:00 General NAD CV S1 S2 irregular tachycardic Lungs scattered wheezing, improved inspiratory effort abdomen soft NT/ND Extremities no pedal edema CBCD WBC 7.7 K/mm3 (4.0-10.0) 02/23/18 06:50 RBC 3.44 M/mm3 (3.60-5.2) L 02/23/18 06:50 Hgb 8.5 GM/dL (10.7-15.3) L 02/23/18 06:50 Hct 26.6 % (32.4-45.2) L 02/23/18 06:50 MCV 77.3 fl (80-96) L 02/23/18 06:50 MCHC 31.8 g/dl (32.0-36.0) L 02/23/18 06:50 RDW 18.4 % (11.6-15.6) H 02/23/18 06:50 Plt Count 431 K/MM3 (134-434) 02/23/18 06:50 MPV 8.1 fl (7.5-11.1) 02/23/18 06:50 CMP Sodium 140 mmol/L (136-145) 02/23/18 06:50 Potassium 3.9 mmol/L (3.5-5.1) 02/23/18 06:50 Chloride 103 mmol/L (98-107) 02/23/18 06:50 Carbon Dioxide 27 mmol/L (21-32) 02/23/18 06:50 Anion Gap 10 MMOL/L (8-16) 02/23/18 06:50 BUN 32 mg/dL (7-18) H 02/23/18 06:50 Creatinine 0.9 mg/dL (0.55-1.3) 02/23/18 06:50 Creat Clearance w eGFR > 60 (>60) 02/23/18 06:50 Calcium 7.8 mg/dL (8.5-10.1) L 02/23/18 06:50 Total Bilirubin 0.3 mg/dL (0.2-1) 02/18/18 15:07 AST 37 U/L (15-37) 02/18/18 15:07 ALT 61 U/L (13-61) 02/18/18 15:07 Alkaline Phosphatase 110 U/L (45-117) 02/18/18 15:07 Total Protein 6.6 g/dl (6.4-8.2) 02/18/18 15:07 Albumin 3.6 g/dl (3.4-5.0) 02/18/18 15:07 ASSESSMENT AND PLAN: 72yo F wtih PMH iwth COPD not on home O2, UGI bleed, CHF, CAD, , MVP and HTN presented to the ER with cough and wheezing and was admitted for acute COPD exacerbation. Course complicated by discovery of new onset afib with RVR. pt is transferred to [place] [facility] for continuous cardiac monitoring 1. Afib with RVR- HR remains uncontrolled and is symptomatic. cardiZem increased today by cardio. will cont to monitor on increased rate. Started on Heparin ggt due to [id number] score of 3. will need to monitor for bleeding with hx of recently discovered ulcers on EGD. convert to NOAC on discharge. cardio on board. echo noted. check TSH 2. Acute COPD exacerbation-improved. mild wheezing. will need to monitor while on beta ирина. on pred po taper. will do quick taper. completed abx course. Pulmonary on board. will need formal PFT outpatient. Flu swab negative 3. +UA- is not symptomatic. does not require treatment 4. iron def Anemia- slow down trend. no signs of bleeding. will need to monitor closely while on steorids and hep ggt. started on iron supplements. no indication for transfusion. 5. UGI bleed- due to gastric ulcers. as per GI is stable be on hep ggt. did not follow up with GI as outpatient 6. CHF- no signs of volume overload. not on lasix 7. Moderate 8. MVP 9. HTN- controlled. cont home medications 10. DVT ppx- hep ggt Visit type - Emergency Visit Emergency Visit: Yes ED Registration Date: 02/20/18 Care time: The patient presented to the Emergency Department on the above date and was hospitalized for further evaluation of their emergent condition. - New Patient This patient is new to me today: No - Critical Care Critical Care patient: No - Discharge Referral Referred to [facility] No
--- NOTE | 2018-02-23 13:19 | PN ---
Progress Note (short form) - Note Progress Note: PULMONARY Ocassional cough and wheezing. Episodes of rapid afib. Vital Signs Period Temp Pulse Resp BP Sys/[place] Pulse Ox Last 24 Hr 98.1 F-99.3 F 83-103 20-20 108-140/59-95 96-96 Gen: less tachypneic Heart: RRR Lung: decreased breath sounds at the bases Abd: soft, nontender Ext: + edema CBC, BMP 02/23/18 06:50 02/23/18 06:50 Active Medications Albuterol Sulfate (Ventolin 0.083% Nebulizer Soln -) 1 amp NEB Q4H PRN PRN Reason: SHORT OF BREATH/WHEEZING Albuterol/Ipratropium (Duoneb -) 1 amp NEB RQID PRN PRN Reason: SHORTNESS OF BREATH Ascorbic Acid (Vitamin C -) 500 mg PO DAILY [facility] Last Admin: 02/23/18 10:11 Dose: 500 mg Budesonide/Formoterol Fumarate (Symbicort 160/4.5mcg -) 2 puff IH BID [facility] Last Admin: 02/23/18 10:12 Dose: 2 puff Clonidine (Catapres -) 0.1 mg PO DAILY [facility] Last Admin: 02/23/18 10:11 Dose: 0.1 mg Diltiazem HCl (Cardizem Cd -) 180 mg PO DAILY [facility] Last Admin: 02/23/18 10:11 Dose: 180 mg Diltiazem HCl (Cardizem Cd -) 120 mg PO DAILY@1800 [facility] Ferrous Sulfate (Feosol -) 325 mg PO DAILY [facility] Last Admin: 02/23/18 10:10 Dose: 325 mg Furosemide (Lasix -) 20 mg PO DAILY [facility] Last Admin: 02/23/18 10:12 Dose: 20 mg Heparin Sodium (Porcine) (Heparin -) 1,000 unit IVPUSH PRN PRN PRN Reason: Heparin Heparin Sodium (Porcine) (Heparin -) 5,000 unit IVPUSH PRN PRN PRN Reason: Heparin Last Admin: 02/22/18 17:57 Dose: 5,000 unit Heparin Sodium/Dextrose (Heparin Infusion -) 25,000 units in 500 mls @ 16 mls/ hr IVPB TITR [facility]; Protocol Last Titration: 02/22/18 17:57 Dose: 950 units/hr, 19 mls/hr Metoprolol Succinate (Toprol Xl -) 25 mg PO DAILY [facility] Last Admin: 02/23/18 10:11 Dose: 25 mg Pantoprazole Sodium (Protonix -) 40 mg PO DAILY [facility] Last Admin: 02/23/18 10:10 Dose: 40 mg Polyethylene Glycol (Miralax (For Daily Use) -) 17 gm PO DAILY [facility] Last Admin: 02/23/18 10:13 Dose: 17 gm A/P Acute Asthma Exacerbation improved New Onset Atrial Fibrillation with RVR Aortic Stenosis CAD CHF HTN - off steroids - inhaled bronchodilators standing and PRN - monitor peak flow - rate control - anticoagulation - O2 to keep SpO2 >90% - DVT prophylaxis
--- NOTE | 2018-02-23 14:05 | CON.GI ---
Consult Consult Specialty:: GI Referred by:: Torsten Reason for Consultation:: Need for anticoagulation; recent UGI bleed - History of Present Illness History of Present Illness: 72 y.o. woman with CHF, COPD, recent UGI bleed while on meloxicam, admitted with increasing SOB and noted to have new onset of Afib. - History Source History Provided By: Patient, Medical Record Limitations to Obtaining History: No Limitations - Past Medical History Cardio/Vascular: Yes: HTN Pulmonary: Yes: COPD Gastrointestinal: Yes: GI Bleed Heme/Onc: Yes: Anemia - Alcohol/Substance Use Hx Alcohol Use: No - Smoking History Smoking history: Unknown if ever smoked Have you smoked in the past 12 months: No Home Medications - Allergies Allergies/Adverse Reactions: Allergies Allergy/AdvReac Type Severity Reaction Status Date / Time No Known Allergies Allergy Verified 02/18/18 13:28 - Home Medications Home Medications: Ambulatory Orders Albuterol Sulfate Inhaler - [Ventolin Hfa Inhaler -] 1 - 2 inh PO Q4H 01/23/18 Clonidine HCl 0.1 mg PO DAILY 01/23/18 Pantoprazole Sodium [Protonix] 40 mg PO DAILY 01/23/18 Budesonide/Formeterol Fumarate [SYMBICORT 160/4.5mcg -] 1 inh PO DAILY 02/18/18 Verapamil HCl [Verapamil ER] 240 mg PO DAILY 02/18/18 Physical Exam-GI Vital Signs: Vital Signs Temperature 98.2 F 02/23/18 10:00 Pulse Rate 103 H 02/23/18 10:00 Respiratory Rate 20 02/23/18 10:00 Blood Pressure 134/95 02/23/18 10:00 O2 Sat by Pulse Oximetry (%) 96 02/23/18 10:00 Constitutional: Yes: Well Nourished Cardiovascular: Yes: Pulse Irregular Respiratory: Yes: Cough, Mechanically Ventilated, Poor Air Entry ...Auscultate: Yes: Normoactive Bowel Sounds ...Rectal Exam: Yes: Deferred Labs: CBC, BMP 02/23/18 06:50 02/23/18 06:50 INR, PTT INR 1.07 (0.83-1.09) 02/22/18 15:40 Assessment/Plan New onset Afib with recent UGI bleed. The upper GI bleed was probably related to chronic NSAID use, as well as her COPD. She has not been taking NSAIDs since discharge (one hopes -- pt is vague about her home meds) and has been prescribed a high dose PPI. I would not hold anticoagulation for fear of an upper GI bleed as long as the patient understands she will need to take a gastroprotective agent and never take NSAIDs while on anticoagulation. A stroke is much more likely to cause long-term disability than an UGI bleed. NOACs are considered to be less likely to result in bleeding than warfarin. The risk of a rebleed is not trivial but has to be measured against the risk of CVA or other embolic phenomena.
[2018-02-23] MEDS: HEPARIN INFUSION - 25,000 UNITS/500 ML INFUS.BAG IVPB SCH (17:12)
[2018-02-24 06:11] LABS: HEMATOCRIT 28.2 % (32.4-45.2); MCH 24.8 pg (25.7-33.7); MCHC 32.1 g/dl (32.0-36.0); MEAN CELL VOLUME 77.3 fl (80-96); MEAN PLT VOLUME 8.1 fl (7.5-11.1); PLATELET COUNT 480 K/MM3 (134-434); RBC 3.65 M/mm3 (3.60-5.2); RDW 18.7 % (11.6-15.6); WHITE BLOOD COUNT 9.7 K/mm3 (4.0-10.0)
[2018-02-24] MEDS ORDERED: APIXABAN 5 MG TABLET PO SCH (10:00)
[2018-02-24] MEDS: FUROSEMIDE 20 MG TABLET (FP) PO SCH (10:37)
[2018-02-24] MEDS: PANTOPRAZOLE 40 MG TABLET (FP) PO SCH (10:37)
[2018-02-24] MEDS: BUDESONIDE/FORMETEROL FUMARATE 160/4.5 mcg INHALER IH SCH (10:37)
[2018-02-24] MEDS: FERROUS SO4 325 MG TABLET (FP) PO SCH (10:37)
[2018-02-24] MEDS: ASCORBIC ACID 500 MG TABLET (FP) PO SCH (10:37)
[2018-02-24] MEDS: metoPROLOL SUCCINATE 25 MG TAB.SR.24H (FP) PO SCH (10:37)
[2018-02-24] MEDS: POLYETHYLENE GLYCOL 3350 119 GM BTL PO SCH (10:37)
[2018-02-24] MEDS: cloNIDine HCL 0.1 MG TABLET PO SCH (10:37)
--- NOTE | 2018-02-24 11:09 | PN ---
Progress Note, Physician History of Present Illness: pulmonary alert,less dyspneic,less cough - Current Medication List Current Medications: Active Medications Albuterol Sulfate (Ventolin 0.083% Nebulizer Soln -) 1 amp NEB Q4H PRN PRN Reason: SHORT OF BREATH/WHEEZING Albuterol/Ipratropium (Duoneb -) 1 amp NEB RQID PRN PRN Reason: SHORTNESS OF BREATH Apixaban (Eliquis -) 5 mg PO BID [facility] Last Admin: 02/24/18 10:37 Dose: 5 mg Ascorbic Acid (Vitamin C -) 500 mg PO DAILY [facility] Last Admin: 02/24/18 10:37 Dose: 500 mg Budesonide/Formoterol Fumarate (Symbicort 160/4.5mcg -) 2 puff IH BID [facility] Last Admin: 02/24/18 10:37 Dose: 2 puff Clonidine (Catapres -) 0.1 mg PO DAILY [facility] Last Admin: 02/24/18 10:37 Dose: 0.1 mg Diltiazem HCl (Cardizem Cd -) 180 mg PO DAILY [facility] Last Admin: 02/24/18 10:37 Dose: 180 mg Diltiazem HCl (Cardizem Cd -) 120 mg PO DAILY@1800 [facility] Last Admin: 02/23/18 17:16 Dose: 120 mg Ferrous Sulfate (Feosol -) 325 mg PO DAILY [facility] Last Admin: 02/24/18 10:37 Dose: 325 mg Furosemide (Lasix -) 20 mg PO DAILY [facility] Last Admin: 02/24/18 10:37 Dose: 20 mg Metoprolol Succinate (Toprol Xl -) 25 mg PO DAILY [facility] Last Admin: 02/24/18 10:37 Dose: 25 mg Pantoprazole Sodium (Protonix -) 40 mg PO DAILY [facility] Last Admin: 02/24/18 10:37 Dose: 40 mg Polyethylene Glycol (Miralax (For Daily Use) -) 17 gm PO DAILY [facility] Last Admin: 02/24/18 10:37 Dose: 17 gm - Objective Vital Signs: Vital Signs Temperature 98.0 F 02/24/18 06:00 Pulse Rate 75 02/24/18 08:00 Respiratory Rate 18 02/24/18 08:00 Blood Pressure 138/72 02/24/18 08:00 O2 Sat by Pulse Oximetry (%) 99 02/23/18 21:00 Constitutional: Yes: Well Nourished, Calm Eyes: Yes: WNL HENT: Yes: WNL Neck: Yes: WNL Cardiovascular: Yes: Pulse Irregular, S1, S2 Respiratory: Yes: Wheezes (kaci wheezes) Gastrointestinal: Yes: Normal Bowel Sounds Extremities: Yes: WNL Edema: Yes Labs: CBC, BMP 02/24/18 05:30 Problem List - Problems (1) Asthma exacerbation Code(s): J45.901 - UNSPECIFIED ASTHMA WITH (ACUTE) EXACERBATION (2) Aortic stenosis Code(s): I35.0 - NONRHEUMATIC AORTIC (VALVE) STENOSIS (3) H/O: GI bleed Code(s): Z87.19 - PERSONAL HISTORY OF OTHER DISEASES OF THE DIGESTIVE SYSTEM (4) MVP (mitral valve prolapse) Code(s): I34.1 - NONRHEUMATIC MITRAL (VALVE) PROLAPSE (5) Asthma-COPD overlap syndrome Code(s): J44.9 - CHRONIC OBSTRUCTIVE PULMONARY DISEASE, UNSPECIFIED Assessment/Plan IMP ACUTE RESPIRATORY DISTRESS IMPROVING ACUTE ASTHMA/COPD EXACERBATION LIKELY SECONDARY TO URI AORTIC STENOSIS NEW ONSET AFIB MODERATE PULMONARY HTN HTN CHF ASHD GI BLEED PLAN ? STEROIDS INHALED BRONCHODILATORS SUPPLEMENTAL O2 ABX DAILY [facility] FLOW DR WHALEN Problem List - Problems (1) Asthma exacerbation Code(s): J45.901 - UNSPECIFIED ASTHMA WITH (ACUTE) EXACERBATION (2) Aortic stenosis Code(s): I35.0 - NONRHEUMATIC AORTIC (VALVE) STENOSIS (3) H/O: GI bleed Code(s): Z87.19 - PERSONAL HISTORY OF OTHER DISEASES OF THE DIGESTIVE SYSTEM (4) MVP (mitral valve prolapse) Code(s): I34.1 - NONRHEUMATIC MITRAL (VALVE) PROLAPSE (5) Asthma-COPD overlap syndrome Code(s): J44.9 - CHRONIC OBSTRUCTIVE PULMONARY DISEASE, UNSPECIFIED
--- NOTE | 2018-02-24 12:21 | PN ---
Progress Note, Physician Chief Complaint: sob History of Present Illness: sob, wheeze improved. not much palpit no cp ex cigs - Current Medication List Current Medications: Active Medications Albuterol Sulfate (Ventolin 0.083% Nebulizer Soln -) 1 amp NEB Q4H PRN PRN Reason: SHORT OF BREATH/WHEEZING Albuterol/Ipratropium (Duoneb -) 1 amp NEB RQID PRN PRN Reason: SHORTNESS OF BREATH Apixaban (Eliquis -) 5 mg PO BID [facility] 234 BEDS AT THE [facility] Last Admin: 02/24/18 10:37 Dose: 5 mg Ascorbic Acid (Vitamin C -) 500 mg PO DAILY [facility]S INCLUDE 234 BEDS AT THE [facility] Last Admin: 02/24/18 10:37 Dose: 500 mg Budesonide/Formoterol Fumarate (Symbicort 160/4.5mcg -) 2 puff IH BID [facility]CLUDE 234 BEDS AT THE [facility] Last Admin: 02/24/18 10:37 Dose: 2 puff Clonidine (Catapres -) 0.1 mg PO DAILY [facility]CLUDE 234 BEDS AT THE [facility] Last Admin: 02/24/18 10:37 Dose: 0.1 mg Diltiazem HCl (Cardizem Cd -) 180 mg PO DAILY [facility]CLUDE 234 BEDS AT THE [facility] Last Admin: 02/24/18 10:37 Dose: 180 mg Diltiazem HCl (Cardizem Cd -) 120 mg PO DAILY@1800 COUNTS INCLUDE 234 BEDS AT THE [facility] Last Admin: 02/23/18 17:16 Dose: 120 mg Ferrous Sulfate (Feosol -) 325 mg PO DAILY [facility]CLUDE 234 BEDS AT THE [facility] Last Admin: 02/24/18 10:37 Dose: 325 mg Furosemide (Lasix -) 20 mg PO DAILY [facility]CLUDE 234 BEDS AT THE [facility] Last Admin: 02/24/18 10:37 Dose: 20 mg Metoprolol Succinate (Toprol Xl -) 25 mg PO DAILY [facility]CLUDE 234 BEDS AT THE [facility] Last Admin: 02/24/18 10:37 Dose: 25 mg Pantoprazole Sodium (Protonix -) 40 mg PO DAILY [facility]CLUDE 234 BEDS AT THE [facility] Last Admin: 02/24/18 10:37 Dose: 40 mg Polyethylene Glycol (Miralax (For Daily Use) -) 17 gm PO DAILY [facility]CLUDE 234 BEDS AT THE [facility] Last Admin: 02/24/18 10:37 Dose: 17 gm - Objective Vital Signs: Vital Signs Temperature 98.0 F 02/24/18 06:00 Pulse Rate 75 02/24/18 08:00 Respiratory Rate 18 02/24/18 08:00 Blood Pressure 138/72 02/24/18 08:00 O2 Sat by Pulse Oximetry (%) 99 02/23/18 21:00 Constitutional: Yes: No Distress, Calm Eyes: No: Sclera Icterus HENT: No: Nasal Congestion Cardiovascular: Yes: Pulse Irregular, Murmur (DORIE lusb as before), S1, S2, Other (PMI non diplaced). No: Gallop Respiratory: Yes: Regular, Wheezes (diffuse, stable vs yesterday). No: Accessory Muscle Use, Rales Gastrointestinal: Yes: Normal Bowel Sounds, Soft. No: Tenderness Musculoskeletal: Yes: Other (No kyphosis) Extremities: No: Cold, Cyanosis Edema: No Integumentary: No: Jaundice Neurological: Yes: Alert, Oriented (x3) Psychiatric: No: Agitated Labs: CBC, BMP 02/24/18 05:30 02/23/18 06:50 INR, PTT INR 1.07 (0.83-1.09) 02/22/18 15:40 Assessment/Plan echo 01/2018: nl lv/rv, lesvia, mod , mod mr, mod-sev tr, mod phtn cxr: clear lungs ecg: sr, nl intervals, no ischemic changes, pac tele: afib HRs controlled. 21 beats WCT suspect VT > AF with aberrancy (though cannot exclude the latter) a/p: 72 f hx copd, htn, , mr, here with sob, cough, wheeze. sob, a.e. copd: -on iv steroids: watch for fluid retention -ongoing signif wheezing though pt reports symptomatic improvement -cont abx, BDs per pulm afib: -new onset afib with rvr here -02/22: HRs remain poorly controlled, on diltiazem 120 bid (? a.e. copd sx's +/ - steroids contributing to tachycardia). increase diltiazem to 180 am, 120 pm. add low dose metoprolol (25 qd)--watch for worsening sob/wheeze -02/23: HR tachy still at times, however overall HR trend much improved. same meds (highly unlikely low dose b1-selective BB is exacerbating wheezing) -02/24: HRs improved, wheezing stable on BB and sob improving. same AVN blocking meds -chadsvasc 3 warrants ac but she had UGIB last month and egd showed esophagitis/ ulcers -dr boo input appreciated. prior UGIB likely due to NSAID-induced PUD. ok for trial of AC if complies with PPI and abstinence from NSAIDs. d/w'd resident (dr karimi)--will start eliquis and he will d/w dtr these instructions. VTach: -possibly AF with abberancy (Ceasar's phenomenon) but cannot exclude VT. -normal LVEF. -K/Mg repletion to > 4/2, per usual -cont bb as doing -no signs or sx of myocardial ischemia, and VT not polymorphic--defer stress test , mr, tr: -chronic issues, following with cardio in [facility] -no signs chf here -stable on current echo, outpt f/u htn: -bp controlled -cont clonidine 0.1 qd as doing--low threshold stop this if bp's trend down on afib AVN ирина regimen
[2018-02-24] MEDS ORDERED: predniSONE 10 MG TABLET (UD) PO ONE (12:26)
[2018-02-24] MEDS ORDERED: APIXABAN 2.5 MG TABLET PO SCH (12:26)
--- NOTE | 2018-02-24 12:27 | PN ---
Teaching Attending Note Name of Resident: Neal Salomon ATTENDING PHYSICIAN STATEMENT I saw and evaluated the patient. I reviewed the resident's note and discussed the case with the resident. I agree with the resident's findings and plan as documented. SUBJECTIVE:feels better today. no palpitations today. denies CP, SOB, fever, chills, N/V/C/D OBJECTIVE: Last Vital Signs Temp Pulse Resp BP Pulse Ox 98.0 F 75 18 138/72 99 02/24/18 06:00 02/24/18 08:00 02/24/18 08:00 02/24/18 08:00 02/23/18 21:00 General NAD CV S1 S2 irregular Lungs scattered wheezing ASSESSMENT AND PLAN: 72yo F wtih PMH iwth COPD not on home O2, UGI bleed, CHF, CAD, , MVP and HTN presented to the ER with cough and wheezing and was admitted for acute COPD exacerbation. Course complicated by discovery of new onset afib with RVR. pt is transferred to [facility] for continuous cardiac monitoring 1. Afib with RVR- HR improved. cont cardizem and metoprolol dosing. evaluated by GI and ok to start NOAC. hgb been stable on hep ggt. will transition to Eliquis, dose adjusted. Cardio ok with NOAC with known hx of valvular disease. counselled on risks assoc with blood thinner. need to avoid NSAIDS and need for PPI especially while on steroids. cardio on board. echo noted. TSH WNL 2. Acute COPD exacerbation-improved. cont pred 30mg. will taper down by 5mg every 4 days with outpatient follow up. will need formal PFT outpatient. Flu swab negative 3. +UA- is not symptomatic. does not require treatment 4. iron def Anemia- no signs of bleeding. will need to monitor closely while on steorids and NOAC. on iron supplements. no indication for transfusion. repeat iron studies in 3 months 5. UGI bleed- due to gastric ulcers and use of NSAIDS at the time. cleared by GI to intiatiate NOAC. avoidance of NSAIDS. ppi ppx 6. CHF- no signs of volume overload. not on lasix 7. Moderate 8. MVP 9. HTN- controlled. cont home medications 10. DVT ppx- transition to NOAC 11. d/c home with close pulm nad cardio follow up.
[2018-02-24 12:52] LABS: ANION GAP 11 MMOL/L (8-16); BLOOD UREA NITROGEN 32 mg/dL (7-18); CHLORIDE 101 mmol/L (98-107); CO2 29 mmol/L (21-32); CREATININE 0.8 mg/dL (0.55-1.3); GLUCOSE,RANDOM 148 mg/dL (74-106); MAGNESIUM 2.3 mg/dL (1.8-2.4); POTASSIUM 4.2 mmol/L (3.5-5.1); SODIUM 141 mmol/L (136-145)
--- NOTE | 2018-02-24 14:18 | DS ---
Physical Exam: SUBJECTIVE: Patient seen and examined today. No acute events overnight. Denies chest pain, fever, chills, or sob. OBJECTIVE: Vital Signs Period Temp Pulse Resp BP Sys/[place] Pulse Ox Last 24 Hr 98.0 F-98.5 F 64-90 18-20 120-138/51-90 99 PHYSICAL EXAM GENERAL: AAOx3 NAD HEAD: Normal with no signs of trauma. EYES:EOMI PERRLA NECK: Trachea midline, full range of motion, supple. LUNGS: Right upper lung field wheezing HEART: Irregularly irregular EXTREMITIES: 1+ lower extremity edema NEUROLOGICAL: CN 2-12 intact PSYCH: Normal mood, normal affect. SKIN:No rashes or lesions appreciated LABS Laboratory Results - last 24 hr 02/24/18 02/24/18 02/24/18 05:30 05:30 05:30 WBC 9.7 RBC 3.65 Hgb 9.0 L Hct 28.2 L MCV 77.3 L MCH 24.8 L MCHC 32.1 RDW 18.7 H Plt Count 480 H MPV 8.1 PTT (Actin FS) 78.1 H Sodium 141 Potassium 4.2 Chloride 101 Carbon Dioxide 29 Anion Gap 11 BUN 32 H Creatinine 0.8 Creat Clearance w eGFR > 60 Random Glucose 148 H Calcium 8.0 L Magnesium 2.3 TSH 0.83 HOSPITAL COURSE: Date of Admission:02/20/18 Pt was admitted to [facility] on 02/18 for exacerbation of asthma and Chronic Obstructive Pulmonary Disease. Pt was treated with ceftriaxone and azithromycin , steroids, and inhaled bronchodilators standing and PRN. On 02/21/18, pt began experienced new onset Atrial Fibrillation. As a result, diltiazem drip was started and Cardiology was consulted. Cardiology started pt on 120 mg Cardizem po. Pt's HR was still uncontrolled so Cardiology increased diltiazem to 180 am, 120 pm and added low dose metoprolol 25 qd. Furthermore, anticoagulation with Eliquis 2.5 mg PO BID was prescribed to prevent the prevention of blood clots. Date of Discharge: 02/24/18 Minutes to complete discharge: 35 Discharge Summary Reason For Visit: EXC OF ASTHMA Current Active Problems Aortic stenosis (Acute) Asthma exacerbation (Acute) Asthma-COPD overlap syndrome (Acute) H/O: GI bleed (Acute) MVP (mitral valve prolapse) (Acute) Pneumonia (Acute) Condition: Improved - Instructions Diet, Activity, Other Instructions: You were admitted to [facility] on 02/18 for worsening of your asthma and Chronic Obstructive Pulmonary Disease. You were treated with antibiotics, steroids, and inhaled bronchodilators. On 02/21/18, you began to experience an irregular heart beat called Atrial Fibrillation. As a result, Cardiology was consulted who recommended a medication to help slow down your heart rate. Furthermore, anticoagulation was prescribed to prevent the prevention of blood clots. It is advised that you remain on this medication (Eliquis 2.5 mg taken by mouth two times per day) as well as the Cardizem. Medications Please take eliquis 2.5mg twice a day Please take protonix 40mg once a day, it is very important that you take this medication to prevent further gastrointestinal bleeding Please take cardizem 180mg in the morning, and then 120mg in the afternoon to help control your heart rate. Take metoprolol 25mg once a day You were also started on an iron supplement. This can cause constipation and black stools. Make sure you are having regular bowel movements. Have your iron studies repeated in 3 months to see if you need to continue. AVOID medications like advil, motrin, aleve, ibuprofen Please take prednisone on a tapering dose as follows: 30mg daily for 4 days (6 pills each day) 25mg daily for 4 days (5 pills each day) 20mg daily for 4 days (4 pills each day) 15mg daily for 4 days (3 pills each day) 10mg daily for 4 days (2 pills each day) 5mg daily for 4 days (1 pill each day) THEN STOP Please follow up with your primary care physician after you leave the hospital Please follow up with your [employer] in 1-2 weeks. Please follow up with the pulmonary team in 2 weeks for further assessment of your breathing IF you develop uncontrolled bleeding or chest pain return to the ER. Referrals: Moses Ponce MD [Staff Physician] - Wilma Mccoy MD [Staff Physician] - 1 Week Sorin Sethi MD [Staff Physician] - 1 Week Disposition: HOME - Home Medications Comprehensive Discharge Medication List: Ambulatory Orders Albuterol Sulfate Inhaler - [Ventolin HFA Inhaler -] 1 - 2 inh PO Q4H 01/23/18 Clonidine HCl 0.1 mg PO DAILY 01/23/18 Pantoprazole Sodium [Protonix] 40 mg PO DAILY 01/23/18 Budesonide/Formeterol Fumarate [SYMBICORT 160/4.5mcg -] 1 inh PO DAILY 02/18/18 Apixaban [Eliquis] 2.5 mg PO BID #60 tablet 02/24/18 Diltiazem Cd [Cardizem Cd -] 120 mg PO DAILY@1800 #30 cap.cd.24h 02/24/18 Diltiazem Cd [Cardizem Cd -] 180 mg PO DAILY #30 cap.cd.24h 02/24/18 Ferrous Sulfate [Feosol] 325 mg PO DAILY #30 ud 02/24/18 Metoprolol Succinate [Toprol XL -] 25 mg PO DAILY #30 tab.sr.24h 02/24/18 Pantoprazole Sodium [Protonix] 40 mg PO DAILY #30 tablet.dr 02/24/18 Prednisone 5 mg PO DAILY #84 tablet 02/24/18 This patient is new to me today: No Emergency Visit: Yes ED Registration Date: 02/20/18 Care time: The patient presented to the Emergency Department on the above date and was hospitalized for further evaluation of their emergent condition. Critical Care patient: No - Discharge Referral Referred to [facility] No
[2018-02-24 14:49] VITALS: BP 119/59; PULSE 84; TEMP 98.5
== END 2018-02-24 16:10 | disposition home or self-care (01) | DRG 191 ==
LOC: JER 12:55 → JERBED 17:15 → J7W 02-19 16:05 → OBSVTOIN 02-20 11:44 → JERBED 02-21 04:32 → J4S 02-21 04:33 → JERBED 02-21 10:53 → J4W 02-21 10:55
PROVIDERS: ADMIT Internal Medicine; ATTEND Internal Medicine
DX: J44.1 Chronic obstructive pulmonary disease with (acute) exacerbation (principal); I47.2 Ventricular tachycardia; I25.10 Atherosclerotic heart disease of native coronary artery without angina pectoris; E78.5 Hyperlipidemia, unspecified; I05.0 Rheumatic mitral stenosis; I34.1 Nonrheumatic mitral (valve) prolapse; D64.9 Anemia, unspecified; K27.9 Peptic ulcer, site unspecified, unspecified as acute or chronic, without hemorrhage or perforation; I48.91 Unspecified atrial fibrillation; D50.9 Iron deficiency anemia, unspecified; J06.9 Acute upper respiratory infection, unspecified; I27.20 Pulmonary hypertension, unspecified; I11.0 Hypertensive heart disease with heart failure; Z87.11 Personal history of peptic ulcer disease
CPT/HCPCS: 36415; 71045-TC-FY; 80048; 80053; 81003; 81015; 82550; 82728; 82803; 83540; 83550; 83735; 83880; 84100; 84443; 84484; 85025; 85027; 85610; 85730; 87804; 93005; 93010; 93306-TC; 94640; 94761; 99283-25; G0378; J0735; J1644